=== PATIENT | male | born 1950 | race Caucasian/White ===

== ENCOUNTER 2018-06-08 15:52 | Emergency (ER) | payer OTHER ==
[~2018-06-08] VITALS: Ht 175.3 cm; Wt 77.1 kg
[2018-06-08 16:24] LABS: ABSOLUTE BASOPHIL COUNT 0 /CUMM (0.0-0.2); ABSOLUTE EOSINOPHIL COUNT 0.1 /CUMM (0.0-0.7); ABSOLUTE GRANULOCYTE CT 4.4 /CUMM (1.4-6.5); ABSOLUTE LYMPH COUNT 1.9 /CUMM (1.2-3.4); BASOPHIL % 0.4 % (0.0-2.0); EOSINOPHIL % 1.5 % (0-5); GRANULOCYTE % 59.8 % (42.2-75.2); HEMATOCRIT 43.9 % (42-52); MEAN CORPUSCULAR HGB CONC 33.6 G/DL (33.0-37.0); MEAN CORPUSCULAR VOLUME 89.2 FL (80.0-94.0); MEAN PLATELET VOLUME 7.4 FL (7.4-10.4); PLATELET COUNT 251 /CUMM (130-400); RBC DISTRIBUTION WIDTH 14.4 % (11.5-14.5); RED BLOOD CELL CT 4.92 /CUMM (4.70-6.10); WHITE BLOOD CELL COUNT 7.4 /CUMM (4.8-10.8)
--- NOTE | 2018-06-08 17:05 | ED GI/GU/ABDOMINAL COMPLAINT ---
History of Present Illness General Chief Complaint: Abdominal Pain/Flank Pain Stated Complaint: PER R SIDED ABD PAIN AND "ALOT OF BURPING" Source: patient, family Exam Limitations: no limitations Vital Signs & Intake/Output Vital Signs & Intake/Output Vital Signs Date Time Temp Pulse Resp B/P B/P Pulse O2 O2 Flow FiO2 Mean Ox Delivery Rate 06/08 1948 98.0 76 16 144/88 97 Room Air ED Intake and Output 06/09 0000 06/08 1200 Intake Total 0 Output Total 0 Balance 0 Intake, Oral 0 Output, Urine 0 Patient 170 lb Weight Weight Reported by Patient Measurement Method Allergies Coded Allergies: No Known Allergies (06/08/18) Reconcile Medications Amlodipine Besylate (Unknown Strength) TABLET (Unknown Dose) PO DAILY BP ( Reported) Esomeprazole Magnesium (Nexium) 20 MG CAPSULE.DR 1 CAP PO DAILY GI (Reported) Hydrocodone/Acetaminophen ([place] 5-325 Tablet) 5 MG-325 MG TABLET 1-2 TAB PO Q4-6 PRN PRN pain Metoprolol Succinate (Unknown Strength) TAB (Unknown Dose) PO DAILY HEART/BP (Reported) Ondansetron (Zofran Odt) 4 MG TAB.RAPDIS 1 TAB SL TID PRN nausea Tamsulosin HCl (Flomax) 0.4 MG CAP.ER.24H 1 CAP PO DAILY kideny stones Triage Note: 68 Y/O MALE C/O SUDDEN ONSET RUQ/RLQ PAIN, APPROX 1 HOUR AGO WHILE AT HOME. PT REPORTS NAUSEA. STATES PAIN IS NONRADIATING AND "SHARP". DENIES URINARY SYMPTOMS. HX APPENDECTOMY. PT APPEARS UNCOMFORTABLE. IV EST. TAKEN TO [facility] FOR EVAL Triage Nurses Notes Reviewed? yes Onset: Abrupt Duration: day(s): (1), constant, continues in ED, getting worse Timing: single episode today Quality/Severity: sharpness, severe Severity Numbers: 9 Location: right flank, right lower quadrant, right upper quadrant Radiation: back Activities at Onset: none Prior Abdominal Problems: none Past Sexual History: Unobtainable at this time HPI: 68 year old male with hx of htn presents for eval of sudden onset ruq rlq and rt flank pain. pt was at rest when symptoms started he's never had this before. Describes the pain as sharp radiating from the right back to the right lower quadrant and right flank and groin. No urinary symptoms hematuria testicular pain fever chest pain or shortness of breath. He reports associated nausea and vomiting. No difficulty urinating no abdominal surgeries. (Marialuisa Brown) Past History Travel History Traveled to [place] past 21 day No Medical History Any Pertinent Medical History? 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 No (Marialuisa Brown) Review of Systems Review of Systems Constitutional: Reports: no symptoms. EENTM: Reports: no symptoms. Respiratory: Reports: no symptoms. Cardiovascular: Reports: no symptoms. GI: Reports: see HPI, abdominal pain, nausea, vomiting. Genitourinary: Reports: no symptoms. Musculoskeletal: Reports: see HPI, back pain. Skin: Reports: no symptoms. Neurological/Psychological: Reports: no symptoms. Hematologic/Endocrine: Reports: no symptoms. Immunologic/Allergic: Reports: no symptoms. All Other Systems: Reviewed and Negative (Marialuisa Brown) Physical Exam Physical Exam General Appearance: well developed/nourished, alert, awake, moderate distress Head: atraumatic, normal appearance Eyes: Bilateral: normal appearance, EOMI. Ears, Nose, Throat, Mouth: hearing grossly normal, moist mucous membrane Neck: normal inspection, supple, full range of motion Respiratory: normal breath sounds, chest non-tender, no respiratory distress, lungs clear Cardiovascular: regular rate/rhythm, normal peripheral pulses Peripheral Pulses: 2+ radial (R), 2+ radial (L) Gastrointestinal: normal bowel sounds, soft, no organomegaly, tenderness (rt flank, rlq) Back: normal inspection, normal range of motion, right-sided lumbar paraspinal tenderness to palpation no CVA tenderness no midline tenderness Extremities: normal range of motion Neurologic/Psych: no motor/sensory deficits, awake, alert, oriented x 3, normal gait, normal mood/affect Skin: intact, normal color, warm/dry Core Measures ACS in differential dx? No Sepsis Present: No Sepsis Focused Exam Completed? No (Marialuisa Brown) Progress Differential Diagnosis: biliary colic, bowel obstruction, colon cancer, cholecystitis, diverticulitis, pancreatitis, prostatitis, testicular torsion, ureterolithiasis, urinary retention, urethritis, UTI/pyelo Plan of Care: Laboratory Tests 06/08/18 191: Lactic Acid 1.0 06/08/181899: Urinalysis LIGHT H, Urine Color YEL, Urine Clarity CLEAR, Urine pH 7.0, Ur Specific [place] 1.010, Urine Protein NEG, Urine Ketones TRACE H, Urine Nitrite NEG, Urine Bilirubin NEG, Urine Urobilinogen 0.2, Ur Leukocyte Esterase NEG, Ur Microscopic SEDIMENT EXAMINED, Urine RBC 10-15 H, Urine WBC RARE, Ur Epithelial Cells RARE, Urine Crystals 1+ CA OX H, Urine Mucus FEW, Urine Hemoglobin MOD H , Urine Glucose NEG Patient is here with sudden onset of right lower back flank and right lower quadrant pain. Associated with nausea and vomiting. No hematuria. Vital signs are stable. Labs EKG CT scan ordered patient medicated with fluids Zofran and Toradol. Blood work is not showing any significant findings other than a mildly elevated lactic acid. Additional fluids ordered IV Tylenol ordered for additional pain control. CT scan reveals a distal 3 mm kidney stone that's nearly entered the bladder. Additionally there is a suspicious left renal mass that according the radiologist is likely to be a malignancy. Patient is feeling much better he's able tolerate fluids. Reviewed results with patient. Patient will be treated for his kidney stone pain with [place] Flomax Zofran and ibuprofen. Discussed with patient about left-sided renal mass and the importance of close follow-up with urology. Patient was referred to Dr. Arnett advised to call tomorrow. Discussed return precautions case discussed with Dr. marinelli he agrees. Diagnostic Imaging: Viewed by Me: CT Scan. Discussed w/RAD: CT Scan. Radiology Impression: PATIENT: MARIALUISA ORTIZ PRESENT AGE : 68 PATIENT ACCOUNT NO: [id number] : 51 LOCATION: [facility] ORDERING PHYSICIAN: Marialuisa CHESTER SERVICE DATE: 06/08/18 EXAM TYPE: CAT - CT ABD & PELVIS W IV CONTRAST EXAMINATION: CT ABDOMEN AND PELVIS WITH CONTRAST CLINICAL INFORMATION: Right lower quadrant pain. Nausea/vomiting. COMPARISON: None TECHNIQUE: Multidetector volumetric imaging was performed of the abdomen and pelvis following IV administration of 95 mL of Omnipaque 300 intravenous contrast. Sagittal and coronal reformatted images were obtained on the technologist's workstation. DLP: 308 mGy-cm FINDINGS: LUNG BASES: Minimal dependent atelectasis. LIVER, GALLBLADDER, AND BILIARY TREE: The liver is normal in size, shape, and attenuation. A 6 mm and 4 mm hypoattenuating foci in segments 6 and 5, respectively, are too small to characterize. No suspicious lesions are identified. No biliary ductal dilatation is present. The gallbladder is unremarkable with no evidence of radiopaque gallstones, gallbladder wall thickening, or obvious pericholecystic inflammatory changes. PANCREAS: Unremarkable. SPLEEN: Unremarkable. ADRENAL GLANDS: Unremarkable. KIDNEYS AND URETERS: There is an enhancing 2.8 x 2.7 x 3.2 cm exophytic mass at the posterior margin of the interpolar region of the left kidney. No additional renal lesions are identified. Renal veins are patent. There is mild right perinephric stranding with mild right hydroureteronephrosis. A punctate 2 mm calculus is present within the upper pole of the right kidney. No additional renal calculi. BLADDER: A 3 mm calculus is present in the right posterolateral aspect of the bladder, likely either recently passed or at the internal orifice of the right ureter. Bladder is otherwise normal. GASTROINTESTINAL TRACT: Stomach, small bowel, and colon are normal in caliber. No bowel wall thickening or surrounding inflammatory changes. Appendix is not seen, though no acute inflammatory changes of appendicitis are identified in the right lower quadrant. There are a few colonic diverticula. No evidence of acute diverticulitis. No intraperitoneal free fluid or free air. ABDOMINAL WALL: No significant hernia is appreciated. LYMPH NODES: Normal. VASCULAR: Minimal calcific atherosclerosis in the abdominal aorta. No aneurysmal dilatation. PELVIC VISCERA: Dystrophic central calcifications are present in the prostate gland. Prostate gland is normal in size. OSSEOUS STRUCTURES: Mild multilevel degenerative disc disease. Facet arthropathy is present in the lower lumbar spine as well. No fracture or malalignment. Minimal osteoarthritis in the hips. 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 IMPRESSION: 1. Mild right hydroureteronephrosis and right perinephric stranding is likely produced by a 3 mm calculus at the posterolateral margin of the bladder. This calculus is either within the internal orifice of the right ureter or recently passed into the bladder. 2. A 3.2 cm exophytic enhancing mass at the left kidney, most compatible with neoplasm. Renal cell carcinoma is most likely, though oncocytoma is also possible. Urologic consultation is advised. 3. No evidence of appendicitis. 4. Multiple colonic diverticula without evidence of acute diverticulitis. This critical result was discussed by telephone with Marialuisa Miguel PA-C at 6:18 PM on 06/08/2018 . DICTATED BY: Jd Guaman MD DATE/TIME DICTATED:06/08/181803 AUGER SUPERVISOR:GILBERT DATE/TIME TRANSCRIBED:06/08/181803 CONFIDENTIAL, DO NOT COPY WITHOUT APPROPRIATE AUTHORIZATION. <Electronically signed in Other Vendor System> SIGNED BY: Jd Guaman MD 06/08/181827 Initial ED EKG: normal sinus rhythm, RBBB, nonspecific ST T wave chg (Marialuisa Brown) Departure Departure Disposition: HOME OR SELF CARE Condition: Stable Clinical Impression Primary Impression: Kidney stone Secondary Impressions: Renal mass Referrals: Melquiades SHI,Jose Alberto Juarez MD,Iain Barba (PCP/Family) Additional Instructions: Rest and drink plenty of fluids. Flomax as directed. Zofran for nausea. Tylenol for pain and [place] for severe pain only. You need to call Dr. Arnett tomorrow for further evaluation of her kidney stone and renal mass. Monitor symptoms if you have worsening pain and fever unable tolerate fluids unable to urinate or any other concerns return immediately. Departure Forms: Customer Survey General Discharge Information Prescriptions: Current Visit Scripts Tamsulosin HCl (Flomax) 1 CAP PO DAILY #15 CAP Ondansetron (Zofran Odt) 1 TAB SL TID PRN nausea #15 TAB Hydrocodone/Acetaminophen ([place] 5-325 Tablet) 1-2 TAB PO Q4-6 PRN PRN pain #10 TAB (Marialuisa Brown) PA/RITUAL CIRCUMCISER Co-Sign Statement Statement: ED Attending supervision documentation- x I saw and evaluated the patient. I have also reviewed all the pertinent lab results and diagnostic results. I agree with the findings and the plan of care as documented in the PA's/RITUAL CIRCUMCISER's documentation. [] I have reviewed the ED Record and agree with the PA's/RITUAL CIRCUMCISER's documentation. [] Additions or exceptions (if any) to the PAs/RITUAL CIRCUMCISER's note and plan are summarized below: [] (Darlene SHI,Sherwin)
[2018-06-08] MEDS ORDERED: METOPROLOL SUCC25 M1 PO (17:58)
[2018-06-08] MEDS ORDERED: NEXIUM20 M1 PO (17:58)
[2018-06-08] MEDS ORDERED: AMLODIPINE BES2.5 M1 PO (17:58)
--- NOTE | 2018-06-08 18:28 | CT SCAN REPORT ---
EXAMINATION: CT ABDOMEN AND PELVIS WITH CONTRAST CLINICAL INFORMATION: Right lower quadrant pain. Nausea/vomiting. COMPARISON: None TECHNIQUE: Multidetector volumetric imaging was performed of the abdomen and pelvis following IV administration of 95 mL of Omnipaque 300 intravenous contrast. Sagittal and coronal reformatted images were obtained on the technologist's workstation. DLP: 308 mGy-cm FINDINGS: LUNG BASES: Minimal dependent atelectasis. LIVER, GALLBLADDER, AND BILIARY TREE: The liver is normal in size, shape, and attenuation. A 6 mm and 4 mm hypoattenuating foci in segments 6 and 5, respectively, are too small to characterize. No suspicious lesions are identified. No biliary ductal dilatation is present. The gallbladder is unremarkable with no evidence of radiopaque gallstones, gallbladder wall thickening, or obvious pericholecystic inflammatory changes. PANCREAS: Unremarkable. SPLEEN: Unremarkable. ADRENAL GLANDS: Unremarkable. KIDNEYS AND URETERS: There is an enhancing 2.8 x 2.7 x 3.2 cm exophytic mass at the posterior margin of the interpolar region of the left kidney. No additional renal lesions are identified. Renal veins are patent. There is mild right perinephric stranding with mild right hydroureteronephrosis. A punctate 2 mm calculus is present within the upper pole of the right kidney. No additional renal calculi. BLADDER: A 3 mm calculus is present in the right posterolateral aspect of the bladder, likely either recently passed or at the internal orifice of the right ureter. Bladder is otherwise normal. GASTROINTESTINAL TRACT: Stomach, small bowel, and colon are normal in caliber. No bowel wall thickening or surrounding inflammatory changes. Appendix is not seen, though no acute inflammatory changes of appendicitis are identified in the right lower quadrant. There are a few colonic diverticula. No evidence of acute diverticulitis. No intraperitoneal free fluid or free air. ABDOMINAL WALL: No significant hernia is appreciated. LYMPH NODES: Normal. VASCULAR: Minimal calcific atherosclerosis in the abdominal aorta. No aneurysmal dilatation. PELVIC VISCERA: Dystrophic central calcifications are present in the prostate gland. Prostate gland is normal in size. OSSEOUS STRUCTURES: Mild multilevel degenerative disc disease. Facet arthropathy is present in the lower lumbar spine as well. No fracture or malalignment. Minimal osteoarthritis in the hips. 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 IMPRESSION: 1. Mild right hydroureteronephrosis and right perinephric stranding is likely produced by a 3 mm calculus at the posterolateral margin of the bladder. This calculus is either within the internal orifice of the right ureter or recently passed into the bladder. 2. A 3.2 cm exophytic enhancing mass at the left kidney, most compatible with neoplasm. Renal cell carcinoma is most likely, though oncocytoma is also possible. Urologic consultation is advised. 3. No evidence of appendicitis. 4. Multiple colonic diverticula without evidence of acute diverticulitis. This critical result was discussed by telephone with Jose Miguel PA-C at 6:18 PM on 06/08/2018 .
[2018-06-08] MEDS ORDERED: NORCO 5-325 TA1 EACH PO (19:43)
[2018-06-08] MEDS ORDERED: FLOMAX0.4 M1 PO (19:43)
[2018-06-08] MEDS ORDERED: ZOFRAN ODT4 M1 SL (19:43)
[2018-06-08 19:48] VITALS: BP 144/88
== END 2018-06-08 19:57 ==
LOC: ERH 15:52
PROVIDERS: Physician Assistant Medical
DX: N20.0 Calculus of kidney (principal); N28.89 Other specified disorders of kidney and ureter
CPT/HCPCS: 74177; 81001; 93005; 93010; 96374; 96375; J0131; J1885; J2405

== ENCOUNTER 2018-07-01 01:49 | Inpatient (IN) | payer OTHER ==
[~2018-07-01] VITALS: Ht 175.3 cm; Wt 78.0 kg
[~2018-07-01 01:49] MED LIST: AMLODIPINE BES2.5 M1 PO; FLOMAX0.4 M1 PO; METOPROLOL SUCC25 M1 PO; NEXIUM20 M1 PO; NORCO 5-325 TA1 EACH PO; ZOFRAN ODT4 M1 SL
--- NOTE | 2018-07-01 13:43 | Operative Report ---
Operative/Inv Procedure Report Surgery Date: 07/01/18 Name of Procedure: left radical: laproscopic hand assist nephrectomy: cystoscopy with left stent insertion. Pre-Operative Diagnosis: left renal mass Post-Operative Diagnosis: same Estimated Blood Loss: 50ml to 100ml Surgeon/Manager Commercial Sales: Jose Alberto Arnett MD Anesthesia: general endotracheal tube Drains: 16 fr chacon Specimens: left kidney with ureter: urine culture Microbiology: ucx sent Complications: none Operative Indication: large left renal mass abutting renal pelvis Operative/Procedure Note Note: Pre-operative review of procedure with risks and benefits discussed with pt and his at length. Both reviewed CT findings with me to visualize mass/ surrounding abdominal anatomy. All questions answered for pt. and pre-op. The patient was taken to the operating room and placed on the OR table in supine position. Timeout was performed, with the patient awake, to confirm correct patient identity, laterality, procedure, anesthesia, and other pertinent intraoperative information. After adequate anesthesia and antibiotics, the patient was then placed lithotomy stirrups draped and prepped in usual surgical fashion. :Local block per anesthesia was performed. Afterward, I was able to use a 22French cystoscope sheath with 30 angle lens, which was inserted under direct visualization into the urethra. Upon entering the bladder, the bladder was noted to be free of tumor free, free of stone. Both ureteral orifices were in their orthotopic position with clear reflux bilaterally. The left ureteral orifice was intubated with a 6 Macedonian open-ended catheter, which was advanced to the left renal pelvis without difficulty. This ureteral stent is utilized intraoperatively to easily identify, and confirm the left ureter (The stent is subsequently removed by the circulating nurse, under the drapes, once the ureter is identified and ready for transection). The open ended stent was then attached to a ureter drainage bag. The bladder was left full, and the cystoscope was removed leaving this stent in place. An 18 Macedonian Chacon catheter was inserted without difficulty draining clear fluid. 10 mL of sterile water was placed into the balloon. At this point the patient was then placed in a modified right side down, left side up (15 degree angle) position, with slight lisa-knife, and kidney rest elevated at proper flank position. The patient's bony prominences were well- padded with eggcrate foam and pillows. The patient was secured to OR the table with 3 inch silk tape, and strap. A 7 cm vivek-umbilical, and inferior midline incision was made using a 10 blade knife. This incision was then further open through the adipose tissue, to the rectus fascia using Bovie cautery. With the midline of the fascia clearly visualized, a 15 blade knife was then used to incise the fascia, at the linia alba, and the rectus muscle at the midline. The peritoneum was identified and incised using Metzenbaum scissor. The fascial incision was extended along the entire length of the skin incision. Intestine was noted to be intact without injury at this point. The gel-port was then inserted into the abdomen appropriatly without tethering. Using a blunt trocar through the GelPort, insufflation was then performed with a maximum pressure of 12 mmHg. The laparoscope was then inserted through the port, and exploratory laparoscopy was then performed revealing the findings as above. A 12 mm port was then inserted in the lower mid-clavicular region by using a 15 blade knife to make an incision, and the verese-dilating port was inserted under direct visualization- with the laparoscope in the GelPort site for direct vision. A second 12 mm port was then inserted in the left mid axilary abdominal site, using the same direct-vision/versese self-dilating technique. My double gloved left hand was then placed through the GelPort, the laparoscope was placed in the lower mid axilary port, and the Harmonic scalpel was placed in the left mid-clavicular port. The small intestines were mobilized medially in order to expose the ledt side white line of Toldt. Using Harmonic scalpel, the white line of Toldt was incised from the left lower quadrant all the way to the left splenic flexure, thus releasing the large bowel on the left side. The bowel was then gently mobilized medially, in order to expose the Gerona's fascia. Blunt and sharp dissection using the Harmonic scalpel was performed in order to release the lateral fascial attachments of the left kidney. Blunt and sharp dissection, with harmonic, was then performed superiorly in order to release the kidney superiorly including the Gerona's fascia. The adrenal gland, and the splenic vessels were visualized and uninjured. The left kidney being mobilized, the lower pole renal mass was easily identified, and it felt hard. Anterior dissection; using blunt, and endoshear dissection, was performed in order to gently expose the left renal arter (solitary), and solitary left renal vein. With the kidney mobilized superiorly, laterally, and posteriorly, the inferior portion was blunt and sharply dissected. The left ureter was clearly identified with the stent in place. The circulating nurse was then able to remove the stent under the drapes. The ureter was then clipped using multiple clips inferiorly and and superiorly with a space of 2 cm and between the clips. Harmonic scalpel was then used to transect the right ureter between the clips. Blunt and sharp dissection was then performed superior to the ureter following the ureter in order to reach the duodenum. Further skeletonizatio/ddissection of the renal pedicle was performed in order to clear the left renal artery, and left renal vein of excessive of excess areoral/adipose tissue. Despite multiple attempts, I was not able to adequately isolate the left renal artery from the left renal vein. I therefore decided to transect the vascular pedicle all together. Using the vascular maria antonia, with a laproscopic Endo JUNAA, the stapling device was placed over the entire vascular pedicle, and clamped securely. The stapling devise was fired, and the artery and vein were transsected and adequately stapled at the same time. Good hemostasis was noted, and the kidney softened. With the kidney well mobilized superiorly, medially, inferiorly, laterally, posteriorly, the left kidney was then easily extracted through the Gel-port site, and sent to pathology. The abdomen was thoroughly irrigated with sterile water, and the fluid was then aspirated. Noted to be free of hemorrhage, and the left renal pedicle was the re-evaluated, noted to be intact without any bleeding. Surgi-riya, and coagulating powder, was placed over the surgical field as well as over the renal pedicle stump. The intestines, spleen, liver, were once again investigated and noted to be intact. The intestines were then allowed to fall back into their anatomic positions. Both of the trocar PORTS WERE THEN REMOVED ;WITH THE FASCIA OF BOTH PORTS closed WITH 0-VICRYL [id number]-NEROX STITCH. THE port-site SKIN WAS CLOSED USING skin maria antonia. THE GEL-PORT INCISION WAS THEN CLOSED BY RE-APPROXIMATING THE FASCIA WITH A LOOPED 0 -PROLENE SUTURE, MAKING CERTAIN THAT NO INTESTINES WERE injured or CAUGHT IN- BETWEEN THE STITCHES. THE DONYA'S FASCIA WAS THEN RE-APPROXIMATED USING INTERRUPTED 2-0 chromic sutures in order to collapse the -space. The wound was once again copiously irrigated with sterile water, and dried noting good hemostasis. The skin was then closed using skin-maria antonia and island dressing. All sponge, needle, and instrument count was correct at the end of the case. The patient tolerated procedures well, was then extubated, and taken to the recovery room in satisfactory condition. Findings: rock hard left lp renal mass: gerota's fashia intact and pliable. vasular pedicle without palpable mass/clot/plaque. no desmoplastic changes. Discharge Disposition: PACU Additional Comments: pt to ICU for close observation: ICU notified pre-op. CC: Jose Alberto Arnett MD
[2018-07-01 14:39] LABS: ABSOLUTE BASOPHIL COUNT 0 /CUMM (0.0-0.2); ABSOLUTE EOSINOPHIL COUNT 0 /CUMM (0.0-0.7); ABSOLUTE GRANULOCYTE CT 15.3 /CUMM (1.4-6.5); ABSOLUTE LYMPH COUNT 0.5 /CUMM (1.2-3.4); ABSOLUTE MONOCYTE COUNT 0.3 /CUMM (0.10-0.60); BASOPHIL % 0 % (0.0-2.0); EOSINOPHIL % 0 % (0-5); HEMATOCRIT 40.3 % (42-52); MEAN CORPUSCULAR HGB 30.2 PG (27.0-31.0); MEAN CORPUSCULAR HGB CONC 33.6 G/DL (33.0-37.0); MEAN CORPUSCULAR VOLUME 89.9 FL (80.0-94.0); MEAN PLATELET VOLUME 7.5 FL (7.4-10.4); PLATELET COUNT 184 /CUMM (130-400); RED BLOOD CELL CT 4.48 /CUMM (4.70-6.10)
--- NOTE | 2018-07-01 14:50 | RADIOLOGY REPORT ---
EXAMINATION: CHEST 1 VIEW CLINICAL INFORMATION: Status post nephrectomy. In PACU. Follow-up. COMPARISON: 08/10/2013. TECHNIQUE: An AP view of the chest is provided. FINDINGS: The cardiac silhouette is not enlarged. The mediastinal and hilar contours are unremarkable. There are neither pleural effusions nor pneumothoraces. There are no consolidations. The osseous structures are stable. IMPRESSION: No evidence for acute disease.
[2018-07-01 14:54] LABS: GRANULOCYTE % 95.1 % (42.2-75.2)
--- NOTE | 2018-07-01 16:35 | PN- Urology ---
See Addendum Subjective Subjective: POST-OP NOTE Sleeping in PACU. 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 Awaiting transfer to ICU. No dizziness. No shortness of breath. No chest pains. Labs and xray stable. Objective Vital Signs and I&Os Intake & Output 07/01 1600 07/01 0800 07/01 0000 06/30 1600 06/30 0800 06/30 0000 Intake Total Output Total Balance Patient 170 lb Weight pacu flowsheet reviewed, vss Physical Exam: General - sleepy. comfortable. no acute distress. Lungs - clear bilaterally. no w/r/r. Cardiac - s1s2. reg. Abdomen - midline dressing stained, but intact. no drains. - chacon draining clear, yellow urine. Extremities - warm bilaterally. no c/c/e. calves soft and nontender b/l. athrombics active b/l. Current Medications: Current Medications Sig/Lizeth Start time Last Medication Dose Route Stop Time Status Admin Ciprofloxacin 500 MG ONCE 07/01 0000 NR PO 07/01 2359 Hydromorphone HCl 50 MG Q24H PRN 07/01 1415 AC Sodium Chloride 45 ML IV Results Last 48 Hours of Labs: Laboratory Tests 07/01 1425 Chemistry Sodium (137 - 145 mmol/L) 140 Potassium (3.5 - 5.1 mmol/L) 3.7 Chloride (98 - 107 mmol/L) 106 Carbon Dioxide (22 - 30 mmol/L) 23 Anion Gap (5 - 16) 11 BUN (9 - 20 mg/dL) 16 Creatinine (0.7 - 1.2 mg/dL) 0.9 Estimated GFR (>60 ml/min) > 60 BUN/Creatinine Ratio (7 - 25 %) 17.8 Hematology CBC w Diff NO MAN DIFF REQ WBC (4.8 - 10.8 /CUMM) 16.0 H RBC (4.70 - 6.10 /CUMM) 4.48 L Hgb (14.0 - 18.0 G/DL) 13.5 L Hct (42 - 52 %) 40.3 L MCV (80.0 - 94.0 FL) 89.9 MCH (27.0 - 31.0 PG) 30.2 MCHC (33.0 - 37.0 G/DL) 33.6 RDW (11.5 - 14.5 %) 14.0 Plt Count (130 - 400 /CUMM) 184 MPV (7.4 - 10.4 FL) 7.5 Gran % (42.2 - 75.2 %) 95.1 H Lymphocytes % (20.5 - 51.1 %) 3.0 L Monocytes % (1.7 - 9.3 %) 1.9 Eosinophils % (0 - 5 %) 0 Basophils % (0.0 - 2.0 %) 0 Absolute Granulocytes (1.4 - 6.5 /CUMM) 15.3 H Absolute Lymphocytes (1.2 - 3.4 /CUMM) 0.5 L Absolute Monocytes (0.10 - 0.60 /CUMM) 0.3 Absolute Eosinophils (0.0 - 0.7 /CUMM) 0 Absolute Basophils (0.0 - 0.2 /CUMM) 0 Assessment/Plan Assessment/Plan This 68 year old male is POD#0 s/p left radical laparoscopic hand-assist nephrectomy, and cystoscopy with left stent insertion for left renal mass currently npo / 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
[2018-07-01 18:30] VITALS: BP 190/100
--- NOTE | 2018-07-01 19:53 | Admission Core Measures ---
Acute Coronary Syndrome (CM) ACS Core Measures Acute Coronary Syndrome Diagnosis No Congestive Heart Failure (NEW) CHF Core Measures Congestive Heart Failure Diagnosis No Cerebrovascular Accident CVA Core Measures CVA/TIA Diagnosis No Venous Thromboembolism VTE Core Fredo (View Protocol) VTE Risk Factors Surgery No Mechanical VTE Prophylaxis d/t N/A MechProphylax Ordered No VTE Pharm Prophylaxis d/t NA PharmProphylax ordered Problem List As ranked by this Provider includes Assessment & Plan 1. Renal mass HOME MEDS Home Med List Amlodipine Besylate (Unknown Strength) TABLET (Unknown Dose) PO DAILY BP ( Reported) Esomeprazole Magnesium (Nexium) 20 MG CAPSULE.DR 1 CAP PO DAILY GI (Reported) Metoprolol Succinate 25 MG TAB 1 TAB PO DAILY HTN (Reported)
[2018-07-01 20:00] VITALS: BP 164/88
[2018-07-01 21:00] VITALS: BP 162/84
[2018-07-02 05:58] LABS: ABSOLUTE BASOPHIL COUNT 0 /CUMM (0.0-0.2); ABSOLUTE EOSINOPHIL COUNT 0 /CUMM (0.0-0.7); ABSOLUTE GRANULOCYTE CT 18.2 /CUMM (1.4-6.5); ABSOLUTE LYMPH COUNT 0.7 /CUMM (1.2-3.4); ABSOLUTE MONOCYTE COUNT 1.9 /CUMM (0.10-0.60); BASOPHIL % 0 % (0.0-2.0); EOSINOPHIL % 0 % (0-5); GRANULOCYTE % 87.8 % (42.2-75.2); HEMATOCRIT 41.1 % (42-52); MEAN CORPUSCULAR HGB 30.1 PG (27.0-31.0); MEAN CORPUSCULAR HGB CONC 33.3 G/DL (33.0-37.0); MEAN CORPUSCULAR VOLUME 90.4 FL (80.0-94.0); PLATELET COUNT 239 /CUMM (130-400); RBC DISTRIBUTION WIDTH 14.2 % (11.5-14.5); RED BLOOD CELL CT 4.55 /CUMM (4.70-6.10); WHITE BLOOD CELL COUNT 20.7 /CUMM (4.8-10.8)
--- NOTE | 2018-07-02 07:38 | PN- Urology ---
Subjective Subjective: Patient evaluated in the ICU. No acute events overnight. Remains mildly hypertensive. Chacon in place. No aphasia, no difficulty swallowing. No significant increase in left arm function. Still complains of moderate to severe abdominal left flank pain. No nausea. Morphine is helping. No bowel movements, no flatus Objective Vital Signs and I&Os Vital Signs Date Time Temp Pulse Resp B/P B/P Pulse O2 O2 Flow FiO2 Mean Ox Delivery Rate 07/02 99 Nasal 2.0L Cannula 07/01 2100 82 14 162/84 07/01 2000 97.0 80 14 164/88 07/01 2000 99 Nasal 2.0L Cannula 07/01 1830 97.7 83 18 190/100 07/010 83 190/100 07/01 1830 97.7 83 20 190100 100 Nasal 2.0L Cannula 07/01 1830 100 Nasal 2.0L Cannula Intake & Output 07/02 0807/02 0000 07/01 1600 07/01 0800 07/01 0000 06/30 1600 Intake Total 1106 711 Output Total 500 350 Balance 606 361 Intake, IV 1056 711 Intake, Oral 50 0 Number 0 0 Bowel Movements Output, Urine 500 350 Patient 173 lb 170 lb Weight Weight Reported by Patient Measurement Method Physical Exam: Well-developed well-nourished no apparent distress. Mildly drowsy but arousable. HEENT: Atraumatic, extraocular motion intact, no significant asymmetry Neck: Supple, no lymphadenopathy Respiratory: No respiratory distress Abdomen: Lower midline incision with trace amount of serosanguineous drainage, dry. Appropriate abdominal tenderness. Extremities: No edema, no calf pain Neuro: Alert and oriented x3, speech clear, smile with mild asymmetry although likely baseline, no significant facial droop Left upper extremity, no motor function of the trapezius deltoid biceps or triceps, patient is able to grasp, 2 out of 5 strength, no wrist drop. No significant change from previous exam last evening. Psych: Mood affect normal, normal memory normal judgment. Skin: Warm and dry, no rash on exposed skin Results Last 48 Hours of Labs: Laboratory Tests 07/02 07/01 0440 1425 Chemistry Sodium (137 - 145 mmol/L) 137 140 Potassium (3.5 - 5.1 mmol/L) 3.9 3.7 Chloride (98 - 107 mmol/L) 101 106 Carbon Dioxide (22 - 30 mmol/L) 22 23 Anion Gap (5 - 16) 14 11 BUN (9 - 20 mg/dL) 18 16 Creatinine (0.7 - 1.2 mg/dL) 1.3 H 0.9 Estimated GFR (>60 ml/min) 55 L > 60 BUN/Creatinine Ratio (7 - 25 %) 13.8 17.8 Hematology CBC w Diff MAN DIFF ORDERED NO MAN DIFF REQ WBC (4.8 - 10.8 /CUMM) 20.7 H 16.0 H RBC (4.70 - 6.10 /CUMM) 4.55 L 4.48 L Hgb (14.0 - 18.0 G/DL) 13.7 L 13.5 L Hct (42 - 52 %) 41.1 L 40.3 L MCV (80.0 - 94.0 FL) 90.4 89.9 MCH (27.0 - 31.0 PG) 30.1 30.2 MCHC (33.0 - 37.0 G/DL) 33.3 33.6 RDW (11.5 - 14.5 %) 14.2 14.0 Plt Count (130 - 400 /CUMM) 239 184 MPV (7.4 - 10.4 FL) 8.0 7.5 Gran % (42.2 - 75.2 %) 87.8 H 95.1 H Lymphocytes % (20.5 - 51.1 %) 3.2 L 3.0 L Monocytes % (1.7 - 9.3 %) 9.0 1.9 Eosinophils % (0 - 5 %) 0 0 Basophils % (0.0 - 2.0 %) 0 0 Absolute Granulocytes (1.4 - 6.5 /CUMM) 18.2 H 15.3 H Segmented Neutrophils (42.2 - 75.2 %) 88 H Absolute Lymphocytes (1.2 - 3.4 /CUMM) 0.7 L 0.5 L Lymphocytes (20.5 - 51.1 %) 4 L Monocytes (1.7 - 9.3 %) 8 Absolute Monocytes (0.10 - 0.60 /CUMM) 1.9 H 0.3 Absolute Eosinophils (0.0 - 0.7 /CUMM) 0 0 Absolute Basophils (0.0 - 0.2 /CUMM) 0 0 Platelet Estimate (ADEQUATE) ADEQUATE Polychromasia 1+ Ovalocytes FEW Other Body Source Fld Total RBCs Counted (%) 100 Urine output: 500 cc last 8 hours Assessment/Plan Assessment/Plan This 68 year old male is POD#1 s/p left radical laparoscopic hand-assist nephrectomy, and cystoscopy with left stent insertion for left renal mass Continue clears Mild acute kidney injury, continue IV fluids, recheck creatinine tomorrow H&H stable Percocet and morphine for pain as needed iv tylenol q6 atc vivek-operative ancef x 2 doses completed hep sc - dvt ppx, Alps for DVT prophylaxis chacon for strict i/o's Moderate hypertension, discussed with nursing, to give morning meds early and continue to monitor, may need increase in oral antihypertensives avoid NSAIDS Left upper extremity neuropraxia, likely from anesthesia block versus OR positioning, doubt CVA, continue to monitor will d/w Core Measures Venous Thromboembolism VTE Risk Factors Surgery No Mechanical VTE Prophylaxis d/t N/A MechProphylax Ordered No VTE Pharm Prophylaxis d/t NA PharmProphylax ordered
[2018-07-02 08:00] VITALS: BP 172/90
--- NOTE | 2018-07-02 08:52 | CT SCAN REPORT ---
EXAMINATION: CT HEAD WITHOUT CONTRAST CLINICAL INFORMATION: Left upper extremity weakness and left-sided facial droop. COMPARISON: None TECHNIQUE: Contiguous axial imaging was performed from the skull base to vertex without intravenous administration of contrast. DLP: 620 mGy-cm FINDINGS: Brain parenchyma: There is an area of decreased attenuation involving the superior aspect of the right caudate head and right lentiform nucleus; this could represent an acute infarction in the lenticulostriate artery territory. Old lacunar infarct and/or prominent perivascular space of the right basal ganglia. There appears to be an old, small lacunar infarct within the right centrum semiovale. Also, within the right superior frontal gyrus, there is a small area of decreased attenuation with loss of james-white differentiation, likely an old infarction; no associated mass effect. Otherwise, the james-white matter differentiation is well preserved. No evidence of intracranial hemorrhage, mass or midline shift. Cerebrospinal fluid spaces: Normal. No hydrocephalus or extra-axial fluid collections. Cerebellum and brainstem: Unremarkable. The 4th ventricle is midline in position. The cerebellopontine angles are normal. Calvarium and temporomandibular joints: Calvarium is intact. Mastoid air cells and middle ear cavities are well aerated. The TMJs are normal. Paranasal sinuses and orbits: The visualized paranasal sinuses are well aerated. The visualized orbits and globes are unremarkable. Other: No acute findings in the visualized extracranial soft tissues. IMPRESSION: 1. No intracranial hemorrhage. 2. Findings consistent with acute infarction involving the right lenticulostriate artery territory. The critical test result was discussed with NEMO Duenas, at 8:48 am on 07/02/2018 and it was ascertained that the content and the importance of the findings was understood at the time of the direct communication.
--- NOTE | 2018-07-02 09:16 | Cons- CRCU ---
General Information and HPI Consulting Request Date of Consult: 07/02/18 Requested By: urology team Reason for Consult: Ischemic stroke Source of Information: patient, family Exam Limitations: no limitations History of Present Illness: 68 YO M with PMH of hypertension, remote history of cardiac contusion due to trauma, prior laryngeal cancer, and a renal cell carcinoma status post nephrectomy yesterday. After surgery he was in his usual state of health when he noticed having facial droop and left-sided weakness. Patient had surgery yesterday and they after the surgery so TPA was contraindicated. Patient denied chest pain, palpitation, nausea, vomiting, chills, fever, abdominal pain dysuria. Patient has left-sided droop and left hemiparesis with power 23/5 Allergies/Medications Allergies: Coded Allergies: No Known Allergies (06/30/18) Home Med List: Amlodipine Besylate (Unknown Strength) TABLET (Unknown Dose) PO DAILY BP ( Reported) Esomeprazole Magnesium (Nexium) 20 MG CAPSULE.DR 1 CAP PO DAILY GI (Reported) Metoprolol Succinate 25 MG TAB 1 TAB PO DAILY HTN (Reported) Review of Systems Review of Systems Constitutional: Denies: chills, fever. EENTM: Reports: no symptoms. Cardiovascular: Denies: chest pain, palpitations, syncope. Respiratory: Denies: cough, short of breath, sputum production, wheezing. GI: Denies: abdominal pain, diarrhea, melena, nausea, vomiting. Genitourinary: Reports: no symptoms. Musculoskeletal: Reports: see HPI. Neurological/Psychological: Reports: see HPI. 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 Home Services at Home: None Smoking Status: Former Smoker Exam & Diagnostic Data Last 24 Hrs of Vital Signs/I&O Vital Signs Date Time Temp Pulse Resp B/P B/P Pulse O2 O2 Flow FiO2 Mean Ox Delivery Rate 07/02 1422 98.2 07/02 1200 94 Room Air Room Air 07/02 0812 83 170/90 07/02 0812 83 170/90 07/02 0800 97.8 90 20 172/90 99 Nasal 2.0L Cannula 07/02 0800 100 Nasal 2.0L Cannula 07/02 0400 99 Nasal 2.0L Cannula 07/02 0000 99 Nasal 2.0L Cannula 07/01 2100 82 14 162/84 07/01 2000 97.0 80 14 164/88 07/01 2000 99 Nasal 2.0L Cannula 07/01 1830 97.7 83 18 190/100 07/01 1830 83 190/100 07/01 1830 97.7 83 20 190/100 100 Nasal 2.0L Cannula 07/01 1830 100 Nasal 2.0L Cannula Intake & Output 07/02 1600 07/02 0800 08 0000 Intake Total 725 1106 711 Output Total 625 500 350 Balance 100 606 361 Intake, IV 725 1056 711 Intake, Oral 0 50 0 Number 0 0 Bowel Movements Output, Urine 625 500 350 Patient 173 lb Weight Weight Reported by Patient Measurement Method Physical Exam General Appearance: well developed/nourished, no apparent distress, alert, awake Head: atraumatic, normal appearance Eyes: Bilateral: normal appearance, PERRL, EOMI. Ears, Nose, Throat: normal pharynx Neck: normal inspection, supple Respiratory: normal breath sounds, chest non-tender Cardiovascular: regular rate/rhythm Gastrointestinal: normal bowel sounds, soft Extremities: normal inspection, LEFT UE POWER 2-3/5, LEFT LE POWER 2-3/5 Neurologic/Psych: awake, alert, oriented x 3, motor weakness, LEFT FACIAL DROOP. Last 48 Hrs of Labs/Avinash: Laboratory Tests 07/03/18 0505: Sodium Pending, Potassium Pending, Chloride Pending, Carbon Dioxide Pending, Anion Gap Pending, BUN Pending, Creatinine Pending, BUN/Creatinine Ratio Pending , Magnesium Pending, Triglycerides Pending, Cholesterol Pending, LDL Cholesterol , Calc Pending, HDL Cholesterol Pending, Cholesterol/HDL Ratio Pending, CBC w Diff Pending, WBC Pending, RBC Pending, Hgb Pending, Hct Pending, MCV Pending, MCH Pending, MCHC Pending, RDW Pending, Plt Count Pending, MPV Pending 07/02/18 0440: Anion Gap 14, Estimated GFR 55 L, BUN/Creatinine Ratio 13.8, CBC w Diff MAN DIFF ORDERED, RBC 4.55 L, MCV 90.4, MCH 30.1, MCHC 33.3, RDW 14.2, MPV 8.0, Gran % 87.8 H, Lymphocytes % 3.2 L, Monocytes % 9.0, Eosinophils % 0, Basophils % 0, Absolute Granulocytes 18.2 H, Segmented Neutrophils 88 H, Absolute Lymphocytes 0.7 L, Lymphocytes 4 L, Monocytes 8, Absolute Monocytes 1.9 H, Absolute Eosinophils 0, Absolute Basophils 0, Platelet Estimate ADEQUATE , Polychromasia 1+, Ovalocytes FEW, Fld Total RBCs Counted 100 07/01/18 1425: Anion Gap 11, Estimated GFR > 60, BUN/Creatinine Ratio 17.8, CBC w Diff NO MAN DIFF REQ, RBC 4.48 L, MCV 89.9, MCH 30.2, MCHC 33.6, RDW 14.0, MPV 7.5, Gran % 95.1 H, Lymphocytes % 3.0 L, Monocytes % 1.9, Eosinophils % 0, Basophils % 0, Absolute Granulocytes 15.3 H, Absolute Lymphocytes 0.5 L, Absolute Monocytes 0.3, Absolute Eosinophils 0, Absolute Basophils 0 Assessment/Plan CRCU Impression/Plan: Acute left hemiplegia Renal cell CA s/p nephrectomy H/O of hypertension H/O GERD and remote laryngeal CA cured Acute ischemic stroke: -Considering recent nephrectomy tPA was contraindicated, so will treat the patient in ICU conservatively. -Head end elevation -Allow permissive hypertension, consider antihypertensive if his BP >220 systolic or 120 diastolic. -Carotid doppler to rule out carotid atherosclerosis -Cardiac echo with bubble study to see if patent fossa ovale that can cause cryptogenic infarct. And look for thrombus in atria. -Continue tele monitoring to see proxysma Af.b that could cause embolism and infact. -Continue aspirin -Continue high dose lipitor. -Continue D5 normal saline. -Patient failed bed side swallow eval test. We will do formal swallow evaluation. -Keep NPO to prevent aspiration, only can take meds. -Neuro consult for further recommendations H/O GERD: -Continue iv protonix H/O HTN: -Holding antihypertensives for permissive hypertension. DVT prophylaxis: Mechanical and s/c heparin Code status: Full code. Problem List: 1. Ischemic stroke Consult Acknowledgment - Thank you for your consult request.
--- NOTE | 2018-07-02 09:16 | Event Note ---
Event Note Event Note: Patient re-evaluated this morning. Noted to have persistent left sided facial droop and weakness to left upper extremity, bicep/tricep region. Also noted to have persistent fatigue. Patient is oriented but sleeping on and off through exam, minimal answers and minimal participation. Dr. Arnett at bedside. Stat CT of head and neck ordered. Results discussed with radiology, reading as follows: PATIENT: MARIALUISA ORTIZ PRESENT AGE: 68 PATIENT ACCOUNT NO: [id number] : 51 LOCATION: [facility] ORDERING PHYSICIAN: Mohini Cabrera [facility] DATE: 07/02/18 EXAM TYPE: CAT - CT HEAD WO IV CONTRAST EXAMINATION: CT HEAD WITHOUT CONTRAST CLINICAL INFORMATION: Left upper extremity weakness and left-sided facial droop. COMPARISON: None TECHNIQUE: Contiguous axial imaging was performed from the skull base to vertex without intravenous administration of contrast. DLP: 620 mGy-cm FINDINGS: Brain parenchyma: There is an area of decreased attenuation involving the superior aspect of the right caudate head and right lentiform nucleus; this could represent an acute infarction in the lenticulostriate artery territory. Old lacunar infarct and/or prominent perivascular space of the right basal ganglia. There appears to be an old, small lacunar infarct within the right centrum semiovale. Also, within the right superior frontal gyrus, there is a small area of decreased attenuation with loss of james-white differentiation, likely an old infarction; no associated mass effect. Otherwise, the james-white matter differentiation is well preserved. No evidence of intracranial hemorrhage, mass or midline shift. Cerebrospinal fluid spaces: Normal. No hydrocephalus or extra-axial fluid collections. Cerebellum and brainstem: Unremarkable. The 4th ventricle is midline in position. The cerebellopontine angles are normal. Calvarium and temporomandibular joints: Calvarium is intact. Mastoid air cells and middle ear cavities are well aerated. The TMJs are normal. Paranasal sinuses and orbits: The visualized paranasal sinuses are well aerated. The visualized orbits and globes are unremarkable. Other: No acute findings in the visualized extracranial soft tissues. IMPRESSION: 1. No intracranial hemorrhage. 2. Findings consistent with acute infarction involving the right lenticulostriate artery territory. The critical test result was discussed with NEMO Duenas, at 8:48 am on 07/02/2018 and it was ascertained that the content and the importance of the findings was understood at the time of the direct communication. DICTATED BY: Jefferson Tubbs MD DATE/TIME DICTATED:07/02/18834 ASSOCIATE SOFTWARE APPLICATION ENGINEER:GILBERT DATE/TIME TRANSCRIBED:07/02/18834 CONFIDENTIAL, DO NOT COPY WITHOUT APPROPRIATE AUTHORIZATION. <Electronically signed in Other Vendor System> SIGNED BY: Jefferson Tubbs MD 07/02/18 0852 ICU team aware of current situation and will be comanaging. Neurology consulted , will await further recommendations. Patient is currently less than 24 hours post op, anticoagulation is a surgical contraindication at the present time. Patient also noted to have left upper extremity swelling, doppler ultrasound ordered to r/o dvt, to be done at bedside.
--- NOTE | 2018-07-02 09:37 | CT SCAN REPORT ---
EXAMINATION: CT CERVICAL SPINE WITHOUT CONTRAST CLINICAL INFORMATION: Left upper extremity weakness and left-sided facial droop. COMPARISON: None TECHNIQUE: Noncontrast multidetector CT imaging examination of the cervical spine was obtained. Axial images are presented at 0.625 mm and 2.5 mm slice thickness. DLP: 373 mGy-cm FINDINGS: No acute findings within the cervical spine. There is lack of lordotic curvature of the degenerated cervical spine. The subtle condyles, craniocervical junction and atlantodental articulation are intact. There is mild degenerative subarticular sclerosis and osseous spurring at the atlantodental articulation. No acute fractures within anterior or posterior elements. No prevertebral soft tissue swelling. At C3-C4, there is mild disc space narrowing, osteophytosis and uncovertebral joint hypertrophy resulting in [id number] bilateral neural foraminal stenosis. At C5-C6, there is moderate loss of disc space, endplate irregularity, traction osteophyte formation and uncovertebral joint hypertrophy resulting in [id number] right and moderate left neural foraminal stenosis. Small posterior disc osteophyte complex is present at C5-C6. No significant narrowing of the central spinal canal. At C6-C7, there is mild degenerative disc space narrowing and mild uncovertebral joint hypertrophy. Paraspinal soft tissues are unremarkable. Thyroid gland is normal. The visualized lung apices are normal. IMPRESSION: 1. No acute fracture or traumatic subluxation of the cervical spine. The cervical vertebra have well preserved height and alignment. 2. Multilevel discovertebral degenerative changes of the cervical spine. The disc degeneration is worst at C5-C6, and there is a small posterior disc osteophyte compresses at this level. However, no significant narrowing of the central spinal canal. 3. The uncovertebral joint hypertrophy at C3-C4 and C5-C6 causes bilateral neural foraminal stenosis at these levels.
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
--- NOTE | 2018-07-02 11:19 | Cons- Cardiology ---
General Information and HPI Consulting Request Date of Consult: 07/02/18 Requested By: Dr. Dunn Reason for Consult: CVA Source of Information: patient, family History of Present Illness: This is a pleasant 68-year-old male with a past medical history of hypertension, remote history of cardiac contusion due to trauma, prior laryngeal cancer, and a renal cell carcinoma status post nephrectomy yesterday; following surgery yesterday the patient apparently left-sided hemiparesis with facial droop and CT scan showed evidence of acute CVA; given his post surgical status TPA was contraindicated; the patient denies any associated chest pain, dyspnea, or palpitations. He denies any prior history of no neurologic events. Denies any cough or subjective fever. Denies any history of recurrent syncope. Allergies/Medications Allergies: Coded Allergies: No Known Allergies (06/30/18) Home Med List: Amlodipine Besylate (Unknown Strength) TABLET (Unknown Dose) PO DAILY BP ( Reported) Esomeprazole Magnesium (Nexium) 20 MG CAPSULE.DR 1 CAP PO DAILY GI (Reported) Metoprolol Succinate 25 MG TAB 1 TAB PO DAILY HTN (Reported) Current Medications: Current Medications Sig/Lizeth Start time Last Medication Dose Route Stop Time Status Admin Acetaminophen 1,000 MG Q6 07/01 1800 AC 07/02 IV 07/03 0000 0658 Amlodipine Besylate 2.5 MG DAILY 07/02 0900 DC 07/02 PO 0812 Aspirin 325 MG DAILY 07/02 1059 AC PO Atorvastatin Calcium 80 MG 1700 07/02 1700 AC PO Cefazolin Sodium 2 GM IQ8 07/01 1600 DC 07/02 N/A 1 UNIT IV 07/02 0029 0224 Ciprofloxacin 500 MG ONCE 07/01 0000 DC PO 07/01 2359 Dextrose/Sodium 1,000 ML Q10H 07/02 1100 AC Chloride IV Dextrose/Sodium 1,000 ML Q8H 07/01 1745 DC 07/02 Chloride IV 0222 Heparin Sodium 5,000 UNIT Q8 07/02 0600 AC 07/02 (Porcine) SC 0658 Hydromorphone HCl 50 MG Q24H PRN 07/01 1745 CAN Sodium Chloride 45 ML IV Hydromorphone HCl 50 MG Q24H PRN 07/01 1415 DC Sodium Chloride 45 ML IV Labetalol HCl 10 MG ONCE ONE 07/01 1930 DC 07/01 IV 07/01 1931 1830 Metoprolol Succinate 25 MG DAILY 07/02 09 DC 07/02 PO 0812 Morphine Sulfate 4 MG Q2 HRS NEEDED PRN 07/01 2115 AC 07/02 IV 0428 Omeprazole 40 MG DAILY AC 07/02 700 DC 07/02 PO 0657 Ondansetron HCl 4 MG Q6P PRN 07/01 1745 AC 07/02 IV 0812 Oxycodone HCl 5 MG Q4 HRS NEEDED PRN 07/01 211 AC PO Oxycodone HCl 10 MG Q4 HRS NEEDED PRN 07/01 211 AC PO Pantoprazole Sodium 40 MG DAILY 07/03 900 AC IV Promethazine HCl 12.5 MG Q6P PRN 07/01 174 AC 07/02 IV 07/08 1359 0431 Review of Systems Review of Systems: Review of systems as per HPI. The remainder of a 10 point review of systems was reviewed and was otherwise negative. 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 Home Services at Home: None Smoking Status: Former Smoker Exam & Diagnostic Data Vital Signs and I&O Vital Signs Date Time Temp Pulse Resp B/P B/P Pulse O2 O2 Flow FiO2 Mean Ox Delivery Rate 07/02 812 83 170/90 07/02 08 83 170/90 07/02 800 97.8 90 20 172/90 99 Nasal 2.0L Cannula 07/02 800 100 Nasal 2.0L Cannula 07/02 0400 99 Nasal 2.0L Cannula 07/02 0000 99 Nasal 2.0L Cannula 07/01 2100 82 14 162/84 07/01 2000 97.0 80 14 164/88 07/01 2000 99 Nasal 2.0L Cannula 07/01 183 97.7 83 18 190/100 07/01 1830 83 190/100 07/01 1830 97.7 83 20 190/100 100 Nasal 2.0L Cannula 07/01 183 100 Nasal 2.0L Cannula Intake & Output 07/02 1600 07/02 0807/02 0000 07/01 1600 07/01 800 07/01 0000 Intake Total 1106 711 Output Total 500 350 Balance 606 361 Intake, IV 1056 711 Intake, Oral 50 0 Number 0 0 Bowel Movements Output, Urine 500 350 Patient 173 lb Weight Weight Reported by Patient Measurement Method Physical Exam: General: no apparent distress. Alert. Eyes: No obvious scleral icterus. HEENT: No jugular venous distention or abnormal jugular venous pulsations. Cardiovascular: Normal intensity S1/S2. Regular Respiratory: Lungs clear to auscultation bilaterally. Abdomen: Soft, nontender with no guarding or rebound tenderness. Musculoskeletal: No clubbing or cyanosis noted Skin: warm Neurologic: Left-sided deficit noted Labs/Avinash Results: Laboratory Tests 07/02 07/01 0440 1425 Chemistry Sodium (137 - 145 mmol/L) 137 140 Potassium (3.5 - 5.1 mmol/L) 3.9 3.7 Chloride (98 - 107 mmol/L) 101 106 Carbon Dioxide (22 - 30 mmol/L) 22 23 Anion Gap (5 - 16) 14 11 BUN (9 - 20 mg/dL) 18 16 Creatinine (0.7 - 1.2 mg/dL) 1.3 H 0.9 Estimated GFR (>60 ml/min) 55 L > 60 BUN/Creatinine Ratio (7 - 25 %) 13.8 17.8 Hematology CBC w Diff MAN DIFF ORDERED NO MAN DIFF REQ WBC (4.8 - 10.8 /CUMM) 20.7 H 16.0 H RBC (4.70 - 6.10 /CUMM) 4.55 L 4.48 L Hgb (14.0 - 18.0 G/DL) 13.7 L 13.5 L Hct (42 - 52 %) 41.1 L 40.3 L MCV (80.0 - 94.0 FL) 90.4 89.9 MCH (27.0 - 31.0 PG) 30.1 30.2 MCHC (33.0 - 37.0 G/DL) 33.3 33.6 RDW (11.5 - 14.5 %) 14.2 14.0 Plt Count (130 - 400 /CUMM) 239 184 MPV (7.4 - 10.4 FL) 8.0 7.5 Gran % (42.2 - 75.2 %) 87.8 H 95.1 H Lymphocytes % (20.5 - 51.1 %) 3.2 L 3.0 L Monocytes % (1.7 - 9.3 %) 9.0 1.9 Eosinophils % (0 - 5 %) 0 0 Basophils % (0.0 - 2.0 %) 0 0 Absolute Granulocytes (1.4 - 6.5 /CUMM) 18.2 H 15.3 H Segmented Neutrophils (42.2 - 75.2 %) 88 H Absolute Lymphocytes (1.2 - 3.4 /CUMM) 0.7 L 0.5 L Lymphocytes (20.5 - 51.1 %) 4 L Monocytes (1.7 - 9.3 %) 8 Absolute Monocytes (0.10 - 0.60 /CUMM) 1.9 H 0.3 Absolute Eosinophils (0.0 - 0.7 /CUMM) 0 0 Absolute Basophils (0.0 - 0.2 /CUMM) 0 0 Platelet Estimate (ADEQUATE) ADEQUATE Polychromasia 1+ Ovalocytes FEW Other Body Source Fld Total RBCs Counted (%) 100 Diagnostic Data CXR Results No evidence for acute disease. Other Results 1. No intracranial hemorrhage. 2. Findings consistent with acute infarction involving the right lenticulostriate artery territory. Telemetry tracings are personally reviewed and shows sinus rhythm Assessment/Plan Assessment/Plan 1. Renal cell cancer status post nephrectomy 07/01/18 now with acute CVA 2. History of hypertension 3. History of remote laryngeal cancer 4. Remote history of prior cardiac contusion/cardiac arrest due to trauma CT scan showed evidence of acute CVA. Follow-up neurology recommendations; likely requires permissive hypertension in the immediate poststroke period. Obtain echocardiogram with bubble study. Obtain a 12-lead EKG. Obtain a carotid ultrasound. Initiate aspirin and statin therapy. Monitor for any evidence of atrial fibrillation on telemetry. Rico Heatno MD [facility] Consult Acknowledgment - Thank you for your consult request.
--- NOTE | 2018-07-02 12:18 | ULTRASOUND REPORT ---
EXAMINATION: LEFT UPPER EXTREMITY VENOUS ULTRASOUND CLINICAL INFORMATION: Left arm pain and swelling COMPARISON: None. TECHNIQUE: Doppler spectral analysis and color flow Doppler imaging was performed of the left upper extremity. Compression and augmentation maneuvers were performed. FINDINGS: The left internal jugular vein, subclavian vein, axillary vein, duplicated brachial veins, basilic vein, cephalic vein, and visualized forearm veins were well-identified and normal. They demonstrate normal compressibility and color fill-in. IMPRESSION: No evidence for left upper extremity deep vein thrombosis.
--- NOTE | 2018-07-02 15:52 | ULTRASOUND REPORT ---
EXAMINATION: US DUPLEX BILATERAL CAROTID CLINICAL INFORMATION: Left facial droop and left hemiparesis. COMPARISON: Carotid ultrasound 11/18/2013 TECHNIQUE: Real-time ultrasound and Doppler techniques (integrating B-mode 2D vascular images, Doppler spectral analysis and color flow Doppler imaging) were utilized to interrogate the extracranial carotid and vertebral arteries bilaterally. The degree of stenosis determined by criteria similar to NASCET. FINDINGS: Right side: 1. Mild to moderate amount of heterogeneous plaque is seen in the ECA/ICA region. 2. The common carotid artery velocity is 80 cm/s. 3. The internal carotid artery velocities are 228 cm/s systolic and 97 cm/s diastolic. 4. The external carotid artery velocity is 249 cm/s. Left side: 1. Mild amount of heterogeneous plaque is seen in the ECA/ICA region. 2. The common carotid artery velocity is 86 cm/s. 3. The internal carotid artery velocities are 70 cm/s systolic and 20 cm/s diastolic. 4. The external carotid artery velocity is 114 cm/s. ADDITIONAL FINDINGS: The vertebral arteries show antegrade flow. IMPRESSION: 1. RIGHT: Hemodynamically significant stenosis of the proximal right internal carotid artery corresponding to a 50-79% stenosis by velocity criteria. Velocity is significantly increased from November 2013 where it measured 81 cm/s within the proximal right internal carotid artery. 2. LEFT: Minimal, nonhemodynamically significant stenosis of the proximal left internal carotid artery corresponding to a 0-49% stenosis by velocity criteria. 3. Elevated velocity of 249 cm/s within the right external carotid artery consistent with stenosis.
[2018-07-02 16:00] VITALS: BP 158/70
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
[2018-07-03] VITALS: BP 146/80
[2018-07-03 05:33] LABS: ABSOLUTE EOSINOPHIL COUNT 0 /CUMM (0.0-0.7); ABSOLUTE LYMPH COUNT 0.9 /CUMM (1.2-3.4); GRANULOCYTE % 80.1 % (42.2-75.2); MEAN PLATELET VOLUME 8.1 FL (7.4-10.4); PLATELET COUNT 200 /CUMM (130-400)
[2018-07-03 05:42] LABS: ABSOLUTE BASOPHIL COUNT 0.1 /CUMM (0.0-0.2); ABSOLUTE GRANULOCYTE CT 10.3 /CUMM (1.4-6.5); ABSOLUTE MONOCYTE COUNT 1.6 /CUMM (0.10-0.60); BASOPHIL % 0.4 % (0.0-2.0); EOSINOPHIL % 0.2 % (0-5); MEAN CORPUSCULAR HGB 30.6 PG (27.0-31.0); MEAN CORPUSCULAR HGB CONC 33.8 G/DL (33.0-37.0); MEAN CORPUSCULAR VOLUME 90.3 FL (80.0-94.0); RBC DISTRIBUTION WIDTH 14.5 % (11.5-14.5); RED BLOOD CELL CT 3.56 /CUMM (4.70-6.10); WHITE BLOOD CELL COUNT 12.9 /CUMM (4.8-10.8)
[2018-07-03 05:47] LABS: HEMATOCRIT 32.2 % (42-52)
--- NOTE | 2018-07-03 05:51 | PN- Urology ---
See Addendum Subjective Subjective: feeling ok, no flatus, no bm, no n/v, bloated abd, no improvement in left extremity motor Objective Vital Signs and I&Os Vital Signs Date Time Temp Pulse Resp B/P B/P Pulse O2 O2 Flow FiO2 Mean Ox Delivery Rate 07/03 98.2 89 13 146/80 95 Room Air 07/03 0000 95 Room Air 07/02 2000 95 Room Air 07/02 1850 95 Room Air Room Air 07/02 1821 100.0 07/02 1600 96 Room Air Room Air 07/02 1600 100.4 88 16 158/70 96 Room Air Room Air 07/02 1556 Room Air Room Air 07/02 1422 98.2 07/02 1200 94 Room Air Room Air 07/02 0812 83 170/90 07/02 0812 83 170/90 07/02 0800 97.8 90 20 172/90 99 Nasal 2.0L Cannula 07/02 08 100 Nasal 2.0L Cannula Intake & Output 07/03 0000 07/02 1600 07/02 0800 07/02 0000 07/01 1600 Intake Total 1559 357 6578 711 Output Total 650 625 500 350 Balance 373 100 606 361 Intake, IV 414 894 8571 711 Intake, Oral 120 0 50 0 Number 0 0 0 Bowel Movements Output, Urine 650 625 500 350 Patient 173 lb Weight Weight Reported by Patient Measurement Method Physical Exam: gen- nad card-s1s2 pulm- ctab abd- distended, tympanic, ttp, incisions cdi w steris, quiet bs neuro- limiited motor left arm &leg, +facial droop left. no garbled speech ext- calves soft nt Results Last 48 Hours of Labs: Laboratory Tests 07/03 07/02 0505 0440 Chemistry Sodium (137 - 145 mmol/L) 136 L 137 Potassium (3.5 - 5.1 mmol/L) 4.1 3.9 Chloride (98 - 107 mmol/L) 105 101 Carbon Dioxide (22 - 30 mmol/L) 26 22 Anion Gap (5 - 16) 4 L 14 BUN (9 - 20 mg/dL) 19 18 Creatinine (0.7 - 1.2 mg/dL) 1.3 H 1.3 H Estimated GFR (>60 ml/min) 55 L 55 L BUN/Creatinine Ratio (7 - 25 %) 14.6 13.8 Magnesium (1.6 - 2.3 mg/dL) 2.2 Triglycerides (<150 mg/dL) 136 Cholesterol (< 200 MG/DL) 118 LDL Cholesterol, Calc (65 - 129 mg/dL) 52 L HDL Cholesterol (40 - 60 mg/dL) 39 L Cholesterol/HDL Ratio (0.00 - 4.88 %) 3 Hematology CBC w Diff NO MAN DIFF REQ MAN DIFF ORDERED WBC (4.8 - 10.8 /CUMM) 12.9 H 20.7 H RBC (4.70 - 6.10 /CUMM) 3.56 L 4.55 L Hgb (14.0 - 18.0 G/DL) 10.9 L 13.7 L Hct (42 - 52 %) 32.2 L 41.1 L MCV (80.0 - 94.0 FL) 90.3 90.4 MCH (27.0 - 31.0 PG) 30.6 30.1 MCHC (33.0 - 37.0 G/DL) 33.8 33.3 RDW (11.5 - 14.5 %) 14.5 14.2 Plt Count (130 - 400 /CUMM) 200 239 MPV (7.4 - 10.4 FL) 8.1 8.0 Gran % (42.2 - 75.2 %) 80.1 H 87.8 H Lymphocytes % (20.5 - 51.1 %) 6.6 L 3.2 L Monocytes % (1.7 - 9.3 %) 12.7 H 9.0 Eosinophils % (0 - 5 %) 0.2 0 Basophils % (0.0 - 2.0 %) 0.4 0 Absolute Granulocytes (1.4 - 6.5 /CUMM) 10.3 H 18.2 H Segmented Neutrophils (42.2 - 75.2 %) 88 H Absolute Lymphocytes (1.2 - 3.4 /CUMM) 0.9 L 0.7 L Lymphocytes (20.5 - 51.1 %) 4 L Monocytes (1.7 - 9.3 %) 8 Absolute Monocytes (0.10 - 0.60 /CUMM) 1.6 H 1.9 H Absolute Eosinophils (0.0 - 0.7 /CUMM) 0 0 Absolute Basophils (0.0 - 0.2 /CUMM) 0.1 0 Platelet Estimate (ADEQUATE) ADEQUATE Polychromasia 1+ Ovalocytes FEW Other Body Source Fld Total RBCs Counted (%) 100 07/31 1425 Chemistry Sodium (137 - 145 mmol/L) 140 Potassium (3.5 - 5.1 mmol/L) 3.7 Chloride (98 - 107 mmol/L) 106 Carbon Dioxide (22 - 30 mmol/L) 23 Anion Gap (5 - 16) 11 BUN (9 - 20 mg/dL) 16 Creatinine (0.7 - 1.2 mg/dL) 0.9 Estimated GFR (>60 ml/min) > 60 BUN/Creatinine Ratio (7 - 25 %) 17.8 Hematology CBC w Diff NO MAN DIFF REQ WBC (4.8 - 10.8 /CUMM) 16.0 H RBC (4.70 - 6.10 /CUMM) 4.48 L Hgb (14.0 - 18.0 G/DL) 13.5 L Hct (42 - 52 %) 40.3 L MCV (80.0 - 94.0 FL) 89.9 MCH (27.0 - 31.0 PG) 30.2 MCHC (33.0 - 37.0 G/DL) 33.6 RDW (11.5 - 14.5 %) 14.0 Plt Count (130 - 400 /CUMM) 184 MPV (7.4 - 10.4 FL) 7.5 Gran % (42.2 - 75.2 %) 95.1 H Lymphocytes % (20.5 - 51.1 %) 3.0 L Monocytes % (1.7 - 9.3 %) 1.9 Eosinophils % (0 - 5 %) 0 Basophils % (0.0 - 2.0 %) 0 Absolute Granulocytes (1.4 - 6.5 /CUMM) 15.3 H Absolute Lymphocytes (1.2 - 3.4 /CUMM) 0.5 L Absolute Monocytes (0.10 - 0.60 /CUMM) 0.3 Absolute Eosinophils (0.0 - 0.7 /CUMM) 0 Absolute Basophils (0.0 - 0.2 /CUMM) 0 Assessment/Plan Assessment/Plan A- 68M POD2 sp R lap nephrectomy, with left hemiparesis due to r CVA, now on asa and statin. P- await bowel fxn fu imaging studies swallow study, though pt should remain npo due to lack of postop bowel fxn appreciate neuro, icu input will dw dr. dye Core Measures Venous Thromboembolism VTE Risk Factors Surgery No Mechanical VTE Prophylaxis d/t N/A MechProphylax Ordered No VTE Pharm Prophylaxis d/t NA PharmProphylax ordered
--- NOTE | 2018-07-03 07:13 | PN- Resident CRCU ---
JoaoBalderas 07/03/18 0713: Subjective HPI/CRCU Issues: Acute right lenticulostriate CVA Renal cell carcinoma status post left nephrectomy on 07/01/18 History of hypertension History of remote laryngeal cancer Remote history of prior cardiac contusion/cardiac arrest due to trauma 24 Hour Events: There is no overnight event. Patient remained hemodynamically stable. He remained afebrile. There is no evidence of A. fib in satellite project site monitor. Patient is seen and examined this morning. He denied any chest pain, palpitation, nausea, vomiting, chills, fever, abdominal pain and dysuria. Patient has left upper and lower extremity weakness. He also has left upper and lower extremity rigidity but there is no sensory deficit. Patient has left mild facial droop. Objective Vital Signs & I&O Last 8 Hrs of Vitals and I&O: temp 99.1, pulse 98, r/r 14, bp 156/97, o2 sat 95 Exam General Appearance: well developed/nourished, no apparent distress, alert Head: atraumatic, normal appearance Neck: normal inspection, supple Respiratory: normal breath sounds, chest non-tender Cardiovascular: regular rate/rhythm Gastrointestinal: soft Extremities: normal inspection, normal capillary refill Cranial Nerves: normal hearing, PERRL Skin: intact Skin Temp/Moisture Exam: Warm/Dry Sepsis Skin Exam (color): Normal for Ethnicity Current Medications: Current Medications Sig/Lizeth Start time Last Medication Dose Route Stop Time Status Admin Acetaminophen 1,000 MG Q6 07/03 1200 AC 07/03 IV 07/04 1801 0646 Acetaminophen 1,000 MG Q6 07/01 1800 DC 07/02 IV 07/03 0000 2322 Aspirin 325 MG DAILY 07/02 1059 AC 07/03 PO 0944 Atorvastatin Calcium 80 MG 1700 07/02 1700 AC 07/02 PO 1821 Dextrose/Sodium 1,000 ML Q10H 07/02 1100 AC 07/03 Chloride IV 0806 Heparin Sodium 5,000 UNIT Q8 07/02 0600 AC 07/03 (Porcine) SC 0642 Morphine Sulfate 4 MG Q2 HRS NEEDED PRN 07/01 2115 AC 07/03 IV 0944 Ondansetron HCl 4 MG .STK-MED ONE 07/02 1822 DC IM 07/02 1823 Ondansetron HCl 4 MG Q6P PRN 07/01 1745 AC 07/02 IV 1832 Oxycodone HCl 5 MG Q4 HRS NEEDED PRN 07/01 2115 AC 07/02 PO 2117 Oxycodone HCl 10 MG Q4 HRS NEEDED PRN 07/01 211 PO Pantoprazole Sodium 40 MG DAILY 07/03 0900 AC 07/03 IV 0944 Promethazine HCl 12.5 MG Q6P PRN 07/01 1745 AC 07/02 IV 07/08 1359 0431 Impression/Plan Impression/Problem List Impression: Acute ischemic stroke: -Considering recent nephrectomy tPA was contraindicated, so will treat the patient in ICU conservatively. -Head end elevation -Allow permissive hypertension, consider antihypertensive if his BP >220 systolic or 120 diastolic. -Carotid doppler showed 50-79% stenosis. Neurology recommended MRA but considering patient's one kidney and having acute kidney injury, we defer it. -Cardiac echo with bubble study to see if patent fossa ovale that can cause paradoxical embolism. And look for thrombus in atria. -Continue tele monitoring to see proxysma Af.b that could cause embolism and infact. -Continue aspirin -Continue high dose lipitor. -Continue D5 normal saline. -Patient failed bed side swallow eval test. We will do formal swallow evaluation. -Keep NPO to prevent aspiration, only can take meds. -Patient failed bedside swallow eval. We will do modified barium swallow test and the patient starts having bowel movements. -Neuro consult for further recommendations History of left renal cell carcinoma status post nephrectomy: -We will follow urology recommendations. -Patient didn't have bowel movement and he didn't passed gas yet. -We will keep holding oral feeding until he started passing gas and bowel movements are present. Acute kidney injury: -Patient's CT scan abdomen and pelvis is showing right mild hydroureteronephrosis and right perinephric stranding likely to produce [address] scan on June 08. We will talk to urology if they want another imaging study to see if that calculus has been passed or its size has been increased. That is causing obstruction and creatinine level is increased. -We will monitor input and output -Avoid nephrotoxic medications -Follow-up with urology recommendations. H/O GERD: -Continue iv protonix H/O HTN: -Holding antihypertensives for permissive hypertension. DVT prophylaxis: Mechanical and s/c heparin Code status: Full code. Problem List: 1. Ischemic stroke Pain Ratin Tomorrow's Labs & Rationales: cbc/icu bundle Plan Respiratory: Respiratory dumont patient is stable, no need for supplemental oxygen Infectious Diseases: Patient is afebrile no source of infection. Cardiovascular: Patient is cardiovascularly stable but we will keep monitoring him for paroxysmal A. fib. Hematology: Patient's H&H is stable. There is drop in hemoglobin from 13.7-10.9 possibly due to dilution but we will keep following it. Metabolic: We will follow the creatinine level. We will rule out any post renal obstructive uropathy. We will follow urology recommendations. Alimentary: We will keep patient nothing by mouth for now as he doesn't have any bowel movement yet. We will defer the modified barium Swallow test until his bowel movements are back. Neurological: Patient has 1/5 left upper and lower extremity power although he is able to squeeze my fingers with his left hand and able planter flexion with left foot. There is no sensory deficit. Patient has mild left facial droop without any sensory deficit on the face. DVT/Prophylaxis: mechanical, pharmacological Code Status: Full Code [facility] 07/03/18 1314: Attending MD Review Statement Attending Sign Off Attending Cosign Statement: I have: examined this patient, reviewed [employer] [employer] EMR data, personally reviewd images, discussd w/resident/PA/FLAME ANNEALING MACHINE OPERATOR, discussed mgmt plan w/glenn, discussed mgmt plan w/CM, discussed mgmt plan w/pt, agreed w/resident/PA/FLAME ANNEALING MACHINE OPERATOR, amended to note. Other Findings: Seen and examined IMPRESSION: 1. RIGHT: Hemodynamically significant stenosis of the proximal right internal carotid artery corresponding to a 50-79% stenosis by velocity criteria. Velocity is significantly increased from November 2013 where it measured 81 cm/s within the proximal right internal carotid artery. 2. LEFT: Minimal, nonhemodynamically significant stenosis of the proximal left internal carotid artery corresponding to a 0-49% stenosis by velocity criteria. 3. Elevated velocity of 249 cm/s within the right external carotid artery consistent with stenosis. DICTATED BY: Jose Hyman MD DATE/TIME DICTATED:07/02/18 / 1536 Blood pressure has been running high at 170/90 oxygen saturation Pupils react extraocular movements intact Neck supple no JVD, no bruit normal chest decreased breath sounds otherwise unremarkable Heart S1-S2 is heard Abdominal exam tender, immediate postop No cyanosis clubbing or edema Neurological exam showed left-sided facial droop, left-sided upper extremity weakness strength 3/5 on the upper extremity, lower extremity 34/5. Plantars were upgoing in the left side. Sensory intact. Gait could not be assessed. trace edema lower ext Patient had a CT scan of the C-spine this morning showed degenerative disc disease, mild stenosis. CT of the head without contrast reviewed showed acute infarct in the right lenticulostriate artery. IMPRESSION This is a gentleman with history of hypertension, remote larngeal ca with prior surg and xrt to the larynx, remote history of trauma to the chest wall with cardiac arrest from cardiac contusion with prior fractured ribs, recent renal cell carcinoma, left nephrectomy done yesterday, no seem to have a postoperative acute right lenticulostriate artery stroke with left hemiparesis and facial droop. At this time is clinically stable. Issues include * Acute right lenticulostriate ischemic stroke in a patient with renal cell carcinoma, hypertension. He is immediate postop hence TPA was contraindicated and he will be managed medically, Pt now has worsening carotid stenosis on the right side and needs eval by vascular soon post discharge * Status post surgery for left-sided renal cell carcinoma * Hypertension * History of GERD/remote cured laryngeal ca, remote cardiac contusion history * So far in sinus rhythm RECOMMENDATION * Keep the head of bed elevated * Blood pressure should be treated for hypertension unless systolic is more than 220 or diastolic is more than 120. DC all his antihypertensives for now and we will slowly reinstitute antihypertensives in the next few days * Start proton pump inhibitor * Swallow study, PT/ OT eval and pt can eat if he passes swallow eval, then dc ivf * Continue heparin sub cut * Aspirin 325 mg daily * Lipitor 80 mg daily * Carotid ultrasound did show stenosis and call Dr Emerson for eval as pt may need CEA in the future * Further imaging of the brain including cerebral angiogram / mri should be done only if it is absolutely necessary and as he is currently not a candidate for thrombectomy etc will hold off * Cont post op mgt per surg * Please order a echocardiogram with a shunt study/ keep on tele and needs follow up eval to rule out pafib Pt is critically ill tts 37 [address] with sig inpatient pt prob
[2018-07-03 08:00] VITALS: BP 156/72
--- NOTE | 2018-07-03 08:42 | PN- Urology ---
Surgical Brief Attending Note Brief Attending Note: Pt alert and oriented x3. still weak with liimited mobility on left side. Pain well controlled. vss afebrile. pt up in chair with assist. u/o and renal function adequate-voiding trial today. Will request Dr. Dunn take pt onto med. service for expected prolonged medical needs for this hospital stay due to stroke.
--- NOTE | 2018-07-03 09:36 | PN- Cardiology ---
Subjective Subjective: Patient remains in sinus rhythm. Out of bed in a chair in a recliner. According to nursing staff no cardiac issues overnight. Objective Vital Signs and I&Os Vital Signs Date Time Temp Pulse Resp B/P B/P Pulse O2 O2 Flow FiO2 Mean Ox Delivery Rate 07/03 0400 95 Room Air 08/ 0000 98.2 89 13 146/80 95 Room Air 07/03 0000 95 Room Air 07/02 2000 95 Room Air 07/02 1850 95 Room Air Room Air 07/02 1821 100.0 07/02 1600 96 Room Air Room Air 07/02 1600 100.4 88 16 158/70 96 Room Air Room Air 07/02 1556 Room Air Room Air 07/02 1422 98.2 07/02 1200 94 Room Air Room Air Intake & Output 07/03 1600 07/03 0800 07/03 0000 07/02 1600 07/02 0800 07/02 0000 Intake Total 938 3274 928 3871 711 Output Total 350 650 625 500 350 Balance 588 373 100 606 361 Intake, IV 938 086 128 7400 711 Intake, Oral 0 120 0 50 0 Number 0 0 0 0 Bowel Movements Output, Urine 350 650 625 500 350 Patient 173 lb Weight Weight Reported by Patient Measurement Method Physical Exam: Exam patient appeared comfortable. Head normocephalic atraumatic Eyes sclera anicteric conjunctiva showed no pallor extraocular muscles were normal Neck no jugular venous distention no thyroid masses no palpable nodes Chest lungs are clear bilaterally Heart regular rhythm with a 1/6 systolic murmur Abdomen postop surgery Extremities no clubbing cyanosis or edema Neurological slight weakness in the left arm and leg. Current Medications: Current Medications Sig/Lizeth Start time Last Medication Dose Route Stop Time Status Admin Acetaminophen 1,000 MG Q6 07/03 1200 AC 08 IV 07/04 1801 0646 Acetaminophen 1,000 MG Q6 07/01 1800 DC 07/02 IV 07/03 0000 2322 Amlodipine Besylate 2.5 MG DAILY 07/02 0900 DC 07/02 PO 0812 Aspirin 325 MG DAILY 07/02 1059 AC 07/02 PO 1137 Atorvastatin Calcium 80 MG 1700 / 1700 AC 07/02 PO 1821 Dextrose/Sodium 1,000 ML Q10H 07/02 1100 AC 07/03 Chloride IV 0806 Dextrose/Sodium 1,000 ML Q8H 07/01 1745 DC 07/02 Chloride IV 0222 Heparin Sodium 5,000 UNIT Q8 07/02 0600 AC 07/03 (Porcine) SC 0642 Metoprolol Succinate 25 MG DAILY 07/02 900 DC 07/02 PO 0812 Morphine Sulfate 4 MG Q2 HRS NEEDED PRN 07/01 211 AC 07/02 IV 2317 Omeprazole 40 MG DAILY AC 07/02 07 DC 07/02 PO 0657 Ondansetron HCl 4 MG .STK-MED ONE 07/02 182 DC IM 07/02 182 Ondansetron HCl 4 MG Q6P PRN 07/01 174 AC 07/02 IV 183 Oxycodone HCl 5 MG Q4 HRS NEEDED PRN 07/01 2115 AC 07/02 PO 211 Oxycodone HCl 10 MG Q4 HRS NEEDED PRN 07/01 2115 PO Pantoprazole Sodium 40 MG DAILY 07/03 900 AC IV Promethazine HCl 12.5 MG Q6P PRN 07/01 174 AC 07/02 IV 07/08 1359 0431 Results Last 48 Hrs of Labs/Mics: Laboratory Tests 07/03/18 0505: Anion Gap 4 L, Estimated GFR 55 L, BUN/Creatinine Ratio 14.6, Magnesium 2.2, Triglycerides 136, Cholesterol 118, LDL Cholesterol, Calc 52 L, HDL Cholesterol 39 L, Cholesterol/HDL Ratio 3, CBC w Diff NO MAN DIFF REQ, RBC 3.56 L, MCV 90.3, MCH 30.6, MCHC 33.8, RDW 14.5, MPV 8.1, Gran % 80.1 H, Lymphocytes % 6.6 L, Monocytes % 12.7 H, Eosinophils % 0.2, Basophils % 0.4, Absolute Granulocytes 10.3 H, Absolute Lymphocytes 0.9 L, Absolute Monocytes 1.6 H, Absolute Eosinophils 0, Absolute Basophils 0.1 07/02/18 0440: Anion Gap 14, Estimated GFR 55 L, BUN/Creatinine Ratio 13.8, CBC w Diff MAN DIFF ORDERED, RBC 4.55 L, MCV 90.4, MCH 30.1, MCHC 33.3, RDW 14.2, MPV 8.0, Gran % 87.8 H, Lymphocytes % 3.2 L, Monocytes % 9.0, Eosinophils % 0, Basophils % 0, Absolute Granulocytes 18.2 H, Segmented Neutrophils 88 H, Absolute Lymphocytes 0.7 L, Lymphocytes 4 L, Monocytes 8, Absolute Monocytes 1.9 H, Absolute Eosinophils 0, Absolute Basophils 0, Platelet Estimate ADEQUATE , Polychromasia 1+, Ovalocytes FEW, Fld Total RBCs Counted 100 07/01/18 1425: Anion Gap 11, Estimated GFR > 60, BUN/Creatinine Ratio 17.8, CBC w Diff NO MAN DIFF REQ, RBC 4.48 L, MCV 89.9, MCH 30.2, MCHC 33.6, RDW 14.0, MPV 7.5, Gran % 95.1 H, Lymphocytes % 3.0 L, Monocytes % 1.9, Eosinophils % 0, Basophils % 0, Absolute Granulocytes 15.3 H, Absolute Lymphocytes 0.5 L, Absolute Monocytes 0.3, Absolute Eosinophils 0, Absolute Basophils 0 Microbiology 07/01 1830 UPPER RESP: Surveillance Culture - COMP 07/01 1830 GI: Surveillance Culture - COMP Assessment/Plan Assessment/Plan In summary this 68-year-old gentleman has a following problems 1. Renal cell cancer status post nephrectomy 07/01/18 now with acute CVA 2. History of hypertension 3. History of remote laryngeal cancer 4. Remote history of prior cardiac contusion/cardiac arrest due to trauma CT scan showed evidence of acute CVA. Follow-up neurology recommendations; likely requires permissive hypertension and postop.. Carotid ultrasound revealed 50-79% right internal carotid stenosis increasing from prior study. Echo study pending. EKG sinus rhythm with incomplete right bundle branch block and nonspecific T changes. Continue telemetry? Yes
--- NOTE | 2018-07-03 15:57 | PN- Neurology ---
Subjective Subjective: left sided weakness Review of Systems: no diplopia Objective Vital Signs and I&Os Vital Signs Date Time Temp Pulse Resp B/P B/P Pulse O2 O2 Flow FiO2 Mean Ox Delivery Rate 07/03 08 94 Room Air 07/03 0800 98.9 99 17 156/72 95 Room Air 07/03 0400 95 Room Air 07/03 0000 98.2 89 13 146/80 95 Room Air 07/03 0000 95 Room Air 07/02 2000 95 Room Air 07/02 1850 95 Room Air Room Air 07/02 1821 100.0 07/02 1600 96 Room Air Room Air 07/02 1600 100.4 88 16 158/70 96 Room Air Room Air 07/02 1556 Room Air Room Air Intake & Output 07/03 1600 07/03 0807/03 0000 07/02 1600 07/02 0800 07/02 0000 Intake Total 815 957 6398 725 1106 711 Output Total 500 350 650 625 500 350 Balance 400 588 373 100 606 361 Intake, IV 900 938 717 503 2883 711 Intake, Oral 0 120 0 50 0 Number 0 0 0 0 0 Bowel Movements Output, Urine 500 350 650 625 500 350 Patient 173 lb Weight Weight Reported by Patient Measurement Method alert no dysarthria EOM full mild left facial weakness weakness left upper/lower extremities, proximal>distal no sensory loss Current Medications: Current Medications Sig/Lizeth Start time Last Medication Dose Route Stop Time Status Admin Acetaminophen 1,000 MG Q6 07/03 1200 AC 07/03 IV 07/04 1801 1135 Acetaminophen 1,000 MG Q6 07/01 1800 DC 07/02 IV 07/03 0000 2322 Aspirin 325 MG DAILY 07/02 1059 AC 07/03 PO 0944 Atorvastatin Calcium 80 MG 1700 07/02 1700 AC 07/02 PO 1821 Dextrose/Sodium 1,000 ML Q10H 07/02 1100 AC 07/03 Chloride IV 0806 Heparin Sodium 5,000 UNIT Q8 07/02 0600 AC 07/03 (Porcine) SC 1334 Morphine Sulfate 4 MG Q2 HRS NEEDED PRN 07/01 2115 AC 07/03 IV 0944 Ondansetron HCl 4 MG .STK-MED ONE 07/02 182 DC IM 07/02 182 Ondansetron HCl 4 MG Q6P PRN 07/01 1745 AC 07/02 IV 1832 Oxycodone HCl 5 MG Q4 HRS NEEDED PRN 07/01 2115 AC 07/02 PO 2117 Oxycodone HCl 10 MG Q4 HRS NEEDED PRN 07/01 2115 AC PO Pantoprazole Sodium 40 MG DAILY 07/03 0900 AC 07/03 IV 0944 Promethazine HCl 12.5 MG Q6P PRN 07/01 1745 AC 07/02 IV 07/08 1359 0431 Results Last 24 Hours of Lab Results: Laboratory Tests 07/03 07/03 UNK 0505 Chemistry Sodium (137 - 145 mmol/L) Cancelled 136 L Potassium (3.5 - 5.1 mmol/L) Cancelled 4.1 Chloride (98 - 107 mmol/L) Cancelled 105 Carbon Dioxide (22 - 30 mmol/L) Cancelled 26 Anion Gap (5 - 16) Cancelled 4 L BUN (9 - 20 mg/dL) Cancelled 19 Creatinine (0.7 - 1.2 mg/dL) Cancelled 1.3 H Estimated GFR (>60 ml/min) 55 L BUN/Creatinine Ratio (7 - 25 %) 14.6 Glucose Cancelled Calcium Cancelled Phosphorus Cancelled Magnesium (1.6 - 2.3 mg/dL) Cancelled 2.2 Total Bilirubin Cancelled AST Cancelled ALT Cancelled Albumin Cancelled Triglycerides (<150 mg/dL) 136 Cholesterol (< 200 MG/DL) 118 LDL Cholesterol, Calc (65 - 129 mg/dL) 52 L HDL Cholesterol (40 - 60 mg/dL) 39 L Cholesterol/HDL Ratio (0.00 - 4.88 %) 3 Hematology CBC w Diff NO MAN DIFF REQ WBC (4.8 - 10.8 /CUMM) 12.9 H RBC (4.70 - 6.10 /CUMM) 3.56 L Hgb (14.0 - 18.0 G/DL) 10.9 L Hct (42 - 52 %) 32.2 L MCV (80.0 - 94.0 FL) 90.3 MCH (27.0 - 31.0 PG) 30.6 MCHC (33.0 - 37.0 G/DL) 33.8 RDW (11.5 - 14.5 %) 14.5 Plt Count (130 - 400 /CUMM) 200 MPV (7.4 - 10.4 FL) 8.1 Gran % (42.2 - 75.2 %) 80.1 H Lymphocytes % (20.5 - 51.1 %) 6.6 L Monocytes % (1.7 - 9.3 %) 12.7 H Eosinophils % (0 - 5 %) 0.2 Basophils % (0.0 - 2.0 %) 0.4 Absolute Granulocytes (1.4 - 6.5 /CUMM) 10.3 H Absolute Lymphocytes (1.2 - 3.4 /CUMM) 0.9 L Absolute Monocytes (0.10 - 0.60 /CUMM) 1.6 H Absolute Eosinophils (0.0 - 0.7 /CUMM) 0 Absolute Basophils (0.0 - 0.2 /CUMM) 0.1 Recent Imaging Studies: u/s carotid: RIGHT: Hemodynamically significant stenosis of the proximal right internal carotid artery corresponding to a 50-79% stenosis by velocity criteria. Velocity is significantly increased from November 2013 where it measured 81 cm/s within the proximal right internal carotid artery. Assessment/Plan Assessment: CVA, left hemiplegia carotid stenosis rt carotid, but unclear if significant no cardiac source found Plan: ASA/statin in future, dependent on level of recovery, CTA or MRA of rt carotid vessel Intensive rehab program
[2018-07-03 16:00] VITALS: BP 160/90
--- NOTE | 2018-07-03 18:00 | ECHOCARDIOGRAM REPORT ---
MARIALUISA ORTIZ Age: 68 : 1950 Gender: M Exam Date: 07/03/2018 11:42 Exam Location: [facility] Ht (in): 69 Wt (lb): 172 BSA: 1.96 BP: 154 / 83 Ordering Physician: Suki Matias MD Referring Physician: Suki Matias MD Technologist: Benjamin Cedeno [facility] Room Number: [id number] Indications: Source of embolus Rhythm: Sinus Technical Quality: Fair FINDINGS Left Ventricle Normal global left ventricular size, wall thickness, systolic function with no obvious regional wall motion abnormalities. Left ventricular ejection fraction is estimated at >65%. Abnormal relaxation filling pattern of the left ventricle for age (stage 1 diastolic dysfunction). Right Ventricle The right ventricle is normal in size and function. Right Atrium The right atrium is normal in size. Left Atrium The left atrium is normal in size. The interatrial septum is intact. There is no evidence of interatrial shunting by agitated saline contrast injection. Mitral Valve The mitral valve is normal in structure and function. There is no mitral regurgitation. Aortic Valve Diffuse thickening (sclerosis) of the aortic valve cusps without reduced excursion. No aortic stenosis. No aortic regurgitation. Tricuspid Valve The tricuspid valve is normal in structure and function. There is trace tricuspid regurgitation. Pulmonary artery systolic pressure is normal. Pulmonic Valve Structurally normal pulmonic valve. There is no pulmonic regurgitation. Pericardium Normal pericardium without effusion. No pleural effusion. Great Vessels Normal aortic root dimension. The aortic arch and great vessels are well seen and are normal. CONCLUSIONS Normal global left ventricular size, wall thickness, systolic function with no obvious regional wall motion abnormalities. Abnormal relaxation filling pattern of the left ventricle for age (stage 1 diastolic dysfunction). The left atrium is normal in size. The interatrial septum is intact. There is no evidence of interatrial shunting by agitated saline contrast injection. The mitral valve is normal in structure and function. Diffuse thickening (sclerosis) of the aortic valve cusps without reduced excursion. No aortic stenosis. Pulmonary artery systolic pressure is normal. Iain Morgan M.D. (Electronically Signed) Final Date: 03 July 2018 17:55 MEASUREMENTS (Male / Female) Normal Values 2D ECHO LV Diastolic Diameter PLAX 4.9 cm 4.2 - 5.9 / 3.9 - 5.3 cm LV Systolic Diameter PLAX 3.6 cm 2.1 - 4.0 cm LV Fractional Shortening PLAX 26.5 % 25 - 46 % LV Ejection Fraction 2D Teich 51.8 % IVS Diastolic Thickness 0.9 cm LVPW Diastolic Thickness 1.0 cm LV Relative Wall Thickness 0.4 LVOT Diameter 1.8 cm Aortic Root Diameter 2.9 cm LA Systolic Diameter LX 2.4 cm 3.0 - 4.0 / 2.7 - 3.8 cm Ascending Aorta Diameter 2.7 cm DOPPLER AV Peak Velocity 167.0 cm/s AV Peak Gradient 11.2 mmHg AV Mean Velocity 109.0 cm/s AV Mean Gradient 6.0 mmHg AV Velocity Time Integral 32.0 cm LVOT Peak Velocity 106.0 cm/s LVOT Peak Gradient 4.5 mmHg LVOT Mean Velocity 58.1 cm/s LVOT Mean Gradient 2.0 mmHg LVOT Velocity Time Integral 18.7 cm LVOT Stroke Volume 47.6 cm AV Area Cont Eq vti 1.5 cm AV Area Cont Eq pk 1.6 cm MV Peak Velocity 89.6 cm/s MV Peak Gradient 3.2 mmHg MV Mean Velocity 58.1 cm/s MV Mean Gradient 2.0 mmHg Mitral E Point Velocity 48.9 cm/s Mitral A Point Velocity 71.6 cm/s Mitral E to A Ratio 0.7 MV PHT Velocity 69.2 cm/s MV Deceleration Beckham 217.0 cm/s MV Pressure Half Time 95.7 ms MV Area PHT 2.3 cm MV Deceleration Time 408.0 ms TR Peak Velocity 227.0 cm/s TR Peak Gradient 20.6 mmHg Right Atrial Pressure 5.0 mmHg Pulmonary Artery Systolic Pressure 25.6 mmHg Right Ventricular Systolic Pressure 25.6 mmHg PV Peak Velocity 123.0 cm/s PV Peak Gradient 6.1 mmHg PV Mean Velocity 68.8 cm/s PV Mean Gradient 2.0 mmHg PV Velocity Time Integral 20.3 cm LV E' Lateral Velocity 6.0 cm/s Mitral E to LV E' Lateral Ratio 8.1 LV E' Septal Velocity 5.9 cm/s Mitral E to LV E' Septal Ratio 8.2
[2018-07-04] VITALS: BP 156/97
[2018-07-04 05:12] LABS: ABSOLUTE BASOPHIL COUNT 0 /CUMM (0.0-0.2); ABSOLUTE EOSINOPHIL COUNT 0.1 /CUMM (0.0-0.7); ABSOLUTE GRANULOCYTE CT 7.6 /CUMM (1.4-6.5); ABSOLUTE LYMPH COUNT 0.8 /CUMM (1.2-3.4); ABSOLUTE MONOCYTE COUNT 1.1 /CUMM (0.10-0.60); BASOPHIL % 0 % (0.0-2.0); EOSINOPHIL % 0.5 % (0-5); GRANULOCYTE % 79.7 % (42.2-75.2); HEMATOCRIT 27.5 % (42-52); MEAN CORPUSCULAR HGB 30.3 PG (27.0-31.0); MEAN CORPUSCULAR HGB CONC 33.5 G/DL (33.0-37.0); MEAN CORPUSCULAR VOLUME 90.6 FL (80.0-94.0); MEAN PLATELET VOLUME 7.9 FL (7.4-10.4); PLATELET COUNT 184 /CUMM (130-400); RBC DISTRIBUTION WIDTH 13.9 % (11.5-14.5); RED BLOOD CELL CT 3.03 /CUMM (4.70-6.10); WHITE BLOOD CELL COUNT 9.5 /CUMM (4.8-10.8)
--- NOTE | 2018-07-04 07:15 | PN- Resident CRCU ---
[facility] 0715: Subjective HPI/CRCU Issues: Acute right lenticulostriate CVA Renal cell carcinoma status post left nephrectomy on 07/01/18 S/p surg now with post op hematoma Dr Arnett aware and will follow History of hypertension History of remote laryngeal cancer Remote history of prior cardiac contusion/cardiac arrest due to trauma 24 Hour Events: No overnight events. Patient remained hemodynamically stable. He remained afebrile. No evidence of A. fib on residential monitor. Patient seen and examined this morning. He is out of bed in chair and getting physiotherapy. Patient denied chest pain, palpitation, vomiting, chills, fever, abdominal pain dysuria. Patient reported having nausea after getting his physiotherapy. Objective Vital Signs & I&O Last 8 Hrs of Vitals and I&O: Intake & Output 07/04 1600 Intake Total 822 Output Total 550 Balance 272 Intake, IV 822 Intake, Oral 0 Output, Stool 0 Output, Urine 550 Temperature 99.1, pulse 98, respiratory rate 14, blood pressure 156/97, oxygen saturation 95% Exam General Appearance: well developed/nourished, no apparent distress, alert, awake Head: atraumatic, normal appearance Neck: normal inspection, supple Respiratory: normal breath sounds, chest non-tender, no respiratory distress Cardiovascular: regular rate/rhythm Gastrointestinal: normal bowel sounds, soft, non-tender Extremities: normal inspection, left upper extrimity not able to move but able to squeez the finger a little bit. , left lower extrimty able to drag leg side to side a little bit. able to planter flex. Cranial Nerves: normal hearing, PERRL, facial asymmetry Skin: intact, normal color, warm/dry Skin Temp/Moisture Exam: Warm/Dry Sepsis Skin Exam (color): Normal for Ethnicity Current Medications: Current Medications Sig/Lizeth Start time Last Medication Dose Route Stop Time Status Admin Acetaminophen 1,000 MG Q6 07/03 1200 AC 07/04 IV 07/04 1801 1200 Amlodipine Besylate 2.5 MG DAILY 07/04 1149 AC PO Amlodipine Besylate 2.5 MG ONCE ONE 07/03 2245 DC 07/03 PO 07/03 2246 2317 Aspirin 325 MG DAILY 07/02 1059 AC 07/04 PO 0821 Atorvastatin Calcium 80 MG 1700 07/02 1700 AC 08/02 PO 1712 Dextrose/Sodium 1,000 ML Q13H 07/04 1215 AC Chloride IV Dextrose/Sodium 1,000 ML Q10H 07/02 1100 DC 07/04 Chloride IV 0333 Heparin Sodium 5,000 UNIT Q8 07/02 0600 AC 07/04 (Porcine) SC 0552 Methylnaltrexone 12 MG Q48 07/06 09 AC [place] SC Morphine Sulfate 4 MG Q2 HRS NEEDED PRN 07/01 2115 DC 07/03 IV 205 Ondansetron HCl 4 MG .STK-MED ONE 07/04 0339 DC IM 07/04 0340 Ondansetron HCl 4 MG Q6P PRN 07/01 1745 AC 07/04 IV 0823 Oxycodone HCl 5 MG Q4 HRS NEEDED PRN 07/01 2115 AC 07/02 PO 211 Oxycodone HCl 10 MG Q4 HRS NEEDED PRN 07/01 211 DC PO Pantoprazole Sodium 40 MG DAILY 07/03 900 AC 07/04 IV 0821 Potassium Chloride 20 MEQ ONCE ONE 07/04 0730 CAN PO 07/04 0731 Potassium Chloride 40 MEQ ONCE ONE 07/04 0730 DC 07/04 PO 07/04 0731 0821 Promethazine HCl 12.5 MG Q6P PRN 07/01 1745 AC 07/02 IV 07/08 1359 0431 Impression/Plan Impression/Problem List Impression: Acute ischemic stroke: -Considering recent nephrectomy tPA was contraindicated, so will treat the patient in ICU conservatively. -Head end elevation -Allow permissive hypertension, consider antihypertensive if his BP >220 systolic or 120 diastolic. -Carotid doppler showed 50-79% stenosis. Neurology recommended MRA but considering patient's one kidney and having acute kidney injury, we defer it. -Echocardiogram was done that showed no evidence of interatrial shunting with bubble study or thrombus. -Continue tele monitoring to see proxysma A.fib that could cause embolism and infact. -Continue aspirin -Continue high dose lipitor. -Continue D5 normal saline. -Patient will go for modified barium swallow test today. -We will follow plain CT scan abdomen/pelvis to rule out retroperitoneal hematoma or fecal impaction. -Neuro consult for further recommendations History of left renal cell carcinoma status post nephrectomy: -We will follow urology recommendations. -Patient didn't have bowel movement and he didn't passed gas yet. -We will keep holding oral feeding until he started passing gas and bowel movements are present. Acute kidney injury: -Patient had cystoscopy and right ureteric stent placement recently. Possibly his elevated creatinine level is due to low clearance considering his left nephrectomy. -We will monitor input and output -Avoid nephrotoxic medications Retroperitoneal hematoma s/p surgery and post surgery ilius: -We will keep monitoring him for bleeding (hemodynamically instability, drop in H&H). -If there is any sign of bleeding do imaging for her to pericardial bleed or expanding hematoma and stop his s/c heparin. -Patient's ilius his postsurgical and contributed by opioid use for pain. We will give him a trial of methylnaltrexone if it's opiate induced. We will reassess the patient tomorrow. Left shoulder pain: -Patient is complaining of left shoulder pain on movement as he reported that he hurt himself while lifting weight 1 day before coming for surgery. -Possibly muscle strain or ligament sprain or rotator cuff tear. -Managed conservatively at this point with pain medication. H/O GERD: -Continue iv protonix H/O HTN: -Cardiology recommended that we can resume his outpatient amlodipine. DVT prophylaxis: Mechanical and s/c heparin Code status: Full code. Problem List: 1. Ischemic stroke 2. Acute kidney injury Pain Ratin Pain Location: abdomen at surgery site Tomorrow's Labs & Rationales: cbc/icu bundle Plan Respiratory: Respiratory dumont patient is stable, no need for supplemental oxygen Infectious Diseases: Patient is afebrile no source of infection. Cardiovascular: Patient is cardiovascularly stable but we will keep monitoring him for paroxysmal A. fib. Hematology: Patient's H&H is stable. There is drop in hemoglobin from 13.7-10.9 possibly due to dilution but we will keep following it. Metabolic: We will follow the creatinine level. His creatinine level is 1.3 possibly due to low clearance as he had left nephrectomy. Alimentary: Patient will get modified barium swallow test today and we will follow the recommendation of speech therapist. Patient having ilius possibly postsurgical and opiate induced. Neurological: Left upper extremity patient has mild ability to squeeze the finger. He has more proximal weakness compared to distal. Left lower extremity patient has abated to drag his leg [id number] and he is able to plantarflex left foot. There is no sensory deficit. Patient has left mild facial droop. Dysphagia due to stroke, patient needs nectar thick diet. DVT/Prophylaxis: mechanical, pharmacological Code Status: Full Code Mona SHI,Jalen 07/04/18 1322: Attending MD Review Statement Attending Sign Off Attending Cosign Statement: I have: examined this patient, reviewed avalbl EMR data, personally reviewd images, discussd w/resident/PA/FORMULATOR COMPOUNDER, discussed mgmt plan w/glenn, discussed mgmt plan w/CM, discussed mgmt plan w/pt, agreed w/resident/PA/FORMULATOR COMPOUNDER, amended to note. Other Findings: Events and data reviewed Pt did drop his crit and ct abd reviewed with urology -hematoma due to post op issues needs close follow up Still weak Fatigued Still has ileus IMPRESSION: 1. RIGHT: Hemodynamically significant stenosis of the proximal right internal carotid artery corresponding to a 50-79% stenosis by velocity criteria. Velocity is significantly increased from November 2013 where it measured 81 cm/s within the proximal right internal carotid artery. 2. LEFT: Minimal, nonhemodynamically significant stenosis of the proximal left internal carotid artery corresponding to a 0-49% stenosis by velocity criteria. 3. Elevated velocity of 249 cm/s within the right external carotid artery consistent with stenosis. DICTATED BY: Jose Hyman MD DATE/TIME DICTATED:07/02/18 / 1536 Blood pressure has been running high Pupils react extraocular movements intact Neck supple no JVD, no bruit normal chest decreased breath sounds otherwise unremarkable Heart S1-S2 is heard Abdominal exam tender, immediate postop No cyanosis clubbing or edema Neurological exam showed left-sided facial droop, left-sided upper extremity weakness strength 3/5 on the upper extremity, lower extremity 34/5. Plantars were upgoing in the left side. Sensory intact. Gait could not be assessed. trace edema lower ext Patient had a CT scan of the C-spine this morning showed degenerative disc disease, mild stenosis. CT of the head without contrast reviewed showed acute infarct in the right lenticulostriate artery. CT abd IMPRESSION: 1. [id number] soft tissue hematoma is identified within the left renal bed, extending superiorly to the subdiaphragmatic space and inferiorly to the ipsilateral paraspinal region with minimal extension into the ipsilateral hemipelvis, and groin. The maximum dimension of the presumed soft tissue hematoma component measures 10.4 x 7.7 x 5.0 cm. Note is also made of a separate left periadrenal presumed hematoma measuring 3.6 x 2.5 cm. 2. Wnubqwib-hm-kdofa fluid/fluid level is identified with hyperdense material posteriorly within the deep part of the pelvis, measures 7.6 x 5.2 x 3.5 cm, consistent with gbqdnzjx-ae-orevg pelvic hematoma. 3. Abnormal nonspecific thickening and pericolonic stranding involving the splenic flexure and the proximal two-third of the descending colon, may represent reactive changes versus nonspecific colitis, ischemia or a combination thereof. 4. Bilateral small pleural effusions, and nonspecific bibasilar airspace disease (left greater than right), likely represent postoperative changes. 5. Moderate amount of free intraperitoneal air. IMPRESSION This is a gentleman with history of hypertension, remote larngeal ca with prior surg and xrt to the larynx, remote history of trauma to the chest wall with cardiac arrest from cardiac contusion with prior fractured ribs, recent renal cell carcinoma, left nephrectomy done yesterday, no seem to have a postoperative acute right lenticulostriate artery stroke with left hemiparesis and facial droop. At this time is clinically stable. Issues include * Acute right lenticulostriate ischemic stroke in a patient with renal cell carcinoma, hypertension. He is immediate postop hence TPA was contraindicated and he will be managed medically, Pt now has worsening carotid stenosis on the right side and needs eval by vascular soon post discharge discussed with vascular and they will follow * Status post surgery for left-sided renal cell carcinoma, now with hematoma needs follow up * Post op ileus and narcotics playing a role * Small loop of colitis in ct will follow, AG is ok and pt stable * Dysphagia due to stroke needs necter thick diet * Hypertension * History of GERD/remote cured laryngeal ca, remote cardiac contusion history * So far in sinus rhythm, echo ok, no shunt * S/p surg now with post op hematoma Dr Arnett aware and will follow RECOMMENDATION * Keep the head of bed elevated * BP stable cont all meds * Start proton pump inhibitor * Cont heparin sub cut and if bleeding is worse can dc * Aspirin ask neuro if the dose can be reduced * Lipitor 80 mg daily * Vascular surg aware and will follow * Further imaging of the brain including cerebral angiogram / mri should be done only if it is absolutely necessary and as he is currently not a candidate for thrombectomy etc will hold off * Cont post op mgt per surg Pt is critically ill tts [address] with sig inpatient pt prob Discussed with family today
--- NOTE | 2018-07-04 07:49 | PN- Urology ---
Subjective Subjective: Patient alert and oriented this morning, answers questions neuro status and exam unchanged no flatus but pos BS this morning abd distented but pain controlled Objective Vital Signs and I&Os Vital Signs Date Time Temp Pulse Resp B/P B/P Pulse O2 O2 Flow FiO2 Mean Ox Delivery Rate 07/04 0400 94 Room Air 07/04 0000 99.1 98 14 156/97 95 Room Air 07/04 0000 95 Room Air 07/03 2317 102 164/76 07/03 2000 96 Room Air 07/03 1600 98.8 89 16 160/90 95 Room Air 07/03 1600 95 Room Air 07/03 1200 95 Room Air 07/03 0800 94 Room Air 07/03 0800 98.9 99 17 156/72 95 Room Air Intake & Output 07/04 0807/04 0000 07/03 1600 07/03 0807/03 0000 07/02 1600 Intake Total 694 808 714 862 3873 725 Output Total 700 1050 500 350 650 625 Balance -6 -242 400 588 373 100 Intake, IV 694 783 900 938 903 725 Intake, Oral 0 25 0 120 0 Number 0 0 0 0 0 Bowel Movements Output, Urine 700 1050 500 350 650 625 Physical Exam: alert and oriented VSS, afebrile chest - CTA symmetric Heart- RRR without MRG Abd - rounded with ditention +BS, no flatus, generalized soreness bilateral lower extremities, no edema, calves soft neuro exam unchanged Current Medications: Current Medications Sig/Lizeth Start time Last Medication Dose Route Stop Time Status Admin Acetaminophen 1,000 MG Q6 07/03 1200 AC 07/04 IV 07/04 1801 0552 Amlodipine Besylate 2.5 MG ONCE ONE 07/03 2245 DC 07/03 PO 07/03 2246 2317 Aspirin 325 MG DAILY 07/02 1059 AC 07/03 PO 0944 Atorvastatin Calcium 80 MG 1700 07/02 1700 AC 07/03 PO 1712 Dextrose/Sodium 1,000 ML Q10H 07/02 1100 AC 07/04 Chloride IV 0333 Heparin Sodium 5,000 UNIT Q8 07/02 0600 AC 07/04 (Porcine) SC 0552 Morphine Sulfate 4 MG Q2 HRS NEEDED PRN 07/01 2115 AC 07/03 IV 205 Ondansetron HCl 4 MG Q6P PRN 07/01 1745 AC 07/04 IV 0340 Oxycodone HCl 5 MG Q4 HRS NEEDED PRN 07/01 2115 AC 07/02 PO 2117 Oxycodone HCl 10 MG Q4 HRS NEEDED PRN 07/01 2115 AC PO Pantoprazole Sodium 40 MG DAILY 07/03 0900 AC 07/03 IV 0944 Potassium Chloride 20 MEQ ONCE ONE 07/04 730 CAN PO 07/04 731 Potassium Chloride 40 MEQ ONCE ONE 07/04 730 DC PO 07/04 731 Promethazine HCl 12.5 MG Q6P PRN 07/01 1745 AC 07/02 IV 07/08 1359 0431 Results Last 48 Hours of Labs: Laboratory Tests 07/04 07/03 0410 UNK Chemistry Sodium (137 - 145 mmol/L) 137 Cancelled Potassium (3.5 - 5.1 mmol/L) 3.6 Cancelled Chloride (98 - 107 mmol/L) 108 H Cancelled Carbon Dioxide (22 - 30 mmol/L) 26 Cancelled Anion Gap (5 - 16) 3 L Cancelled BUN (9 - 20 mg/dL) 18 Cancelled Creatinine (0.7 - 1.2 mg/dL) 1.3 H Cancelled Estimated GFR (>60 ml/min) 55 L Glucose (65 - 99 mg/dL) 106 H Cancelled Calcium (8.4 - 10.2 mg/dL) 8.4 Cancelled Phosphorus (2.5 - 4.5 mg/dL) 2.0 L Cancelled Magnesium (1.6 - 2.3 mg/dL) 2.2 Cancelled Total Bilirubin (0.2 - 1.3 mg/dL) 1.2 Cancelled AST (17 - 59 U/L) 21 Cancelled ALT (21 - 72 U/L) 22 Cancelled Albumin (3.5 - 5.0 g/dL) 2.6 L Cancelled Hematology CBC w Diff NO MAN DIFF REQ WBC (4.8 - 10.8 /CUMM) 9.5 RBC (4.70 - 6.10 /CUMM) 3.03 L Hgb (14.0 - 18.0 G/DL) 9.2 L Hct (42 - 52 %) 27.5 L MCV (80.0 - 94.0 FL) 90.6 MCH (27.0 - 31.0 PG) 30.3 MCHC (33.0 - 37.0 G/DL) 33.5 RDW (11.5 - 14.5 %) 13.9 Plt Count (130 - 400 /CUMM) 184 MPV (7.4 - 10.4 FL) 7.9 Gran % (42.2 - 75.2 %) 79.7 H Lymphocytes % (20.5 - 51.1 %) 8.2 L Monocytes % (1.7 - 9.3 %) 11.6 H Eosinophils % (0 - 5 %) 0.5 Basophils % (0.0 - 2.0 %) 0 Absolute Granulocytes (1.4 - 6.5 /CUMM) 7.6 H Absolute Lymphocytes (1.2 - 3.4 /CUMM) 0.8 L Absolute Monocytes (0.10 - 0.60 /CUMM) 1.1 H Absolute Eosinophils (0.0 - 0.7 /CUMM) 0.1 Absolute Basophils (0.0 - 0.2 /CUMM) 0 08/02 0505 Chemistry Sodium (137 - 145 mmol/L) 136 L Potassium (3.5 - 5.1 mmol/L) 4.1 Chloride (98 - 107 mmol/L) 105 Carbon Dioxide (22 - 30 mmol/L) 26 Anion Gap (5 - 16) 4 L BUN (9 - 20 mg/dL) 19 Creatinine (0.7 - 1.2 mg/dL) 1.3 H Estimated GFR (>60 ml/min) 55 L BUN/Creatinine Ratio (7 - 25 %) 14.6 Magnesium (1.6 - 2.3 mg/dL) 2.2 Triglycerides (<150 mg/dL) 136 Cholesterol (< 200 MG/DL) 118 LDL Cholesterol, Calc (65 - 129 mg/dL) 52 L HDL Cholesterol (40 - 60 mg/dL) 39 L Cholesterol/HDL Ratio (0.00 - 4.88 %) 3 Hematology CBC w Diff NO MAN DIFF REQ WBC (4.8 - 10.8 /CUMM) 12.9 H RBC (4.70 - 6.10 /CUMM) 3.56 L Hgb (14.0 - 18.0 G/DL) 10.9 L Hct (42 - 52 %) 32.2 L MCV (80.0 - 94.0 FL) 90.3 MCH (27.0 - 31.0 PG) 30.6 MCHC (33.0 - 37.0 G/DL) 33.8 RDW (11.5 - 14.5 %) 14.5 Plt Count (130 - 400 /CUMM) 200 MPV (7.4 - 10.4 FL) 8.1 Gran % (42.2 - 75.2 %) 80.1 H Lymphocytes % (20.5 - 51.1 %) 6.6 L Monocytes % (1.7 - 9.3 %) 12.7 H Eosinophils % (0 - 5 %) 0.2 Basophils % (0.0 - 2.0 %) 0.4 Absolute Granulocytes (1.4 - 6.5 /CUMM) 10.3 H Absolute Lymphocytes (1.2 - 3.4 /CUMM) 0.9 L Absolute Monocytes (0.10 - 0.60 /CUMM) 1.6 H Absolute Eosinophils (0.0 - 0.7 /CUMM) 0 Absolute Basophils (0.0 - 0.2 /CUMM) 0.1 Assessment/Plan Assessment/Plan 68 y/o M POD3 sp R lap nephrectomy, with left hemiparesis due to r CVA, now on asa and statin. Plan await bowel function return - has BS no flatus, needs repeat swallow study then consider advance to [facility] CVA with left hemiplegia - appreciate neuro, icu input will dw dr. dye Core Measures Venous Thromboembolism VTE Risk Factors Surgery No Mechanical VTE Prophylaxis d/t N/A MechProphylax Ordered No VTE Pharm Prophylaxis d/t NA PharmProphylax ordered Plan: ASA/statin in future, dependent on level of recovery, CTA or MRA of rt carotid vessel Intensive rehab program NOTE ENTERED BY: Mckinley SHI,Jefferson Myers DATE/TIME ENTERED:07/03/18 / 7 Core Measures Venous Thromboembolism VTE Risk Factors Surgery No Mechanical VTE Prophylaxis d/t N/A MechProphylax Ordered No VTE Pharm Prophylaxis d/t NA PharmProphylax ordered
[2018-07-04 08:00] VITALS: BP 160/82
--- NOTE | 2018-07-04 11:34 | PN- Cardiology ---
Subjective Subjective: Resting comfortably. No new complaints today. Objective Vital Signs and I&Os Vital Signs Date Time Temp Pulse Resp B/P B/P Pulse O2 O2 Flow FiO2 Mean Ox Delivery Rate 07/04 0400 94 Room Air 07/04 0000 99.1 98 14 156/97 95 Room Air 07/04 0000 95 Room Air 07/03 2317 102 164/76 07/03 2000 96 Room Air 07/03 1600 98.8 89 16 160/90 95 Room Air 07/03 1600 95 Room Air 07/03 1200 95 Room Air Intake & Output 07/04 1600 07/04 0807/04 0000 07/03 1600 07/03 0807/03 0000 Intake Total 694 808 743 618 1680 Output Total 700 1050 500 350 650 Balance -6 -242 400 588 373 Intake, IV 694 783 900 938 903 Intake, Oral 0 25 0 120 Number 0 0 0 0 0 Bowel Movements Output, Urine 700 1050 500 350 650 Patient 172 lb Weight Physical Exam: General: no apparent distress. Alert. Eyes: No obvious scleral icterus. HEENT: No jugular venous distention or abnormal jugular venous pulsations. Cardiovascular: Normal intensity S1/S2. Regular Respiratory: Lungs clear to auscultation bilaterally. Abdomen: Soft, nontender with no guarding or rebound tenderness. Musculoskeletal: No clubbing or cyanosis noted Skin: warm Neurologic: Left-sided deficit noted Current Medications: Current Medications Sig/Lizeth Start time Last Medication Dose Route Stop Time Status Admin Acetaminophen 1,000 MG Q6 07/03 1200 AC 07/04 IV 07/04 1801 0552 Amlodipine Besylate 2.5 MG ONCE ONE 07/03 2245 DC 07/03 PO 07/03 2246 2317 Aspirin 325 MG DAILY 07/02 1059 AC 07/04 PO 0821 Atorvastatin Calcium 80 MG 1700 07/02 1700 AC 07/03 PO 1712 Dextrose/Sodium 1,000 ML Q10H 07/02 1100 AC 07/04 Chloride IV 0333 Heparin Sodium 5,000 UNIT Q8 07/02 0600 AC 07/04 (Porcine) SC 0552 Morphine Sulfate 4 MG Q2 HRS NEEDED PRN 07/01 2115 AC 07/03 IV 205 Ondansetron HCl 4 MG Q6P PRN 07/01 1745 AC 07/04 IV 0823 Oxycodone HCl 5 MG Q4 HRS NEEDED PRN 07/01 2115 AC 07/02 PO 2116 Oxycodone HCl 10 MG Q4 HRS NEEDED PRN 07/01 2115 AC PO Pantoprazole Sodium 40 MG DAILY 07/03 900 AC 07/04 IV 820 Potassium Chloride 20 MEQ ONCE ONE 07/04 730 CAN PO 07/04 731 Potassium Chloride 40 MEQ ONCE ONE 07/04 730 DC 07/04 PO 07/04 731 0821 Promethazine HCl 12.5 MG Q6P PRN 07/01 1745 AC 07/02 IV 07/08 1359 0431 Results Last 48 Hrs of Labs/Mics: Laboratory Tests 07/04/18 0410: Anion Gap 3 L, Estimated GFR 55 L, Glucose 106 H, Calcium 8.4, Phosphorus 2.0 L, Magnesium 2.2, Total Bilirubin 1.2, AST 21, ALT 22, Albumin 2.6 L, CBC w Diff NO MAN DIFF REQ, RBC 3.03 L, MCV 90.6, MCH 30.3, MCHC 33.5, RDW 13.9, MPV 7.9, Gran % 79.7 H, Lymphocytes % 8.2 L, Monocytes % 11.6 H, Eosinophils % 0.5, Basophils % 0, Absolute Granulocytes 7.6 H, Absolute Lymphocytes 0.8 L, Absolute Monocytes 1.1 H, Absolute Eosinophils 0.1, Absolute Basophils 0 07/03/18 1000: Sodium Cancelled, Potassium Cancelled, Chloride Cancelled, Carbon Dioxide Cancelled, Anion Gap Cancelled, BUN Cancelled, Creatinine Cancelled, Glucose Cancelled, Calcium Cancelled, Phosphorus Cancelled, Magnesium Cancelled, Total Bilirubin Cancelled, AST Cancelled, ALT Cancelled, Albumin Cancelled 07/03/18 0505: Anion Gap 4 L, Estimated GFR 55 L, BUN/Creatinine Ratio 14.6, Magnesium 2.2, Triglycerides 136, Cholesterol 118, LDL Cholesterol, Calc 52 L, HDL Cholesterol 39 L, Cholesterol/HDL Ratio 3, CBC w Diff NO MAN DIFF REQ, RBC 3.56 L, MCV 90.3, MCH 30.6, MCHC 33.8, RDW 14.5, MPV 8.1, Gran % 80.1 H, Lymphocytes % 6.6 L, Monocytes % 12.7 H, Eosinophils % 0.2, Basophils % 0.4, Absolute Granulocytes 10.3 H, Absolute Lymphocytes 0.9 L, Absolute Monocytes 1.6 H, Absolute Eosinophils 0, Absolute Basophils 0.1 Recent Imaging Studies: Telemetry tracings were personally reviewed and shows sinus rhythm Echocardiogram Normal global left ventricular size, wall thickness, systolic function with no obvious regional wall motion abnormalities. Abnormal relaxation filling pattern of the left ventricle for age (stage 1 diastolic dysfunction). The left atrium is normal in size. The interatrial septum is intact. There is no evidence of interatrial shunting by agitated saline contrast injection. The mitral valve is normal in structure and function. Diffuse thickening (sclerosis) of the aortic valve cusps without reduced excursion. No aortic stenosis. Pulmonary artery systolic pressure is normal. Assessment/Plan Assessment/Plan 1. Renal cell cancer status post nephrectomy 07/01/18 now with acute CVA 2. History of hypertension 3. History of remote laryngeal cancer 4. Remote history of prior cardiac contusion/cardiac arrest due to trauma 5. Carotid artery disease Patient remains hemodynamically stable. Echocardiogram with no evidence of thrombus or shunt. No evidence of atrial fibrillation on telemetry thus far. Additional imaging of carotid vessels per neurology. Can likely resume outpatient amlodipine. Would keep on telemetry for the duration of his hospitalization to monitor for silent atrial for ablation. Rico Heaton MD [facility] Continue telemetry? Yes
--- NOTE | 2018-07-04 12:26 | RADIOLOGY REPORT ---
EXAMINATION: XR MODIFIED BARIUM SWALLOW CLINICAL INFORMATION: 68-year-old male with history of recent stroke, and difficulty swallowing. COMPARISON: CT of the head done on 07/02/2018. TECHNIQUE: Modified barium swallow study was performed with speech therapist. FINDINGS: Mild residual is noted within the vallecula with all food consistencies. Delayed swallowing with spillage into the vallecula is noted. Penetration without sensation to the vocal folds is also noted. Swallowing improved with chin tuck maneuver. No evidence of any aspiration. FLUOROSCOPY TIME: 2 minutes and 9 seconds. NUMBER OF IMAGES: 16 images IMPRESSION: Abnormal modified barium swallow study. Full procedural details and findings will be dictated by the speech therapist.
--- NOTE | 2018-07-04 12:28 | Event Note ---
Event Note Event Note: S: Patient's CT scan abdomen/pelvis showed surgical site hematoma that extending from surgical site to paracolic gutter and pelvis but there is no evidence of fresh bleeding. Patient also having intraperitoneal air and thickened large bowel close to the surgical site. B: Patient has recent left nephrectomy due to left renal cell carcinoma. He is in ICU due to left hemiplegia and facial droop after the surgery. A/P: Results were discussed with Dr. Dunn and Dr. Arnett. Dr. Arnett told me that these results are expected after the surgery as he approached the left kidney for nephrectomy interperitoneal too. He is not expecting any bowel injury. He said that bowel thickening is due to gut manipulation during surgery. As patient is not passing gas yet and his bowel movements are sluggish, he wants to keep the patient nothing by mouth for 1 more day. We will reassess the patient tomorrow if he start passing gas and having clear bowel movements then we will give him sips of nectar thick liquid.
--- NOTE | 2018-07-04 12:58 | CT SCAN REPORT ---
EXAMINATION: CT ABDOMEN AND PELVIS WITHOUT CONTRAST CLINICAL INFORMATION: 68-year-old male, status post recent left-sided nephrectomy 3 days ago. Presented with constipation, sluggish bowel moment. COMPARISON: CT of the abdomen and pelvis done on 06/08/2018. TECHNIQUE: Multidetector volumetric imaging was performed from the superior aspect of the liver through the pubic symphysis. Sagittal and coronal reformatted images were obtained on the technologist's workstation. DLP: 330.87 mGy-cm. FINDINGS: Evaluation of the solid viscera is technically limited due to lack of intravenous contrast. LUNG BASES: Bibasilar airspace disease is present (left greater than right) with bilateral small pleural effusions (left greater than right), consistent with expected postoperative changes. LIVER, GALLBLADDER, AND BILIARY TREE: The liver is normal in size, shape, and attenuation. No focal hepatic lesion or biliary ductal dilatation is present. The gallbladder is unremarkable with no evidence of radiopaque gallstones, gallbladder wall thickening, or obvious pericholecystic inflammatory changes. PANCREAS: Unremarkable. SPLEEN: Unremarkable. ADRENAL GLANDS: The right adrenal gland is unremarkable. Adjacent to the left adrenal gland as in inseparable from the gland, there is a high density well-circumscribed mass identified, new since 06/08/2018, measures 3.6 x 2.5 cm with Hounsfield value of 58, most consistent with periadrenal hematoma. KIDNEYS AND URETERS: There is a punctate 1 to 2 mm nonobstructing calculus identified within the superior calyx of the right kidney. Previously identified obstructing calculus seen within the right ureterovesicular junction and associated right-sided hydroureteronephrosis show interval resolution. The left kidney is surgically absent. There is a zaszibck-pj-kkxnj soft tissue hematoma identified seen extending from the subdiaphragmatic space along the left renal, perirenal space, left paraspinal region to the level of the left hemipelvis, left groin. The maximum dimension of the presumed soft tissue hematoma measures 10.4 x 7.7 x 5.0 cm, mostly centered over the left perirenal space along the surgical bed. There is no evidence of any active hemorrhage present. There is no air-fluid level present. BLADDER: There is a Arteaga's catheter present. Large amount of air noted within the urinary bladder, likely related to the Arteaga's catheter. Previously documented right ureterovesicular junction calculus is no longer present. GASTROINTESTINAL TRACT: There is marked nonspecific thickening of the splenic flexure and the proximal two-third of the descending colon noted with significant pericolonic stranding, adjacent to the hematoma within the surgical bed. Possible differential diagnostic consideration would include reactive changes from the adjacent surgical bed versus superimposed nonspecific colitis, ischemia or a combination thereof. Clinically, lab correlation as well as follow-up imaging as appropriate is recommended for further clarification. ABDOMINAL WALL: Small amount of subcutaneous air is noted within the left lower anterior abdominal, pelvic wall. LYMPH NODES: Normal. VASCULAR: Mild atherosclerotic disease is noted within the aorta and its branches. PELVIC VISCERA: Aptxufcg-ri-fyuun fluid/fluid level is noted with hyperdense material seen posteriorly, measuring Hounsfield value of 59 within the deep part of the pelvis, measures approximately 7.6 x 5.2 x 3.5 cm at its maximum anteroposterior by transverse by craniocaudal dimension (see the morse images), consistent with zyzpboxd-se-vjlbn pelvic hematoma. The prostate is mildly enlarged, shows parenchymal calcifications. OTHER FINDINGS: Moderate amount of free intraperitoneal air is also noted. OSSEOUS STRUCTURES: No suspicious lytic or sclerotic abnormalities. IMPRESSION: 1. Vlsmbdqb-ca-adhsg soft tissue hematoma is identified within the left renal bed, extending superiorly to the subdiaphragmatic space and inferiorly to the ipsilateral paraspinal region with minimal extension into the ipsilateral hemipelvis, and groin. The maximum dimension of the presumed soft tissue hematoma component measures 10.4 x 7.7 x 5.0 cm. Note is also made of a separate left periadrenal presumed hematoma measuring 3.6 x 2.5 cm. 2. Bxglvpoj-wz-izjwi fluid/fluid level is identified with hyperdense material posteriorly within the deep part of the pelvis, measures 7.6 x 5.2 x 3.5 cm, consistent with ixuvraqm-nv-syfzb pelvic hematoma. 3. Abnormal nonspecific thickening and pericolonic stranding involving the splenic flexure and the proximal two-third of the descending colon, may represent reactive changes versus nonspecific colitis, ischemia or a combination thereof. 4. Bilateral small pleural effusions, and nonspecific bibasilar airspace disease (left greater than right), likely represent postoperative changes. 5. Moderate amount of free intraperitoneal air. This critical result was discussed with Dr. Balderas Joao at 11:57 a.m. on 07/04/2018 and it was ascertained that the content and urgency of the report was understood at the time of direct communication.
--- NOTE | 2018-07-04 14:49 | PN- Urology ---
Surgical Brief Attending Note Brief Attending Note: Pt remains in ICU hemodynamically stable: pain well controlled. No SOB/CP. Incisional pain managemable. No signficant improvement in neuro status with left side weakness-appreciated Neurology note-agree that pt will need rehab. VSS afebrile HEENT: slight droop left side perists Lungs: slight decrease in right post-likely atelectasis CV: RRR Abd: distended post-op and bowel sounds audible: no flatu/no BM/no nausea- vomitting: swallow study appreciated Ext: left side weak including left lower extremety SKin: healing well-overall intact Pathology: pending H/H drop likely due primarily to fluid shift post-op, less likely hemorrhage: CT scan seen and report appreciated=all expected post-nephrectomy findings. Overall slowly improving: will advance diet soon. Appreciate Dr. Dunn taking on pt to his service I am away this weekend-Dr. Quevedo covering me. Dont hesitate to have my service call me if you have pressing concerns.
[2018-07-04 16:00] VITALS: BP 156/94
[2018-07-05] VITALS: BP 210/90
[2018-07-05 05:18] LABS: ABSOLUTE BASOPHIL COUNT 0 /CUMM (0.0-0.2); ABSOLUTE EOSINOPHIL COUNT 0.3 /CUMM (0.0-0.7); ABSOLUTE GRANULOCYTE CT 5.4 /CUMM (1.4-6.5); ABSOLUTE LYMPH COUNT 0.9 /CUMM (1.2-3.4); ABSOLUTE MONOCYTE COUNT 0.6 /CUMM (0.10-0.60); BASOPHIL % 0.4 % (0.0-2.0); EOSINOPHIL % 3.6 % (0-5); GRANULOCYTE % 74.9 % (42.2-75.2); HEMATOCRIT 25.3 % (42-52); MEAN CORPUSCULAR HGB 30.3 PG (27.0-31.0); MEAN CORPUSCULAR HGB CONC 33.6 G/DL (33.0-37.0); MEAN CORPUSCULAR VOLUME 90.1 FL (80.0-94.0); MEAN PLATELET VOLUME 8.1 FL (7.4-10.4); PLATELET COUNT 186 /CUMM (130-400); RBC DISTRIBUTION WIDTH 14.1 % (11.5-14.5); RED BLOOD CELL CT 2.81 /CUMM (4.70-6.10); WHITE BLOOD CELL COUNT 7.2 /CUMM (4.8-10.8)
--- NOTE | 2018-07-05 05:42 | PN- Urology ---
Subjective Subjective: Patient seen and evaluated. No events overnight. He remains alert and oriented this morning. Neuro status unchanged. Having flatus this morning. [place] soft, nt, wound healing well. Objective Vital Signs and I&Os Vital Signs Date Time Temp Pulse Resp B/P B/P Pulse O2 O2 Flow FiO2 Mean Ox Delivery Rate 07/05 0400 94 Room Air 07/05 0218 82 16 200/100 08/ 0040 91 16 210/90 08/ 0000 94 Room Air / 0000 98.1 91 16 210/90 94 Room Air 07/04 1600 97.7 73 14 156/94 97 Room Air 07/04 1600 97 Room Air 07/04 1453 83 140/74 08 1200 96 Room Air 07/04 0800 97.9 92 18 160/82 95 Room Air 07/04 0800 99 Room Air Intake & Output 07/05 0800 08/04 0000 /03 1600 / 0800 / 0000 07/03 1600 Intake Total 700 822 694 808 900 Output Total 790 386 629 7936 500 Balance -90 272 -6 -242 400 Intake, IV 700 822 694 783 900 Intake, Oral 0 0 25 Number 0 0 0 0 Bowel Movements Output, Stool 0 Output, Urine 790 118 439 4709 500 Patient 172 lb Weight Physical Exam: General: 68 yo male, laying in bed comfortably, answering questions, NAD Pulm: CTA Abdomen: wounds healing well and are C/D/I, soft, NT/ND, bs+ Neuro: patient is AAOx3, normal palate elivation, tounge is midline with normal protrusion, left facial doop/asymmetry, pupils equal and reactive, normal hearing, normal eye closure, left heel seat flap stapler 3/5 strength, left biceps/triceps/ deltoids 0/5 strength, right strength fully intact, sensation intact throughout, left lower 3-4/5 strength in ileopsoas, hamstrings, quads, anterior tib, and ehs , rigth lower stregth intact Current Medications: Current Medications Sig/Lizeth Start time Last Medication Dose Route Stop Time Status Admin Acetaminophen 1,000 MG Q6 07/03 1200 DC 07/04 IV 07/04 1801 1753 Amlodipine Besylate 2.5 MG DAILY 07/04 1149 AC 07/04 PO 1453 Aspirin 81 MG DAILY 07/05 0900 AC PO Aspirin 325 MG DAILY 07/02 1059 DC 07/04 PO 0821 Atorvastatin Calcium 80 MG 1700 07/02 1700 AC 07/04 PO 1754 Dextrose/Sodium 1,000 ML Q13H 07/04 1215 AC 07/05 Chloride IV 0337 Dextrose/Sodium 1,000 ML Q10H 07/02 1100 DC 07/04 Chloride IV 0333 Heparin Sodium 5,000 UNIT Q8 07/02 0600 AC 07/04 (Porcine) SC 2201 Hydralazine HCl 10 MG ONCE ONE 07/05 0215 DC 07/05 IV 07/05 0216 0218 Hydralazine HCl 10 MG ONCE ONE 07/05 0015 DC 07/05 PO 07/05 0016 0040 Meclizine HCl 25 MG ONCE ONE 07/05 0445 CAN PO 07/05 044 Methylnaltrexone 12 MG Q48 07/06 09 AC [place] SC Morphine Sulfate 4 MG Q2 HRS NEEDED PRN 07/01 211 DC 07/03 IV 205 Ondansetron HCl 4 MG .STK-MED ONE 07/04 08 DC IM 07/04 0823 Ondansetron HCl 4 MG Q6P PRN 07/01 1745 AC 07/05 IV 0336 Oxycodone HCl 5 MG Q4 HRS NEEDED PRN 07/01 211 AC 07/04 PO 220 Oxycodone HCl 10 MG Q4 HRS NEEDED PRN 07/01 211 DC PO Pantoprazole Sodium 40 MG DAILY 07/03 09 AC 07/04 IV 0821 Potassium Chloride 20 MEQ ONCE ONE 07/04 0730 CAN PO 07/04 0731 Potassium Chloride 40 MEQ ONCE ONE 07/04 0730 DC 07/04 PO 07/04 0731 0821 Promethazine HCl 12.5 MG Q6P PRN 07/01 1745 AC 07/02 IV 07/08 1359 0431 Trimethobenzamide HCl 200 MG ONCE ONE 07/05 0500 DC 07/05 IM 07/05 0501 0457 Results Last 48 Hours of Labs: Laboratory Tests 07/05 07/04 0400 0410 Chemistry Sodium (137 - 145 mmol/L) 139 137 Potassium (3.5 - 5.1 mmol/L) 3.6 3.6 Chloride (98 - 107 mmol/L) 108 H 108 H Carbon Dioxide (22 - 30 mmol/L) 24 26 Anion Gap (5 - 16) 7 3 L BUN (9 - 20 mg/dL) 19 18 Creatinine (0.7 - 1.2 mg/dL) 1.2 1.3 H Estimated GFR (>60 ml/min) > 60 55 L Glucose (65 - 99 mg/dL) 103 H 106 H Calcium (8.4 - 10.2 mg/dL) 8.5 8.4 Phosphorus (2.5 - 4.5 mg/dL) 2.3 L 2.0 L Magnesium (1.6 - 2.3 mg/dL) 2.2 2.2 Total Bilirubin (0.2 - 1.3 mg/dL) 1.0 1.2 AST (17 - 59 U/L) 23 21 ALT (21 - 72 U/L) 27 22 Albumin (3.5 - 5.0 g/dL) 2.6 L 2.6 L Hematology CBC w Diff NO MAN DIFF REQ NO MAN DIFF REQ WBC (4.8 - 10.8 /CUMM) 7.2 9.5 RBC (4.70 - 6.10 /CUMM) 2.81 L 3.03 L Hgb (14.0 - 18.0 G/DL) 8.5 L 9.2 L Hct (42 - 52 %) 25.3 L 27.5 L MCV (80.0 - 94.0 FL) 90.1 90.6 MCH (27.0 - 31.0 PG) 30.3 30.3 MCHC (33.0 - 37.0 G/DL) 33.6 33.5 RDW (11.5 - 14.5 %) 14.1 13.9 Plt Count (130 - 400 /CUMM) 186 184 MPV (7.4 - 10.4 FL) 8.1 7.9 Gran % (42.2 - 75.2 %) 74.9 79.7 H Lymphocytes % (20.5 - 51.1 %) 12.3 L 8.2 L Monocytes % (1.7 - 9.3 %) 8.8 11.6 H Eosinophils % (0 - 5 %) 3.6 0.5 Basophils % (0.0 - 2.0 %) 0.4 0 Absolute Granulocytes (1.4 - 6.5 /CUMM) 5.4 7.6 H Absolute Lymphocytes (1.2 - 3.4 /CUMM) 0.9 L 0.8 L Absolute Monocytes (0.10 - 0.60 /CUMM) 0.6 1.1 H Absolute Eosinophils (0.0 - 0.7 /CUMM) 0.3 0.1 Absolute Basophils (0.0 - 0.2 /CUMM) 0 0 08/02 UNK Chemistry Sodium Cancelled Potassium Cancelled Chloride Cancelled Carbon Dioxide Cancelled Anion Gap Cancelled BUN Cancelled Creatinine Cancelled Glucose Cancelled Calcium Cancelled Phosphorus Cancelled Magnesium Cancelled Total Bilirubin Cancelled AST Cancelled ALT Cancelled Albumin Cancelled Assessment/Plan Assessment/Plan 68 y/o M POD 4 sp R lap nephrectomy, with left hemiparesis due to r CVA, now on asa and statin. Plan await bowel function return and passing swollow evaluation - advance to clears once he passess swollow evaluation appreciate neuro, icu input CT finding from yesterday are expected. H&H down, continue to trend will jacek dye Core Measures Venous Thromboembolism VTE Risk Factors Surgery No Mechanical VTE Prophylaxis d/t N/A MechProphylax Ordered No VTE Pharm Prophylaxis d/t NA PharmProphylax ordered
[2018-07-05 08:00] VITALS: BP 176/90
--- NOTE | 2018-07-05 08:02 | PN- CRCU ---
Subjective HPI/Critical Care Issues: The patient is awake and alert. Over the past 24 hours, the patient's blood pressure has been noted to be elevated. He was given hydralazine last evening for control. He complains of intermittent heartburn and nausea. He is complaining of pain at the site of his IV noting he is receiving potassium. He has ongoing left-sided weakness. Objective Current Medications: Current Medications Sig/Lizeth Start time Last Medication Dose Route Stop Time Status Admin Acetaminophen 1,000 MG Q6 07/03 1200 DC 07/04 IV 07/04 1801 1753 Amlodipine Besylate 2.5 MG DAILY 07/04 1149 AC 07/04 PO 1453 Aspirin 81 MG DAILY 07/05 0900 AC PO Aspirin 325 MG DAILY 07/02 1059 DC 07/04 PO 0821 Atorvastatin Calcium 80 MG 1700 07/02 1700 AC 07/04 PO 1754 Dextrose/Sodium 1,000 ML Q13H 07/04 1215 AC 07/05 Chloride IV 0337 Dextrose/Sodium 1,000 ML Q10H 07/02 1100 DC 07/04 Chloride IV 0333 Heparin Sodium 5,000 UNIT Q8 07/02 0600 AC 07/05 (Porcine) SC 0610 Hydralazine HCl 10 MG ONCE ONE 07/05 0215 DC 07/05 IV 07/05 0216 0218 Hydralazine HCl 10 MG ONCE ONE 07/05 0015 DC 07/05 PO 07/05 0016 0040 Meclizine HCl 25 MG ONCE ONE 07/05 0445 CAN PO 07/05 0446 Methylnaltrexone 12 MG Q48 07/06 09 AC [place] SC Morphine Sulfate 4 MG Q2 HRS NEEDED PRN 07/01 2115 DC 07/03 IV 205 Ondansetron HCl 4 MG .STK-MED ONE 07/04 08 DC IM 07/04 0823 Ondansetron HCl 4 MG Q6P PRN 07/01 1745 AC 07/05 IV 0336 Oxycodone HCl 5 MG Q4 HRS NEEDED PRN 07/01 2115 AC 07/04 PO 2201 Oxycodone HCl 10 MG Q4 HRS NEEDED PRN 07/01 211 DC PO Pantoprazole Sodium 40 MG DAILY 07/03 0900 AC 07/04 IV 0821 Potassium Chloride 10 MEQ Q1H 07/05 07 AC 07/05 IV 07/05 0801 0709 Promethazine HCl 12.5 MG Q6P PRN 07/01 1745 AC 07/02 IV 07/08 1359 0431 Trimethobenzamide HCl 200 MG ONCE ONE 07/05 050 DC 07/05 IM 07/05 0501 0457 Vital Signs & I&O Last 24 Hrs of Vitals and I&O: Vital Signs Date Time Temp Pulse Resp B/P B/P Pulse O2 O2 Flow FiO2 Mean Ox Delivery Rate 07/05 0400 94 Room Air 07/05 0218 82 16 200/100 07/05 0040 91 16 210/90 08 0000 94 Room Air 07/05 0000 98.1 91 16 210/90 94 Room Air 07/04 1600 97.7 73 14 156/94 97 Room Air 07/04 1600 97 Room Air 07/04 1453 83 140/74 07/04 1200 96 Room Air 07/04 0800 97.9 92 18 160/82 95 Room Air 07/04 0800 99 Room Air Intake & Output 07/05 0800 07/05 0000 07/04 1600 Intake Total 600 700 822 Output Total 700 790 550 Balance -100 -90 272 Intake, IV 600 700 822 Intake, Oral 0 Number 0 Bowel Movements Output, Stool 0 Output, Urine 700 790 550 Exam General Appearance: well developed/nourished, no apparent distress, alert, awake Head: atraumatic, normal appearance Neck: normal inspection, supple Respiratory: normal breath sounds, chest non-tender, no respiratory distress Cardiovascular: regular rate/rhythm Gastrointestinal: normal bowel sounds, soft, non-tender Extremities: normal inspection, left upper extrimity not able to move but able to squeez the finger a little bit. , left lower extrimty able to drag leg side to side a little bit. able to planter flex. Cranial Nerves: normal hearing, PERRL, facial asymmetry Skin: intact, normal color, warm/dry Skin Temp/Moisture Exam: Warm/Dry Results Last 24 Hrs of Lab Results: Laboratory Tests 07/05/18 0400: Anion Gap 7, Estimated GFR > 60, Glucose 103 H, Calcium 8.5, Phosphorus 2.3 L, Magnesium 2.2, Total Bilirubin 1.0, AST 23, ALT 27, Albumin 2.6 L, CBC w Diff NO MAN DIFF REQ, RBC 2.81 L, MCV 90.1, MCH 30.3, MCHC 33.6, RDW 14.1, MPV 8.1, Gran % 74.9, Lymphocytes % 12.3 L, Monocytes % 8.8, Eosinophils % 3.6, Basophils % 0.4, Absolute Granulocytes 5.4, Absolute Lymphocytes 0.9 L, Absolute Monocytes 0.6, Absolute Eosinophils 0.3, Absolute Basophils 0 Impression/Plan Impression/Plan Impression/Plan: 1. Acute right lenticulostriate ischemic stroke, with left-sided hemiparesis. 2. Renal cell carcinoma status post resection. 3. Postop ileus. 4. Small loop of colitis on CT scan. 5. Dysphagia with aspiration risk. 6. History of GERD/remote laryngeal cancer 7. Postoperative hematoma following nephrectomy. Recommendations: * Continue to keep the head of the bed elevated. * Monitor blood pressure closely. * Restart home metoprolol dose. * Please administer as needed hydralazine for uncontrolled hypertension. * Continue proton pump inhibitor therapy. Zantac/Tums as needed for reflux symptoms. * Monitor CBC -repeat later today at 1 PM, continue heparin drip if no evidence of bleeding. * If the patient does have evidence of worsening anemia, obtain a noncontrast CT scan of the abdomen and pelvis to rule out worsening postoperative bleeding. * Continue Lipitor 80 mg daily. * DVT prophylaxis at all times. * Continue postop management per surgery. * Slowly advance diet as tolerated, patient now with flatus and positive bowel sounds. * Continue all supportive care. Code Status: Full Code
--- NOTE | 2018-07-05 08:17 | PN- Resident CRCU ---
Subjective HPI/CRCU Issues: Acute right lenticulostriate CVA Renal cell carcinoma status post left nephrectomy on 07/01/18 S/p surg now with post op hematoma Dr Arnett aware and will follow History of hypertension History of remote laryngeal cancer Remote history of prior cardiac contusion/cardiac arrest due to trauma Retroperitoneal hematoma s/p surgery and post surgery ilius. 24 Hour Events: Patient's blood pressure remained elevated overnight. His blood pressure was 200/100. Patient received one portion of 10 mg hydralazine and 1 by mouth 10 mg hydralazine. This morning his blood pressure was 176/96. Patient seen and examined this morning. Patient was complaining of heartburn and nausea. Patient reported that he is able to pass gas since last night. He denied any chest pain, palpitation, shortness of breath, vomiting, abdominal pain, diarrhea , constipation and dysuria. His left leg power is gradually improving. His input and output in 24 hours is 2121/0 Objective Vital Signs & I&O Last 8 Hrs of Vitals and I&O: Intake & Output 07/06 1600 Intake Total 1400 Output Total 400 Balance 1000 Intake, IV 600 Intake, Oral 800 Output, Urine 400 temp 98.1, BP 174/80, pulse 84, r/r 20 Exam General Appearance: well developed/nourished, no apparent distress, alert, awake Head: atraumatic, normal appearance Ears, Nose, Throat: normal pharynx Neck: normal inspection, supple Respiratory: normal breath sounds, chest non-tender Cardiovascular: regular rate/rhythm Gastrointestinal: soft, non-tender, Sluggish bowel movement Extremities: normal inspection, normal capillary refill, no edema, Normal power of right leg. Left leg power is improving. He is able to move his leg against gravity. 3/5, He is not able to move left upper extrimity but squeezing finger. Cranial Nerves: normal hearing, PERRL, facial asymmetry Skin Temp/Moisture Exam: Warm/Dry Sepsis Skin Exam (color): Normal for Ethnicity Current Medications: Current Medications Sig/Lizeth Start time Last Medication Dose Route Stop Time Status Admin Amlodipine Besylate 2.5 MG DAILY 07/04 1149 AC 08/ PO 1055 Aspirin 81 MG DAILY 07/05 0900 AC 08/ PO 1200 Atorvastatin Calcium 80 MG 1700 07/02 1700 AC 08/05 PO 1736 Dextrose/Sodium 1,000 ML Q20H 07/05 1945 AC 07/05 Chloride IV 2010 Heparin Sodium 5,000 UNIT Q8 07/02 06 AC 07/06 (Porcine) SC 213 Methylnaltrexone 12 MG Q48H 07/05 2000 AC 07/05 [place] SC 212 Metoprolol Tartrate 12.5 MG BID 07/05 09 AC 07/06 PO 213 Ondansetron HCl 4 MG Q6P PRN 07/01 1745 AC 07/05 IV 0336 Oxycodone HCl 5 MG Q4 HRS NEEDED PRN 07/01 2115 AC 07/04 PO 2201 Pantoprazole Sodium 40 MG DAILY 07/03 09 AC 07/06 IV 1055 Potassium Chloride 40 MEQ ONCE ONE 07/06 1315 DC 07/06 PO 07/06 1316 1500 Promethazine HCl 12.5 MG Q6P PRN 07/01 1745 AC 07/06 IV 07/08 1359 1735 Impression/Plan Impression/Problem List Impression: Acute ischemic stroke: -Considering recent nephrectomy tPA was contraindicated, so will treat the patient in ICU conservatively. -Head end elevation -Carotid doppler showed 50-79% stenosis. Neurology recommended MRA but considering patient's one kidney and having acute kidney injury, we defer it. -Echocardiogram was done that showed no evidence of interatrial shunting with bubble study or thrombus. -Continue tele monitoring to see angela Barbafib that could cause embolism and infact. -Continue aspirin, dose was decreased to 81mg/d as recommended by neurology. -Continue high dose lipitor. -Continue D5 normal saline @75ml/h. -Vascular surgery is aware of the patient and they recommended CTA prior to discharge and will follow him outpatient for endarterectomy in future. -Neuro consult for further recommendations History of left renal cell carcinoma status post nephrectomy: -We will follow urology recommendations. -His surgical wound is clean and healing. Acute kidney injury:(improving) -Patient had cystoscopy and right ureteric stent placement recently. Possibly his elevated creatinine level is due to low clearance considering his left nephrectomy. -We will monitor input and output -Avoid nephrotoxic medications -His creatinine is 1.2 today. Retroperitoneal hematoma s/p surgery and post surgery ilius: -We will keep monitoring him for bleeding (hemodynamically instability, drop in H&H). -If there is any sign of bleeding do imaging for her to pericardial bleed or expanding hematoma and stop his s/c heparin. -His H&H is 8.5/25.3, we will monitor cbc. -Patient's ilius his postsurgical and contributed by opioid use for pain. Continue methylnaltrexone. -He is able to pass gas. We will start sips of clear nacter thick liquid and reevaluate him. Left shoulder pain: -Patient is complaining of left shoulder pain on movement as he reported that he hurt himself while lifting weight 1 day before coming for surgery. -Possibly muscle strain or ligament sprain or rotator cuff tear. -Managed conservatively at this point with pain medication. H/O GERD: -Continue iv protonix H/O HTN: -Cardiology recommended that we can resume his outpatient amlodipine. -We will resume his metoprolol today considering his tachycardia and elevated BP. -Hydralazine IV push as needed for elevated blood pressure. DVT prophylaxis: Mechanical and s/c heparin Code status: Full code. Problem List: 1. Ischemic stroke 2. Acute kidney injury Pain Ratin Pain Location: none Tomorrow's Labs & Rationales: cbc/icu bundle Plan Respiratory: Respiratory dum[place] patient is stable, no need for supplemental oxygen Infectious Diseases: Patient is afebrile no source of infection. Cardiovascular: Patient is cardiovascularly stable but we will keep monitoring him for paroxysmal A. fib. Try to keep him off from QTC prolonging meds considering his QTC is 502. Hematology: Patient's H&H is stable. There is drop in hemoglobin from 13.7-10.9 possibly due to dilution but we will keep following it Metabolic: We will follow the creatinine level. His creatinine level is 1.2 possibly due to low clearance as he had left nephrectomy. Alimentary: Patient will get modified barium swallow test and they recommended PUREE AND NACTER THICK. Patient having ilius possibly postsurgical and opiate induced. Patient is passing gas now we will start him on nectar thick clear liquids and we will give him sips first and then reassess him again. Neurological: Left upper extremity patient has mild ability to squeeze the finger. He has more proximal weakness compared to distal. His left leg power is improving he is able to move his leg against gravity. There is no sensory deficit. Patient has left mild facial droop. Dysphagia due to stroke, patient needs nectar thick diet. DVT/Prophylaxis: mechanical, pharmacological Code Status: Full Code
--- NOTE | 2018-07-05 15:03 | Cons- Vascular Surgery ---
General Information and HPI Consulting Request Date of Consult: 07/05/18 Requested By: Mona SHI,Jalen Rivera Reason for Consult: Symptomatic R carotid stenosis Source of Information: patient, family, old records History of Present Illness: 68 yo M with h/o HTN and prior smoking presented for L radical nephrectomy for renal mass. Post-operatively he was found to have L sided facial droop and L arm weakness. Evaluation has shown CT (+) for R sided infarct, and carotid US with elevated velocities corresponding to 50-79% stenosis by velocity criteria. I am asked to evaluate this post-operative symptomatic carotid artery stenosis. Allergies/Medications Allergies: Coded Allergies: No Known Allergies (06/30/18) Home Med List: Amlodipine Besylate (Unknown Strength) TABLET (Unknown Dose) PO DAILY BP ( Reported) Esomeprazole Magnesium (Nexium) 20 MG CAPSULE.DR 1 CAP PO DAILY GI (Reported) Metoprolol Succinate 25 MG TAB 1 TAB PO DAILY HTN (Reported) Current Medications: Current Medications Sig/Lizeth Start time Last Medication Dose Route Stop Time Status Admin Acetaminophen 1,000 MG Q6 07/03 1200 DC 07/04 IV 07/04 1801 1753 Amlodipine Besylate 2.5 MG DAILY 07/04 1149 AC 07/05 PO 1017 Aspirin 81 MG DAILY 07/05 0900 AC 07/05 PO 1017 Aspirin 325 MG DAILY 07/02 1059 DC 07/04 PO 0821 Atorvastatin Calcium 80 MG 1700 / 1700 AC 07/04 PO 1754 Calcium Carbonate 500 MG ONCE ONE 07/05 0900 DC 07/05 PO 07/05 0901 1016 Dextrose/Sodium 1,000 ML Q13H 07/04 1215 AC 07/05 Chloride IV 0337 Heparin Sodium 5,000 UNIT Q8 07/02 0600 AC 07/05 (Porcine) SC 0610 Hydralazine HCl 10 MG ONCE ONE 07/05 0215 DC 07/05 IV 07/05 0216 0218 Hydralazine HCl 10 MG ONCE ONE 07/05 0015 DC 07/05 PO 07/05 0016 0040 Meclizine HCl 25 MG ONCE ONE 07/05 0445 CAN PO 07/05 0446 Methylnaltrexone 12 MG Q48 07/06 0900 AC [place] SC Metoprolol Tartrate 12.5 MG BID 07/05 0900 AC 07/05 PO 1016 Ondansetron HCl 4 MG .STK-MED ONE 07/05 0334 DC IM 07/05 0335 Ondansetron HCl 4 MG Q6P PRN 07/01 1745 AC 07/05 IV 0336 Oxycodone HCl 5 MG Q4 HRS NEEDED PRN 07/01 2115 AC 07/04 PO 2201 Pantoprazole Sodium 40 MG DAILY 07/03 09 AC 07/05 IV 1017 Potassium Chloride 10 MEQ Q1H 07/05 07 DC 07/05 IV 07/05 0801 1016 Promethazine HCl 12.5 MG ONCE ONE 07/05 09 DC 07/05 IV 07/05 0901 0902 Promethazine HCl 12.5 MG Q6P PRN 07/01 1745 AC 07/02 IV 07/08 1359 0431 Trimethobenzamide HCl 200 MG ONCE ONE 07/05 0500 DC 07/05 IM 07/05 0501 0457 Past History Medical History Blood Transfusion Hx: No Neurological: NONE EENT: NONE Cardiovascular: hypertension Respiratory: NONE Gastrointestinal: GERD Hepatic: NONE Renal: NONE Musculoskeletal: PAIN TO L SHOULDER Psychiatric: NONE Endocrine: NONE Blood Disorders: NONE Cancer(s): NONE [employer]/Reproductive: NONE Surgical History Pertinent Surgical History: appendectomy, HERNIA REPAIR Psychosocial History Where Do You Live? Home Services at Home: None Smoking Status: Former Smoker Review of Systems Review of Systems Neurological/Psychological: Reports: unable to move upper ext, weakness. All Other Systems: Reviewed and Negative Exam & Diagnostic Data Vital Signs and I&O Vital Signs Date Time Temp Pulse Resp B/P B/P Pulse O2 O2 Flow FiO2 Mean Ox Delivery Rate 07/05 1017 96 175/80 07/05 1016 98 174/80 07/05 0800 98.4 90 20 176/90 94 Room Air 07/05 0400 94 Room Air / 0218 82 16 200/100 08/ 0040 91 16 210/90 08/04 0000 94 Room Air 08/ 0000 98.1 91 16 210/90 94 Room Air 07/04 1600 97.7 73 14 156/94 97 Room Air 07/04 1600 97 Room Air Intake & Output 07/05 1600 / 0800 / 0000 / 1600 07/04 0800 / 0000 Intake Total 600 700 822 694 808 Output Total 700 790 364 915 9154 Balance -100 -90 272 -6 -242 Intake, IV 600 700 822 694 783 Intake, Oral 0 0 25 Number 0 0 0 Bowel Movements Output, Stool 0 Output, Urine 700 790 322 435 2722 Patient 78.018 kg Weight Physical Exam General Appearance: well developed/nourished, no apparent distress, alert, awake Head: L sided facial droop noted Eyes: Bilateral: normal appearance. Neck: normal inspection Respiratory: no respiratory distress, quiet respiration Cardiovascular: regular rate/rhythm Peripheral Pulses: 2+ tibialis posterior (R), 2+ tibialis posterior (L) Rectal: deferred Extremities: limited range of motion (left) Neurologic/Psych: facial droop, motor weakness Imaging Results: Carotid US: FINDINGS: Right side: 1. Mild to moderate amount of heterogeneous plaque is seen in the ECA/ICA region. 2. The common carotid artery velocity is 80 cm/s. 3. The internal carotid artery velocities are 228 cm/s systolic and 97 cm/s diastolic. 4. The external carotid artery velocity is 249 cm/s. Left side: 1. Mild amount of heterogeneous plaque is seen in the ECA/ICA region. 2. The common carotid artery velocity is 86 cm/s. 3. The internal carotid artery velocities are 70 cm/s systolic and 20 cm/s diastolic. 4. The external carotid artery velocity is 114 cm/s. ADDITIONAL FINDINGS: The vertebral arteries show antegrade flow. Assessment/Plan Assessment/Plan 68 yo M 4 days postop from L nephrectomy with post-operative stroke and hemodynamically significant R carotid stenosis. Plan: Agree with daily aspirin and high dose statin as per Neurology I would favor CTA of neck prior to discharge for planning Recommend cardiology evaluation for CAD in the setting of former smoker with symptomatic carotid disease Will likely benefit from right carotid endarterectomy once stabilized from acute stroke and after some recovery from nephrectomy. Likely in the next several weeks. Problem List: 1. Ischemic stroke Copies To: Larry SHI,Iain Barba Consult Acknowledgment - Thank you for your consult request. Attending MD Review Statement Attending Statement Attending Statement: examined this patient, discussed with family, reviewed images
[2018-07-05 16:00] VITALS: BP 164/82
[2018-07-05 19:32] LABS: ABSOLUTE BASOPHIL COUNT 0 /CUMM (0.0-0.2); ABSOLUTE EOSINOPHIL COUNT 0.3 /CUMM (0.0-0.7); ABSOLUTE GRANULOCYTE CT 4.8 /CUMM (1.4-6.5); ABSOLUTE LYMPH COUNT 0.9 /CUMM (1.2-3.4); ABSOLUTE MONOCYTE COUNT 0.7 /CUMM (0.10-0.60); BASOPHIL % 0.5 % (0.0-2.0); EOSINOPHIL % 4.2 % (0-5); GRANULOCYTE % 71.8 % (42.2-75.2); HEMATOCRIT 26.6 % (42-52); MEAN CORPUSCULAR HGB 30.2 PG (27.0-31.0); MEAN CORPUSCULAR VOLUME 88.8 FL (80.0-94.0); MEAN PLATELET VOLUME 7.1 FL (7.4-10.4); PLATELET COUNT 230 /CUMM (130-400); RED BLOOD CELL CT 2.99 /CUMM (4.70-6.10); WHITE BLOOD CELL COUNT 6.7 /CUMM (4.8-10.8)
[2018-07-06] VITALS: BP 140/73
[2018-07-06 04:32] LABS: ABSOLUTE BASOPHIL COUNT 0 /CUMM (0.0-0.2); ABSOLUTE EOSINOPHIL COUNT 0.4 /CUMM (0.0-0.7); ABSOLUTE GRANULOCYTE CT 4.2 /CUMM (1.4-6.5); ABSOLUTE MONOCYTE COUNT 0.8 /CUMM (0.10-0.60); BASOPHIL % 0.3 % (0.0-2.0); GRANULOCYTE % 66.2 % (42.2-75.2); MEAN CORPUSCULAR HGB 30.2 PG (27.0-31.0); MEAN CORPUSCULAR HGB CONC 33.5 G/DL (33.0-37.0); MEAN CORPUSCULAR VOLUME 90.2 FL (80.0-94.0); PLATELET COUNT 231 /CUMM (130-400); RBC DISTRIBUTION WIDTH 13.9 % (11.5-14.5); RED BLOOD CELL CT 2.78 /CUMM (4.70-6.10); WHITE BLOOD CELL COUNT 6.4 /CUMM (4.8-10.8)
[2018-07-06 08:00] VITALS: BP 162/84
--- NOTE | 2018-07-06 08:15 | PN- Resident CRCU ---
Subjective HPI/CRCU Issues: Acute right lenticulostriate CVA Renal cell carcinoma status post left nephrectomy on 07/01/18 S/p surg now with post op hematoma Dr Arnett aware and will follow History of hypertension History of remote laryngeal cancer Remote history of prior cardiac contusion/cardiac arrest due to trauma Retroperitoneal hematoma s/p surgery and post surgery ilius. 24 Hour Events: Novernight acute events reported. Remained afebrile overnight. Heart rate ranged in 90s-80s. Patient was in normal sinus rhythm. Blood pressure ranged in 160s-140s/90s-80s. Oxygen saturation 97% on room air. Last 24 hours i/o 2500/ 2000 Seen and examined. Resting comfortably. Did not offer any complaints. Reports passing gas however has not had a bowel movement yet. Continues to have left sided weakness however reports improvement. He is able to ambulate. However reports that he is not able to move his left arm. Reports mild abdominal pain no right upper quadrant tenderness. Denies chest pain shortness of breath palpitation or any urinary symptoms. h/h is relatively stable. Mild hyperbilirubinemia up to 1.4. Objective Vital Signs & I&O Last 8 Hrs of Vitals and I&O: Laboratory Tests 07/06 07/05 0410 1910 Chemistry Sodium (137 - 145 mmol/L) 140 Potassium (3.5 - 5.1 mmol/L) 3.6 Chloride (98 - 107 mmol/L) 108 H Carbon Dioxide (22 - 30 mmol/L) 25 Anion Gap (5 - 16) 7 BUN (9 - 20 mg/dL) 20 Creatinine (0.7 - 1.2 mg/dL) 1.2 Estimated GFR (>60 ml/min) > 60 Glucose (65 - 99 mg/dL) 104 H Calcium (8.4 - 10.2 mg/dL) 8.8 Phosphorus (2.5 - 4.5 mg/dL) 3.1 Magnesium (1.6 - 2.3 mg/dL) 2.5 H Total Bilirubin (0.2 - 1.3 mg/dL) 1.4 H AST (17 - 59 U/L) 48 ALT (21 - 72 U/L) 40 Albumin (3.5 - 5.0 g/dL) 2.7 L Hematology CBC w Diff NO MAN DIFF REQ NO MAN DIFF REQ WBC (4.8 - 10.8 /CUMM) 6.4 6.7 RBC (4.70 - 6.10 /CUMM) 2.78 L 2.99 L Hgb (14.0 - 18.0 G/DL) 8.4 L 9.0 L Hct (42 - 52 %) 25.0 L 26.6 L MCV (80.0 - 94.0 FL) 90.2 88.8 MCH (27.0 - 31.0 PG) 30.2 30.2 MCHC (33.0 - 37.0 G/DL) 33.5 34.0 RDW (11.5 - 14.5 %) 13.9 14.0 Plt Count (130 - 400 /CUMM) 231 230 MPV (7.4 - 10.4 FL) 7.0 L 7.1 L Gran % (42.2 - 75.2 %) 66.2 71.8 Lymphocytes % (20.5 - 51.1 %) 15.0 L 13.6 L Monocytes % (1.7 - 9.3 %) 12.5 H 9.9 H Eosinophils % (0 - 5 %) 6.0 H 4.2 Basophils % (0.0 - 2.0 %) 0.3 0.5 Absolute Granulocytes (1.4 - 6.5 /CUMM) 4.2 4.8 Absolute Lymphocytes (1.2 - 3.4 /CUMM) 1.0 L 0.9 L Absolute Monocytes (0.10 - 0.60 /CUMM) 0.8 H 0.7 H Absolute Eosinophils (0.0 - 0.7 /CUMM) 0.4 0.3 Absolute Basophils (0.0 - 0.2 /CUMM) 0 0 Vital Signs Date Time Temp Pulse Resp B/P B/P Pulse O2 O2 Flow FiO2 Mean Ox Delivery Rate 07/06 1055 80 176/90 08/ 1055 88 176/90 08/05 0800 98.0 82 20 162/84 94 Room Air 08/05 0000 98.6 84 18 140/73 94 Room Air 08/04 2123 92 161/85 08/04 1600 99.5 94 20 164/82 97 Room Air Intake & Output / 1600 08/05 0800 08/05 0000 Intake Total 600 900 Output Total 710 870 Balance -110 30 Intake, IV 600 600 Intake, Oral 300 Output, Urine 710 870 Exam General Appearance: alert, awake, comfortable, FACIAL ASYMMETRY Head: atraumatic Neck: normal inspection Respiratory: normal breath sounds, chest non-tender Cardiovascular: regular rate/rhythm Gastrointestinal: soft, MILD TENDERNESS, BOWEL SOUNDS PRESENT Other Physical Findings: Extremities: normal inspection, normal capillary refill, no edema, Normal power of right leg. Left leg power is improving. He is able to move his leg against gravity. 02/03, He is not able to move left upper extrimity but squeezing finger. Current Medications: Current Medications Sig/Lizeth Start time Last Medication Dose Route Stop Time Status Admin Acetaminophen 650 MG ONCE ONE 07/05 2015 DC 07/05 PO 07/05 Amlodipine Besylate 2.5 MG DAILY 07/04 1149 AC 07/06 PO 1055 Aspirin 81 MG DAILY 07/05 09 AC 07/05 PO 1017 Atorvastatin Calcium 80 MG 1700 07/02 1700 AC 07/05 PO 1807 Dextrose/Sodium 1,000 ML Q20H 07/05 1945 AC 07/05 Chloride IV 2011 Dextrose/Sodium 1,000 ML Q13H 07/04 1215 DC 07/05 Chlor[place] IV 1822 Heparin Sodium 5,000 UNIT Q8 07/02 0600 AC 07/06 (Porcine) SC 0533 Methylnaltrexone 12 MG Q48 07/06 09 DC [place] SC Methylnaltrexone 12 MG Q48H 07/05 2000 AC 07/05 [place] SC 2122 Metoprolol Tartrate 12.5 MG BID 07/05 0900 AC 07/06 PO 1055 Ondansetron HCl 4 MG Q6P PRN 07/01 1745 AC 07/05 IV 0336 Oxycodone HCl 5 MG Q4 HRS NEEDED PRN 07/01 2115 AC 07/04 PO 2201 Pantoprazole Sodium 40 MG DAILY 07/03 09 AC 07/06 IV 1055 Promethazine HCl 12.5 MG Q6P PRN 07/01 1745 AC 07/02 IV 07/08 1359 0431 Impression/Plan Impression/Problem List Impression: The patient is 68-year-old gentleman with past medical history of hypertension, laryngeal carcinoma status post chemotherapy and surgery, history of cardiac arrest from cardiac contusion with fractured ribs. He recently had surgery for renal cell carcinoma underwent left neck colectomy and was found to have a postoperative acute right lenticulostriate artery stroke with left hemiparesis and facial droop. He is currently being treated and evaluated for following conditions #Acute ischemic stroke: Postoperative acute right lenticulostriate stroke with left hemiparesis and facial droop. TPA contraindicated in setting of recent nephrectomy. We are pursuing medical management at this point. He is currently being monitored for paroxysmal atrial fibrillation as possible because of embolus. Echocardiogram did not show evidence of interatrial shunting with bubble study. Carotid Doppler showed 50-79% R stenosis -Continue to keep head end elevated -Continue aspirin 81mg, statin Lipitor 80 mg daily. -Continue telemetry monitoring- remains in sinus rhythm -Outpatient follow-up with vascular surgery for evaluation of R carotid endarterectomy -Cerebral angiogram and MRI deffered for now as currently he is not a candidate for thrombectomy can be followed up as an outpatient or before discharge. #History of left renal cell carcinoma status post nephrectomy: -Urology followup -His surgical wound is clean and healing. #Acute kidney injury:(resolved) Patient had cystoscopy and ureteric stent placement recently. Possibly his elevated creatinine level is due to low clearance considering his left nephrectomy. -Monitor input and output -Avoid nephrotoxic medications -His creatinine is 1.2 today, stable. #Retroperitoneal hematoma s/p surgery: Postsurgical retroperitoneal hematoma. -noncontrast CT scan of the abdomen and pelvis today, to rule out further bleeding and follow-up of postoperative hematoma. -Continue to monitor H/H and monitoring for bleeding and hemodynamic instability , if there is any evidence of bleeding/expanding hematoma. Will dc subcutaneous heparin #Post surgery ileus Patient's ileus is postsurgical and contributed by opioid use for pain. Continue methylnaltrexone. -He is able to pass gas. And he has been started on clear nacter thick liquid diet, tolerating well Left shoulder pain: -Patient is complaining of left shoulder pain on movement as he reported that he hurt himself while lifting weight 1 day before coming for surgery. Possibly muscle strain or ligament sprain or rotator cuff tear. -Managed conservatively at this point with pain medication. Avoid narcotics in setting of postop ileus #H/O GERD: -Continue iv protonix #H/O HTN: -His home medication amlodipine and metoprolol have been restarted. -Hydralazine IV push as needed for elevated blood pressure. DVT prophylaxis: Mechanical and s/c heparin Code status: Full code. Problem List: 1. Acute kidney injury 2. Kidney stone 3. Renal mass 4. Ischemic stroke Pain Ratin Tomorrow's Labs & Rationales: cbc bep Plan DVT/Prophylaxis: mechanical, pharmacological Code Status: Full Code
--- NOTE | 2018-07-06 09:30 | PN- CRCU ---
Subjective HPI/Critical Care Issues: The patient is awake and alert. He reports feeling better overall. He has poor oral intake and food taste bad at the present time. He was able to ambulate this morning. He is unable to move his left arm. Of note, the patient is left- handed. Objective Current Medications: Current Medications Sig/Lizeth Start time Last Medication Dose Route Stop Time Status Admin Acetaminophen 650 MG ONCE ONE 07/05 2015 DC 07/05 PO 07/05 Amlodipine Besylate 2.5 MG DAILY 07/04 1149 AC 07/05 PO 1017 Aspirin 81 MG DAILY 07/05 09 AC 07/05 PO 1017 Atorvastatin Calcium 80 MG 1700 07/02 1700 AC 07/05 PO 1807 Dextrose/Sodium 1,000 ML Q20H 07/05 1945 AC 07/05 Chloride IV 2011 Dextrose/Sodium 1,000 ML Q13H 07/04 1215 DC 07/05 Chloride IV 1822 Heparin Sodium 5,000 UNIT Q8 07/02 06 AC 07/06 (Porcine) SC 0533 Methylnaltrexone 12 MG Q48 07/06 09 DC [place] SC Methylnaltrexone 12 MG Q48H 07/05 2000 AC 07/05 [place] SC 2122 Metoprolol Tartrate 12.5 MG BID 07/05 09 AC 07/05 PO 2123 Ondansetron HCl 4 MG Q6P PRN 07/01 1745 AC 07/05 IV 0336 Oxycodone HCl 5 MG Q4 HRS NEEDED PRN 07/01 2115 AC 07/04 PO 2201 Pantoprazole Sodium 40 MG DAILY 07/03 09 AC 07/05 IV 1017 Promethazine HCl 12.5 MG Q6P PRN 07/01 1745 AC 07/02 IV 07/08 1359 0431 Vital Signs & I&O Last 24 Hrs of Vitals and I&O: Vital Signs Date Time Temp Pulse Resp B/P B/P Pulse O2 O2 Flow FiO2 Mean Ox Delivery Rate 07/06 0000 98.6 84 18 140/73 94 Room Air 07/05 2123 92 161/85 07/05 1600 99.5 94 20 164/82 97 Room Air 07/05 1017 96 175/80 / 1016 98 174/80 Intake & Output 07/06 1600 07/06 0807/06 0000 Intake Total 600 900 Output Total 710 870 Balance -110 30 Intake, IV 600 600 Intake, Oral 300 Output, Urine 710 870 Exam General Appearance: well developed/nourished, no apparent distress, alert, awake Head: atraumatic, normal appearance Neck: normal inspection, supple Respiratory: normal breath sounds, chest non-tender, no respiratory distress Cardiovascular: regular rate/rhythm Gastrointestinal: normal bowel sounds, soft, non-tender Extremities: left upper extrimity not able to move but able to squeez Cranial Nerves: PERRL, left facial droop Skin: intact, normal color, warm/dry Skin Temp/Moisture Exam: Warm/Dry Results Last 24 Hrs of Lab Results: Laboratory Tests 07/06/18 0410: Anion Gap 7, Estimated GFR > 60, Glucose 104 H, Calcium 8.8, Phosphorus 3.1, Magnesium 2.5 H, Total Bilirubin 1.4 H, AST 48, ALT 40, Albumin 2.7 L, CBC w Diff NO MAN DIFF REQ, RBC 2.78 L, MCV 90.2, MCH 30.2, MCHC 33.5, RDW 13.9, MPV 7.0 L, Gran % 66.2, Lymphocytes % 15.0 L, Monocytes % 12.5 H, Eosinophils % 6.0 H, Basophils % 0.3, Absolute Granulocytes 4.2, Absolute Lymphocytes 1.0 L, Absolute Monocytes 0.8 H, Absolute Eosinophils 0.4, Absolute Basophils 0 07/05/18 1910: CBC w Diff NO MAN DIFF REQ, RBC 2.99 L, MCV 88.8, MCH 30.2, MCHC 34.0, RDW 14.0 , MPV 7.1 L, Gran % 71.8, Lymphocytes % 13.6 L, Monocytes % 9.9 H, Eosinophils % 4.2, Basophils % 0.5, Absolute Granulocytes 4.8, Absolute Lymphocytes 0.9 L, Absolute Monocytes 0.7 H, Absolute Eosinophils 0.3, Absolute Basophils 0 Impression/Plan Impression/Plan Impression/Plan: 1. Acute right lenticulostriate ischemic stroke, with dense left-sided hemiparesis. Please note the patient is left handed. 2. Renal cell carcinoma status post resection. 3. Postop ileus. 4. Small loop of colitis on CT scan. 5. Dysphagia with aspiration risk. 6. History of GERD/remote laryngeal cancer 7. Postoperative hematoma following nephrectomy. 8. Progressively worsening anemia, rule out increasing postoperative hematoma. Recommendations: * Check a noncontrast CT scan of the abdomen and pelvis today, to rule out further bleeding and follow-up of postoperative hematoma. * Continue to monitor blood pressure closely and adjust medication for better control. * Monitor CBC -repeat later today at 1 PM, continue heparin drip if no evidence of bleeding. * If the patient does have evidence of worsening anemia, obtain a noncontrast CT scan of the abdomen and pelvis to rule out worsening postoperative bleeding. * Continue Lipitor 80 mg daily. * DVT prophylaxis at all times. * Continue postop management per surgery. * OT/PT, ambulate as tolerated. * Advance diet if able. * Continue all supportive care. Code Status: Full Code
--- NOTE | 2018-07-06 14:01 | PN- Urology ---
Subjective Subjective: remains in icu. destin full liquids, low appetite- doesnt like the food . no n/v. passing flatus, no bm. oob to chair, walking w assistance. feels left leg is getting stronger. "my (left) arm is useless" Objective Vital Signs and I&Os Vital Signs Date Time Temp Pulse Resp B/P B/P Pulse O2 O2 Flow FiO2 Mean Ox Delivery Rate 07/06 1055 80 176/90 07/06 1055 88 176/90 07/06 08 98.0 82 20 162/84 94 Room Air 07/06 0000 98.6 84 18 140/73 94 Room Air 07/05 2123 92 161/85 07/05 1600 99.5 94 20 164/82 97 Room Air Intake & Output 07/06 0000 07/05 1600 07/05 0000 Intake Total 600 900 600 700 Output Total 710 870 700 790 Balance -110 30 -100 -90 Intake, IV 600 600 600 700 Intake, Oral 300 Number 0 Bowel Movements Output, Urine 710 870 700 790 Physical Exam: gen- nad card-rrr pulm- no audible wheeze abd- incisions dressed w steris- dry, intact. soft, nd. ext- calves soft nt neuro- l facial droop. 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 left leg able to lift off bed, gross foot/ankle motor intact Assessment/Plan Assessment/Plan A- POD 5 sp R lap nephrectomy, with left hemiparesis due to r CVA, with CT pending to eval for postop hematoma P: await bowel function return cont fulls, advance per bowel fxn and swallow eval appreciate neuro, icu input fu ct, watch cbc will dw dr. dye Core Measures Venous Thromboembolism VTE Risk Factors Surgery No Mechanical VTE Prophylaxis d/t N/A MechProphylax Ordered No VTE Pharm Prophylaxis d/t NA PharmProphylax ordered
--- NOTE | 2018-07-06 14:15 | CT SCAN REPORT ---
EXAMINATION: CT ABDOMEN AND PELVIS WITHOUT CONTRAST CLINICAL INFORMATION: Follow-up retroperitoneal hematoma. Decreased hematocrit status post recent left nephrectomy. COMPARISON: 07/04/2018. TECHNIQUE: Multidetector volumetric imaging was performed from the superior aspect of the liver through the pubic symphysis. Sagittal and coronal reformatted images were obtained on the technologist's workstation. DLP: 362 mGy-cm FINDINGS: LUNG BASES: Mild atelectasis in dependent aspect of right lower lobe. Small left pleural effusion with compressive atelectasis of left lower lobe, similar in appearance compared to 07/04/2018. LIVER, GALLBLADDER, AND BILIARY TREE: The liver has normal size, shape, and attenuation. No focal hepatic lesion. The gallbladder is without evidence of radiopaque gallstones, wall thickening, or pericholecystic inflammatory changes. No intrahepatic or extrahepatic bile duct dilatation. PANCREAS: Unremarkable. SPLEEN: Unremarkable. ADRENAL GLANDS: Unremarkable. KIDNEYS AND URETERS: The right kidney is unremarkable. The left kidney is surgically absent. The 2.5 x 4 cm hyperdense hematoma posterior to the left adrenal gland is unchanged in size compared to 07/04/2018. The irregular shaped hyperdense hematoma of the left nephrectomy bed extending from level of the the spleen, superiorly, and along the surface of the psoas muscle to the proximal pelvis is unchanged. BLADDER: The urinary bladder is decompressed by a Arteaga catheter. BOWEL AND PERITONEUM: Again noted is postoperative pneumoperitoneum. The hemoperitoneum within the pelvis has decreased compared to 07/04/2018. Bowel loops are normal in caliber. Pancolonic diverticulosis. ABDOMINAL WALL: Edema within subcutaneous tissues of the abdominal wall. No hematoma along the midline wound. Persistent postoperative soft tissue gas along the left anterior abdominal wall. Mild protrusion of fat into the left inguinal canal. LYMPH NODES: No pathologic sized lymph nodes in the abdomen or pelvis. No inguinal lymphadenopathy. VASCULAR: Mild atherosclerosis of the abdominal aorta without aneurysm. PELVIC: There is central calcification of the prostate gland. No pelvic mass. MUSCULOSKELETAL: No aggressive osseous lesions. Facet arthropathy of L5-S1. IMPRESSION: 1. Status post recent left nephrectomy. The left retroperitoneal hematoma is unchanged compared to 07/04/2018. No new hemorrhage. 2. The hemoperitoneum within the pelvis has decreased compared to 07/04/2018. 3. Postoperative pneumoperitoneum. 4. Pancolonic diverticulosis. 5. Persistent small left pleural effusion with compressive atelectasis of left lower lobe.
[2018-07-06 14:27] LABS: ABSOLUTE BASOPHIL COUNT 0 /CUMM (0.0-0.2); ABSOLUTE EOSINOPHIL COUNT 0.3 /CUMM (0.0-0.7); ABSOLUTE GRANULOCYTE CT 4.9 /CUMM (1.4-6.5); ABSOLUTE LYMPH COUNT 0.7 /CUMM (1.2-3.4); ABSOLUTE MONOCYTE COUNT 0.8 /CUMM (0.10-0.60); BASOPHIL % 0.2 % (0.0-2.0); EOSINOPHIL % 4.9 % (0-5); GRANULOCYTE % 72.3 % (42.2-75.2); HEMATOCRIT 26.1 % (42-52); MEAN CORPUSCULAR HGB 30.3 PG (27.0-31.0); MEAN CORPUSCULAR HGB CONC 34.1 G/DL (33.0-37.0); MEAN CORPUSCULAR VOLUME 88.8 FL (80.0-94.0); MEAN PLATELET VOLUME 6.9 FL (7.4-10.4); PLATELET COUNT 254 /CUMM (130-400); RBC DISTRIBUTION WIDTH 13.9 % (11.5-14.5); RED BLOOD CELL CT 2.94 /CUMM (4.70-6.10); WHITE BLOOD CELL COUNT 6.8 /CUMM (4.8-10.8)
[2018-07-06 16:00] VITALS: BP 165/80
[2018-07-07] VITALS: BP 167/81
[2018-07-07 05:04] LABS: ABSOLUTE BASOPHIL COUNT 0 /CUMM (0.0-0.2); ABSOLUTE EOSINOPHIL COUNT 0.4 /CUMM (0.0-0.7); ABSOLUTE LYMPH COUNT 0.9 /CUMM (1.2-3.4); BASOPHIL % 0.5 % (0.0-2.0); GRANULOCYTE % 68.8 % (42.2-75.2); HEMATOCRIT 26.9 % (42-52); MEAN CORPUSCULAR HGB 30.4 PG (27.0-31.0); MEAN CORPUSCULAR HGB CONC 33.8 G/DL (33.0-37.0); MEAN CORPUSCULAR VOLUME 90.1 FL (80.0-94.0); MEAN PLATELET VOLUME 7.7 FL (7.4-10.4); PLATELET COUNT 252 /CUMM (130-400); RBC DISTRIBUTION WIDTH 13.7 % (11.5-14.5); RED BLOOD CELL CT 2.99 /CUMM (4.70-6.10); WHITE BLOOD CELL COUNT 7.2 /CUMM (4.8-10.8)
--- NOTE | 2018-07-07 06:53 | PN- Resident CRCU ---
[place] 07/07/18 0653: Subjective HPI/CRCU Issues: Acute right lenticulostriate CVA Renal cell carcinoma status post left nephrectomy on 07/01/18 S/p surg now with post op hematoma Dr Arnett aware and will follow History of hypertension History of remote laryngeal cancer Remote history of prior cardiac contusion/cardiac arrest due to trauma Retroperitoneal hematoma s/p surgery (stable) Post surgery ilius (improving). Transaminitis 24 Hour Events: No overnight events. Patient remained afebrile. There is no evidence of arrhythmia on telemetry monitoring. Seen and examined this morning. Patient was lying in bed comfortably with elevated head site. He denied chest pain, palpitation, nausea, vomiting, chills, fever, abdominal pain and dysuria. He is able to tolerate nectar thick liquid diet. Patient is passing gas but didn't have bowel movement yet. Patient is getting physiotherapy and his left leg power has been improved. His left arm is still awake but he is able to squeeze the finger. We will downgrade the patient tele floor. Objective Vital Signs & I&O Last 8 Hrs of Vitals and I&O: Intake & Output 07/07 1600 Intake Total 315 Output Total 525 Balance -210 Intake, IV 75 Intake, Oral 240 Number 0 Bowel Movements Output, Urine 525 temp 99.4, pulse 78, BP 167/81, o2 SAT 95% Laboratory Tests 07/07/18 0400: Anion Gap 5, Estimated GFR > 60, Glucose 108 H, Calcium 8.9, Phosphorus 3.5, Magnesium 2.1, Total Bilirubin 1.4 H, AST 107 H, ALT 90 H, Albumin 2.8 L, CBC w Diff NO MAN DIFF REQ, RBC 2.99 L, MCV 90.1, MCH 30.4, MCHC 33.8, RDW 13.7 , MPV 7.7, Gran % 68.8, Lymphocytes % 12.0 L, Monocytes % 13.7 H, Eosinophils % 5.0, Basophils % 0.5, Absolute Granulocytes 5.0, Absolute Lymphocytes 0.9 L, Absolute Monocytes 1.0 H, Absolute Eosinophils 0.4, Absolute Basophils 0 Vital Signs Date Time Temp Pulse Resp B/P B/P Pulse O2 O2 Flow FiO2 Mean Ox Delivery Rate 07/07 1232 83 149/83 07/07 1010 92 167/82 07/07 1010 94 167/82 / 0800 96 Room Air / 0800 98.6 92 19 172/90 96 Room Air / 0000 99.4 78 18 167/81 95 Room Air / 2131 85 165/93 08/ 1600 98.9 88 18 165/80 97 Room Air Intake & Output 07/07 1600 08/ 0800 08/ 0000 Intake Total 315 650 940 Output Total 525 830 690 Balance -210 -180 250 Intake, IV 75 600 600 Intake, Oral 240 50 340 Number 0 Bowel Movements Output, Urine 525 830 690 Exam General Appearance: well developed/nourished, no apparent distress, alert, awake Head: atraumatic Neck: normal inspection, supple Respiratory: chest non-tender, B/L DECREASED BREATH SOUNDS Cardiovascular: regular rate/rhythm Gastrointestinal: normal bowel sounds, soft, non-tender Extremities: normal inspection, Left leg power has been improved and able to move against gravity and little bit against resistance., Left arm still weak but able to sqeez finger Cranial Nerves: normal hearing, PERRL, facial asymmetry Skin: intact Skin Temp/Moisture Exam: Warm/Dry Sepsis Skin Exam (color): Normal for Ethnicity Current Medications: Current Medications Sig/Lizeth Start time Last Medication Dose Route Stop Time Status Admin Amlodipine Besylate 5 MG DAILY 07/08 09 AC PO Amlodipine Besylate 2.5 MG ONCE ONE 07/07 1130 DC 07/07 PO 07/07 1131 1232 Amlodipine Besylate 2.5 MG DAILY 07/04 1149 DC 07/07 PO 1010 Aspirin 81 MG DAILY 07/05 09 AC 07/07 PO 1010 Atorvastatin Calcium 80 MG 1700 07/02 1700 AC 07/06 PO 1736 Dextrose/Sodium 1,000 ML Q20H / 1945 DC 07/05 Chloride IV 2011 Heparin Sodium 5,000 UNIT Q8 07/02 06 AC 07/07 (Porcine) SC 1425 Methylnaltrexone 12 MG Q48H 07/05 2000 AC 07/05 [place] SC 2122 Metoprolol Tartrate 12.5 MG BID 07/05 0900 AC 07/07 PO 1010 Omeprazole 40 MG DAILY AC 07/07 0800 AC 07/07 PO 1010 Ondansetron HCl 4 MG Q6P PRN 07/01 1745 AC 08/04 IV 0336 Oxycodone HCl 5 MG Q4 HRS NEEDED PRN 07/01 2115 AC 07/04 PO 2201 Pantoprazole Sodium 40 MG DAILY 07/03 0900 DC 07/06 IV 1055 Promethazine HCl 12.5 MG Q6P PRN 07/01 1745 AC 07/06 IV 07/08 1359 1735 Impression/Plan Impression/Problem List Impression: Acute ischemic stroke: -Considering recent nephrectomy tPA was contraindicated, so will treat the patient in ICU conservatively. -Head end elevation -Carotid doppler showed 50-79% stenosis. Neurology recommended MRA but considering patient's one kidney and having acute kidney injury, we defer it. -Echocardiogram was done that showed no evidence of interatrial shunting with bubble study or thrombus. -Continue tele monitoring to see proxysma A.fib that could cause embolism and infact. -Continue aspirin 81mg as recommended by neurology. -Continue high dose lipitor. -Vascular surgery is aware of the patient and they recommended CTA prior to discharge and will follow him outpatient for endarterectomy in future. -Continue aggressive chest physiotherapy. -Patient was complaining of bad taste probably due to sensory loss of facial nerve. -Neuro recommended inpatient rehab. History of left renal cell carcinoma status post nephrectomy: -We will follow urology recommendations. -His surgical wound is clean and healing. Acute kidney injury:(Resolved) -Patient had cystoscopy and right ureteric stent placement recently. Possibly his elevated creatinine level is due to low clearance considering his left nephrectomy. -We will monitor input and output -Avoid nephrotoxic medications -His creatinine is 1.2 today. Retroperitoneal hematoma s/p surgery (stable). -Patient's postsurgical retroperitoneal hematoma is stable. -Patient's H&H is stable, today his H&H is 9.1/26.9 -We will continue monitoring it. Post surgery ilius (improving): -Patient had postsurgical ileus due to Manipulation during surgery, retroperitoneal hematoma and possibly use of opiates. -Patient bowel sounds are normal and he is tolerating nectar thick liquid. We will advance his diet today to heart healthy diet. Transaminitis: -Possibly due to Lipitor use. -Today his AST/ALT is 107/90 -We will monitor his liver function tests. Left shoulder pain: -Patient is complaining of left shoulder pain on movement as he reported that he hurt himself while lifting weight 1 day before coming for surgery. -Possibly muscle strain or ligament sprain or rotator cuff tear. -Managed conservatively at this point with pain medication. H/O GERD: -Continue iv protonix, changed to po omeprazole. H/O HTN: -Cardiology recommended that we can resume his outpatient amlodipine. Dose changed to 5mg daily. -Continue metoprolol 12.5 mg twice a day. -Hydralazine IV push as needed for elevated blood pressure. DVT prophylaxis: Mechanical and s/c heparin Code status: Full code. Problem List: 1. Ischemic stroke 2. Acute kidney injury 3. Transaminitis Pain Ratin Pain Location: none Tomorrow's Labs & Rationales: cbc/icu bundle Plan Respiratory: Respiratory dumont patient is stable, no need for supplemental oxygen Infectious Diseases: Patient is afebrile no source of infection. Cardiovascular: Patient is cardiovascularly stable but we will keep monitoring him for paroxysmal A. fib. Hematology: Patient's H&H is stable. His hemoglobin is stable today his hemoglobin/ hematocrit is 9.1/26.9 Metabolic: We will follow the creatinine level. His creatinine level is 1.2 possibly due to low clearance as he had left nephrectomy. patient has transaminitis possibly due to Lipitor diffuse we will monitor his liver function tests. Alimentary: Patient will get modified barium swallow test and they recommended PUREE AND NACTER THICK. Patient's bowel sounds has been improved. Patient is tolerating full liquid and nectar thick diet. We will change it to heart healthy. Neurological: Left upper extremity patient has mild ability to squeeze the finger. He has more proximal weakness compared to distal. His left leg power is improving he is able to move his leg against gravity and little bit against resistance. There is no sensory deficit. Patient has left mild facial droop. Dysphagia due to stroke, patient needs nectar thick diet. Patient is getting physiotherapy. DVT/Prophylaxis: mechanical, pharmacological Code Status: Full Code Mona SHI,[facility] 07/07/18 1315: Attending MD Review Statement Attending Sign Off Attending Cosign Statement: I have: examined this patient, reviewed al EMR data, personally reviewd images, discussd w/resident/PA/HUB BANDER, discussed mgmt plan w/glenn, discussed mgmt plan w/CM, discussed mgmt plan w/pt, agreed w/resident/PA/HUB BANDER, amended to note. Other Findings: IMPRESSION This is a gentleman with history of hypertension, remote larngeal ca with prior surg and xrt to the larynx, remote history of trauma to the chest wall with cardiac arrest from cardiac contusion with prior fractured ribs, recent renal cell carcinoma, left nephrectomy done yesterday, no seem to have a postoperative acute right lenticulostriate artery stroke with left hemiparesis and facial droop. At this time is clinically stable. Issues include * Acute right lenticulostriate ischemic stroke in a patient with renal cell carcinoma, hypertension. TPA was contraindicated and he will be managed medically, Pt now has worsening carotid stenosis on the right side and needs eval, see vascular note * Status post surgery for left-sided renal cell carcinoma, now with hematoma stable * Post op ileus * Dysphagia due to stroke needs necter thick diet * Hypertension * History of GERD/remote cured laryngeal ca, remote cardiac contusion history * So far in sinus rhythm, echo ok, no shunt * S/p surg now with post op hematoma Dr Arnett aware and will follow RECOMMENDATION * Keep the head of bed elevated * BP stable cont all meds * Aspirin * Lipitor 80 mg daily * Vascular surg see there recommendation ok to the floor
[2018-07-07 08:00] VITALS: BP 172/90
--- NOTE | 2018-07-07 10:16 | Transfer of Care Summary ---
Hospital Course Course Hospital Course: 68 YO M with PMH of hypertension, remote history of cardiac contusion due to trauma, prior laryngeal cancer, and a renal cell carcinoma status post nephrectomy on 07/02/18. After surgery he was in his usual state of health when he noticed having facial droop and left-sided weakness. Considering patient's nephrectomy, TPA was contraindicated. Patient was treated conservatively in ICU. His CT scan head showed acute infarction involving the right lenticulostriate artery territory. Patient was transferred to ICU. Acute ischemic stroke: Patient was treated conservatively for acute ischemic stroke in ICU. First 48 hours permissive hypertension was allowed for better perfusion of ischemic part of the brain. Had elevation was done to decrease intracranial pressure and prevent aspiration. Carotid ultrasound was done that showed 50-79% stenosis on right side. Considering patient's acute kidney injury and left nephrectomy CTA/ MRA was not done. Neurology consultation was obtained and recommendations were followed. Patient was given high dose aspirin and Lipitor. Later on aspirin dose was decreased to 81 mg every day recommended by neurology. Speech therapy evaluation was done considering failed bedside swallow evaluation. Modified barium swallow test was done and placed recommended pure and nectar thick diet to prevent aspiration. Patient is complaining of bad taste possibly due to involvement of sensory part of facial nerve. Patient is getting aggressive physiotherapy. Cardiology recommendations were followed. Echocardiogram was done with bubble study that ruled out any shunt or thrombus in atrium. Patient was monitored on patient monitor for any evidence of A. fib that didn't show any evidence of A. fib. Vascular surgery recommended CTA before patient being discharged so that they can follow him as outpatient for endarterectomy to prevent stroke in future. History of left renal cell carcinoma status post nephrectomy: Surgical site remained clean and and its healing. Urology is following the patient. Acute kidney injury: Patient had cystoscopy and right ureteric stent placement recently. Possibly his elevated creatinine level is due to low clearance considering his left nephrectomy. Nephrotoxic medications were avoided. His creatinine improved. Retroperitoneal hematoma s/p surgery. CT scan and plain abdominal/pelvis showed retroperitoneal hematoma extended to paracolic gutter and in pelvis. Patient was monitored for expanding hematoma or bleeding. His repeat CT scan showed stable hematoma. His H&H remained stable. Post surgery ilius: Patient had postsurgical ileus due to Manipulation during surgery, retroperitoneal hematoma and possibly use of opiates. Patient's bowel moments improved slowly. Patient is able to tolerate nectar thick liquid. Later on his diet was changed to heart healthy diet as tolerated. Patient is getting pure and nectar thick diet to prevent aspiration. Transaminitis: Possibly due to Lipitor use. He is AST/ALT is 107/90. We will keep following his liver function test. If it keeps increasing then we will consider decreasing his Lipitor dose or changing it to rosuvastatin. Tachyarrhythmia Patient had one episode of tachyarrhythmia possible supraventricular, sinus or A. fib. Cardiology recommended 21 day event monitor as an outpatient and start anticoagulation if afib or flutter is seen. Additionally, a LINQ can be considered if further long-term rhythm monitoring is indicated. Left shoulder pain: Patient is complaining of left shoulder pain on movement as he reported that he hurt himself while lifting weight 1 day before coming for surgery. Possibly muscle strain or ligament sprain or rotator cuff tear. Patient is getting ice packing. He is being managed conservatively for his shoulder pain. H/O GERD: Patient received IV Protonix initially later on changed to by mouth omeprazole. H/O HTN: Initially first 48 hours permissive hypertension was allowed by later on cardiology recommendations were followed and his outpatient amlodipine was resumed. Later on to control his blood pressure is home dose of metoprolol was resumed. Patient received IV pushes of hydralazine for blood pressure control as needed. DVT prophylaxis: Mechanical and s/c heparin Code status: Full code. Assessment/Plan: Acute ischemic stroke: -Considering recent nephrectomy tPA was contraindicated, so will treat the patient in ICU conservatively. -Head end elevation -Carotid doppler showed 50-79% stenosis. Neurology recommended MRA but considering patient's one kidney and having acute kidney injury, we defer it. -Echocardiogram was done that showed no evidence of interatrial shunting with bubble study or thrombus. -Continue tele monitoring to see proxysma A.fib that could cause embolism and infact. -Continue aspirin 81mg as recommended by neurology. -Continue high dose lipitor. -Vascular surgery is aware of the patient and they recommended CTA prior to discharge and will follow him outpatient for endarterectomy in future. -Continue aggressive chest physiotherapy. -Patient was complaining of bad taste probably due to sensory loss of facial nerve. -Neuro consult for further recommendations History of left renal cell carcinoma status post nephrectomy: -We will follow urology recommendations. -His surgical wound is clean and healing. Acute kidney injury:(Resolved) -Patient had cystoscopy and right ureteric stent placement recently. Possibly his elevated creatinine level is due to low clearance considering his left nephrectomy. -We will monitor input and output -Avoid nephrotoxic medications -His creatinine is 1.2 today. Retroperitoneal hematoma s/p surgery (stable). -Patient's postsurgical retroperitoneal hematoma is stable. -Patient's H&H is stable, today his H&H is 9.1/26.9 -We will continue monitoring it. Post surgery ilius (improving): -Patient had postsurgical ileus due to Manipulation during surgery, retroperitoneal hematoma and possibly use of opiates. -Patient bowel sounds are normal and he is tolerating nectar thick liquid. We will advance his diet today to heart healthy diet. Transaminitis: -Possibly due to Lipitor use. -Today his AST/ALT is 107/90 -We will monitor his liver function tests. Left shoulder pain: -Patient is complaining of left shoulder pain on movement as he reported that he hurt himself while lifting weight 1 day before coming for surgery. -Possibly muscle strain or ligament sprain or rotator cuff tear. -Managed conservatively at this point with pain medication. H/O GERD: -Continue iv protonix, changed to po omeprazole. H/O HTN: -Cardiology recommended that we can resume his outpatient amlodipine. Dose changed to 5mg daily. -Continue metoprolol 12.5 mg twice a day. -Hydralazine IV push as needed for elevated blood pressure. DVT prophylaxis: Mechanical and s/c heparin Code status: Full code.
--- NOTE | 2018-07-07 10:55 | Cons- Neurology ---
General Information and HPI Consulting Request Date of Consult: 07/07/18 Requested By: Jefferson Sen MD Reason for Consult: Determination of a rehab level of care Source of Information: patient, family, EMR Exam Limitations: no limitations History of Present Illness: 68-year-old left-handed man with a history of hypertension underwent nephrectomy (for renal cell CA) which was complicated by a perioperative stroke with left- sided weakness. CT scan showed a left-sided retroperitoneal hematoma. H&H has remained stable and he has remained hemodynamically stable. R ICA stenosis "50-79%" Dr Mccray ([facility]) rec CTA neck prior to d/c He has been maintained on aspirin & statin therapy. He works as a [employer]. He lives with his in a home with approximately 8 steps to enter. Allergies/Medications Allergies: Coded Allergies: No Known Allergies (06/30/18) Home Med List: Amlodipine Besylate (Unknown Strength) TABLET (Unknown Dose) PO DAILY BP ( Reported) Esomeprazole Magnesium (Nexium) 20 MG CAPSULE.DR 1 CAP PO DAILY GI (Reported) Metoprolol Succinate 25 MG TAB 1 TAB PO DAILY HTN (Reported) Current Medications: Current Medications Sig/Lizeth Start time Last Medication Dose Route Stop Time Status Admin Amlodipine Besylate 2.5 MG DAILY 07/04 1149 AC 07/07 PO 1010 Aspirin 81 MG DAILY 07/05 09 AC 07/07 PO 1010 Atorvastatin Calcium 80 MG 1700 07/02 1700 AC 07/06 PO 1736 Dextrose/Sodium 1,000 ML Q20H 07/05 1945 DC 07/05 [place] IV 2011 Heparin Sodium 5,000 UNIT Q8 07/02 0600 AC 07/07 (Porcine) SC 0541 Methylnaltrexone 12 MG Q48H 07/05 2000 AC 07/05 [place] 2122 Metoprolol Tartrate 12.5 MG BID 07/05 09 AC 07/07 PO 1010 Omeprazole 40 MG DAILY AC 07/07 0800 AC 07/07 PO 1010 Ondansetron HCl 4 MG Q6P PRN 07/01 1745 AC 07/05 IV 0336 Oxycodone HCl 5 MG Q4 HRS NEEDED PRN 07/01 2115 AC 07/04 PO 2201 Pantoprazole Sodium 40 MG DAILY 07/03 0900 DC 07/06 IV 1055 Potassium Chloride 40 MEQ ONCE ONE 07/06 1315 DC 07/06 PO 07/06 1316 1500 Promethazine HCl 12.5 MG Q6P PRN 07/01 1745 AC 07/06 IV 07/08 1359 1735 Review of Systems Review of Systems: REVIEW OF SYSTEMS: (-) = negative / normal blank = not discussed Neurologic: see HPI Eyes: Wears eyeglasses ENT: (-) Constitutional: (-) CV: (-) Respiratory: (-) /Renal: See HPI; currently has an indwelling Arteaga catheter Musculoskeletal: (-) Skin: (-) Psychiatric: (-) Heme: (-) GI: (-) Allergy/Immune: (-) Endocrine: (-) Other: (-) Past History Medical History Blood Transfusion Hx: No Neurological: NONE EENT: NONE Cardiovascular: hypertension Respiratory: NONE Gastrointestinal: GERD Hepatic: NONE Renal: NONE Musculoskeletal: PAIN TO L SHOULDER Psychiatric: NONE Endocrine: NONE Blood Disorders: NONE Cancer(s): NONE QUILL REAMER/Reproductive: NONE Surgical History Surgical History: appendectomy, HERNIA REPAIR Psychosocial History Where Do You Live? Home Services at Home: None Smoking Status: Former Smoker Exam & Diagnostic Data Vital Signs and I&O Vital Signs Date Time Temp Pulse Resp B/P B/P Pulse O2 O2 Flow FiO2 Mean Ox Delivery Rate 07/07 1010 92 167/82 07/07 1010 94 167/82 07/07 0000 99.4 78 18 167/81 95 Room Air 07/06 2131 85 165/93 07/06 1600 98.9 88 18 165/80 97 Room Air 07/06 1055 80 176/90 07/06 1055 88 176/90 Intake & Output 07/07 1600 07/07 0800 07/07 0000 Intake Total 650 940 Output Total 830 690 Balance -180 250 Intake, IV 600 600 Intake, Oral 50 340 Output, Urine 830 690 Physical Exam: PHYSICAL EXAMINATION: nl = normal NT or blank = not tested GENERAL Appearance: nl Head: nl Eyes: nl ENT: nl Neck: nl Carotids: nl Lungs: nl Heart: nl Extremities: nl Spine:nl NEUROLOGIC MENTAL STATUS Level of consciousness: nl Orientation: nl Attention / Concentration: nl Memory: nl Fund of Knowledge: nl Speech / Language: nl NEUROLOGIC CRANIAL NERVES I: Olfaction: NT II: Optic nerves: nl Visual jones: nl III: Pupils: nl Levator palpebrae: nl III, IV, : Ocular alignment: nl Extraocular motility: nl Pursuits/ saccades: nl V: Facial sensation: nl Masseter/Pterygoids: nl VII: Facial Motor: Very minimal left lower facial weakness VIII: Hearing (finger rub): nl IX, X: Uvula and palate: nl XI: SCM, Upper trap.: nl XII: Tongue: nl MOTOR / NEUROMUSCULAR Bulk: nl Tone: nl on R, reduced L UE>LE Strength: nl R, L delt/biceps/triceps/L hand intrinsics 0 to 1/5 L wrist/fingers flex/ext 3+ L hip/knee 3+ to 4- L foot/ankle 4 to 4+ Rapid alternating movements & Fine motor movements: nl R, impaired L Abnormal / involuntary movements: none CEREBELLAR / COORDINATION: intact SENSATION: intact to lt touch & jt position GAIT: stood w/ PT & OT using hemiwalker & contact guard Last 48 Hours of Lab Results: Laboratory Tests 07/07 07/06 0400 1410 Chemistry Sodium (137 - 145 mmol/L) 137 Potassium (3.5 - 5.1 mmol/L) 4.1 Chloride (98 - 107 mmol/L) 107 Carbon Dioxide (22 - 30 mmol/L) 25 Anion Gap (5 - 16) 5 BUN (9 - 20 mg/dL) 18 Creatinine (0.7 - 1.2 mg/dL) 1.2 Estimated GFR (>60 ml/min) > 60 Glucose (65 - 99 mg/dL) 108 H Calcium (8.4 - 10.2 mg/dL) 8.9 Phosphorus (2.5 - 4.5 mg/dL) 3.5 Magnesium (1.6 - 2.3 mg/dL) 2.1 Total Bilirubin (0.2 - 1.3 mg/dL) 1.4 H AST (17 - 59 U/L) 107 H ALT (21 - 72 U/L) 90 H Albumin (3.5 - 5.0 g/dL) 2.8 L Hematology CBC w Diff NO MAN DIFF REQ NO MAN DIFF REQ WBC (4.8 - 10.8 /CUMM) 7.2 6.8 RBC (4.70 - 6.10 /CUMM) 2.99 L 2.94 L Hgb (14.0 - 18.0 G/DL) 9.1 L 8.9 L Hct (42 - 52 %) 26.9 L 26.1 L MCV (80.0 - 94.0 FL) 90.1 88.8 MCH (27.0 - 31.0 PG) 30.4 30.3 MCHC (33.0 - 37.0 G/DL) 33.8 34.1 RDW (11.5 - 14.5 %) 13.7 13.9 Plt Count (130 - 400 /CUMM) 252 254 MPV (7.4 - 10.4 FL) 7.7 6.9 L Gran % (42.2 - 75.2 %) 68.8 72.3 Lymphocytes % (20.5 - 51.1 %) 12.0 L 10.7 L Monocytes % (1.7 - 9.3 %) 13.7 H 11.9 H Eosinophils % (0 - 5 %) 5.0 4.9 Basophils % (0.0 - 2.0 %) 0.5 0.2 Absolute Granulocytes (1.4 - 6.5 /CUMM) 5.0 4.9 Absolute Lymphocytes (1.2 - 3.4 /CUMM) 0.9 L 0.7 L Absolute Monocytes (0.10 - 0.60 /CUMM) 1.0 H 0.8 H Absolute Eosinophils (0.0 - 0.7 /CUMM) 0.4 0.3 Absolute Basophils (0.0 - 0.2 /CUMM) 0 0 07/06 07/05 0410 1910 Chemistry Sodium (137 - 145 mmol/L) 140 Potassium (3.5 - 5.1 mmol/L) 3.6 Chloride (98 - 107 mmol/L) 108 H Carbon Dioxide (22 - 30 mmol/L) 25 Anion Gap (5 - 16) 7 BUN (9 - 20 mg/dL) 20 Creatinine (0.7 - 1.2 mg/dL) 1.2 Estimated GFR (>60 ml/min) > 60 Glucose (65 - 99 mg/dL) 104 H Calcium (8.4 - 10.2 mg/dL) 8.8 Phosphorus (2.5 - 4.5 mg/dL) 3.1 Magnesium (1.6 - 2.3 mg/dL) 2.5 H Total Bilirubin (0.2 - 1.3 mg/dL) 1.4 H AST (17 - 59 U/L) 48 ALT (21 - 72 U/L) 40 Albumin (3.5 - 5.0 g/dL) 2.7 L Hematology CBC w Diff NO MAN DIFF REQ NO MAN DIFF REQ WBC (4.8 - 10.8 /CUMM) 6.4 6.7 RBC (4.70 - 6.10 /CUMM) 2.78 L 2.99 L Hgb (14.0 - 18.0 G/DL) 8.4 L 9.0 L Hct (42 - 52 %) 25.0 L 26.6 L MCV (80.0 - 94.0 FL) 90.2 88.8 MCH (27.0 - 31.0 PG) 30.2 30.2 MCHC (33.0 - 37.0 G/DL) 33.5 34.0 RDW (11.5 - 14.5 %) 13.9 14.0 Plt Count (130 - 400 /CUMM) 231 230 MPV (7.4 - 10.4 FL) 7.0 L 7.1 L Gran % (42.2 - 75.2 %) 66.2 71.8 Lymphocytes % (20.5 - 51.1 %) 15.0 L 13.6 L Monocytes % (1.7 - 9.3 %) 12.5 H 9.9 H Eosinophils % (0 - 5 %) 6.0 H 4.2 Basophils % (0.0 - 2.0 %) 0.3 0.5 Absolute Granulocytes (1.4 - 6.5 /CUMM) 4.2 4.8 Absolute Lymphocytes (1.2 - 3.4 /CUMM) 1.0 L 0.9 L Absolute Monocytes (0.10 - 0.60 /CUMM) 0.8 H 0.7 H Absolute Eosinophils (0.0 - 0.7 /CUMM) 0.4 0.3 Absolute Basophils (0.0 - 0.2 /CUMM) 0 0 Imaging/Other Studies: Hd CT: IMPRESSION: 1. No intracranial hemorrhage. 2. Findings consistent with acute infarction involving the right lenticulostriate artery territory. CT abd/pelvis IMPRESSION: 1. Status post recent left nephrectomy. The left retroperitoneal hematoma is unchanged compared to 07/04/2018. (2.5 x 4 cm hyperdense hematoma posterior to the left adrenal gland ) No new hemorrhage. 2. The hemoperitoneum within the pelvis has decreased compared to 07/04/2018. 3. Postoperative pneumoperitoneum. 4. Pancolonic diverticulosis. 5. Persistent small left pleural effusion with compressive atelectasis of left lower lobe. DICTATED BY: Jefferson Tubbs MD DATE/TIME DICTATED:07/06/18 135 MBS: COMPARISON: CT of the head done on 07/02/2018. TECHNIQUE: Modified barium swallow study was performed with speech therapist. FINDINGS: Mild residual is noted within the vallecula with all food consistencies. Delayed swallowing with spillage into the vallecula is noted. Penetration without sensation to the vocal folds is also noted. Swallowing improved with chin tuck maneuver. No evidence of any aspiration. FLUOROSCOPY TIME: 2 minutes and 9 seconds. NUMBER OF IMAGES: 16 images IMPRESSION: Abnormal modified barium swallow study. Full procedural details and findings will be dictated by the speech therapist. DICTATED BY: Gerardo Sy MD IMPRESSION: 1. RIGHT: Hemodynamically significant stenosis of the proximal right internal carotid artery corresponding to a 50-79% stenosis by velocity criteria. Velocity is significantly increased from November 2013 where it measured 81 cm/s within the proximal right internal carotid artery. 2. LEFT: Minimal, nonhemodynamically significant stenosis of the proximal left internal carotid artery corresponding to a 0-49% stenosis by velocity criteria. 3. Elevated velocity of 249 cm/s within the right external carotid artery consistent with stenosis. DICTATED BY: Jose Hyman MD DATE/TIME DICTATED:07/02/18 1536 Assessment/Plan Assessment: Mobility, self-care, and swallow dysfunction secondary to a perioperative ischemic stroke Recommendations: At his current functional level he is an excellent candidate for acute level inpatient rehabilitation Consult Acknowledgment - Thank you for your consult request.
--- NOTE | 2018-07-07 11:17 | PN- Cardiology ---
Subjective Subjective: Patient seen at bedside. Patient denies chest pain, palpitations, dyspnea. Objective Vital Signs and I&Os Vital Signs Date Time Temp Pulse Resp B/P B/P Pulse O2 O2 Flow FiO2 Mean Ox Delivery Rate 07/07 1010 92 167/82 07/07 1010 94 167/82 / 0800 96 Room Air / 0800 98.6 92 19 172/90 96 Room Air / 0000 99.4 78 18 167/81 95 Room Air 07/06 2131 85 165/93 07/06 1600 98.9 88 18 165/80 97 Room Air Intake & Output 07/07 1600 07/07 0807/07 0000 / 1600 07/06 0807/06 0000 Intake Total 226 147 5987 600 900 Output Total 830 690 400 710 870 Balance -738 643 5323 -110 30 Intake, IV 600 600 600 600 600 Intake, Oral 50 340 800 300 Output, Urine 830 690 400 710 870 Physical Exam: General: no apparent distress HEENT: NCAT, NO JVD, +R carotid bruit Heart: s1s2, RRR, no MRG Lungs: CTA b/l Abd: soft, nt Ext: no lower extremity peripheral edema; +LUE edema Current Medications: Current Medications Sig/Lizeth Start time Last Medication Dose Route Stop Time Status Admin Amlodipine Besylate 2.5 MG DAILY 07/04 1149 AC 07/07 PO 1010 Aspirin 81 MG DAILY 07/05 09 AC 07/07 PO 1010 Atorvastatin Calcium 80 MG 1700 / 1700 AC 07/06 PO 1736 Dextrose/Sodium 1,000 ML Q20H 07/05 194 DC 07/05 Chlor[place] IV 2010 Heparin Sodium 5,000 UNIT Q8 07/02 06 AC 07/07 (Porcine) SC 0541 Methylnaltrexone 12 MG Q48H 07/05 2000 AC 07/05 [place] SC 212 Metoprolol Tartrate 12.5 MG BID 07/05 900 AC 07/07 PO 1010 Omeprazole 40 MG DAILY AC 07/07 08 AC 07/07 PO 1010 Ondansetron HCl 4 MG Q6P PRN 07/01 1745 AC 07/05 IV 0336 Oxycodone HCl 5 MG Q4 HRS NEEDED PRN 07/01 211 AC 07/04 PO 220 Pantoprazole Sodium 40 MG DAILY 07/03 900 DC 07/06 IV 1055 Potassium Chloride 40 MEQ ONCE ONE 07/06 1315 DC 07/06 PO 07/06 1316 1500 Promethazine HCl 12.5 MG Q6P PRN 07/01 1745 AC 07/06 IV 07/08 1359 1735 Results Last 48 Hrs of Labs/Mics: Laboratory Tests 07/07/18 0400: Anion Gap 5, Estimated GFR > 60, Glucose 108 H, Calcium 8.9, Phosphorus 3.5, Magnesium 2.1, Total Bilirubin 1.4 H, AST 107 H, ALT 90 H, Albumin 2.8 L, CBC w Diff NO MAN DIFF REQ, RBC 2.99 L, MCV 90.1, MCH 30.4, MCHC 33.8, RDW 13.7 , MPV 7.7, Gran % 68.8, Lymphocytes % 12.0 L, Monocytes % 13.7 H, Eosinophils % 5.0, Basophils % 0.5, Absolute Granulocytes 5.0, Absolute Lymphocytes 0.9 L, Absolute Monocytes 1.0 H, Absolute Eosinophils 0.4, Absolute Basophils 0 07/06/18 1410: CBC w Diff NO MAN DIFF REQ, RBC 2.94 L, MCV 88.8, MCH 30.3, MCHC 34.1, RDW 13.9 , MPV 6.9 L, Gran % 72.3, Lymphocytes % 10.7 L, Monocytes % 11.9 H, Eosinophils % 4.9, Basophils % 0.2, Absolute Granulocytes 4.9, Absolute Lymphocytes 0.7 L, Absolute Monocytes 0.8 H, Absolute Eosinophils 0.3, Absolute Basophils 0 07/06/18 0410: Anion Gap 7, Estimated GFR > 60, Glucose 104 H, Calcium 8.8, Phosphorus 3.1, Magnesium 2.5 H, Total Bilirubin 1.4 H, AST 48, ALT 40, Albumin 2.7 L, CBC w Diff NO MAN DIFF REQ, RBC 2.78 L, MCV 90.2, MCH 30.2, MCHC 33.5, RDW 13.9, MPV 7.0 L, Gran % 66.2, Lymphocytes % 15.0 L, Monocytes % 12.5 H, Eosinophils % 6.0 H, Basophils % 0.3, Absolute Granulocytes 4.2, Absolute Lymphocytes 1.0 L, Absolute Monocytes 0.8 H, Absolute Eosinophils 0.4, Absolute Basophils 0 07/05/181909: CBC w Diff NO MAN DIFF REQ, RBC 2.99 L, MCV 88.8, MCH 30.2, MCHC 34.0, RDW 14.0 , MPV 7.1 L, Gran % 71.8, Lymphocytes % 13.6 L, Monocytes % 9.9 H, Eosinophils % 4.2, Basophils % 0.5, Absolute Granulocytes 4.8, Absolute Lymphocytes 0.9 L, Absolute Monocytes 0.7 H, Absolute Eosinophils 0.3, Absolute Basophils 0 Recent Imaging Studies: Telemetry: Personally reviewed, normal sinus rhythm, no atrial fibrillation/ flutter or other arrhythmia Assessment/Plan Assessment/Plan 1. Renal cell cancer status post nephrectomy 07/01/18 now with acute CVA 2. History of hypertension 3. History of remote laryngeal cancer 4. Remote history of prior cardiac contusion/cardiac arrest due to trauma 5. Carotid artery disease - right ICA w hemodynamically significant disease Patient remains hemodynamically stable. Echocardiogram with no evidence of thrombus or shunt. No evidence of atrial fibrillation on telemetry thus far. Additional imaging of carotid vessels per neurology. BP remains elevated. Would increase amlodipine to 5mg po daily today. Would keep on telemetry for the duration of his hospitalization to monitor for silent atrial for ablation. Continue telemetry? Yes
--- NOTE | 2018-07-07 11:41 | PN- Urology ---
Surgical Brief Attending Note Brief Attending Note: Pt without incident this weekend; vss afebrile and tolerating clears; HTN persists and cardiology has been consulted. h/h overall stable with expected drop post nephrectomy. Plan: agree with progressing to telemetry stepdown. Would advance diet to regular when pt has BM. Appreciate vascular note and tx for recent ishcemic event. DC plan to rehab likely, as per med.
[2018-07-07 16:00] VITALS: BP 152/84
[2018-07-07 21:30] VITALS: BP 150/80
[2018-07-08] VITALS: BP 150/100
[2018-07-08 05:14] LABS: ABSOLUTE BASOPHIL COUNT 0 /CUMM (0.0-0.2); ABSOLUTE EOSINOPHIL COUNT 0.5 /CUMM (0.0-0.7); ABSOLUTE GRANULOCYTE CT 6.6 /CUMM (1.4-6.5); ABSOLUTE LYMPH COUNT 0.9 /CUMM (1.2-3.4); ABSOLUTE MONOCYTE COUNT 1.3 /CUMM (0.10-0.60); BASOPHIL % 0.2 % (0.0-2.0); EOSINOPHIL % 5.2 % (0-5); GRANULOCYTE % 70.8 % (42.2-75.2); HEMATOCRIT 28.3 % (42-52); MEAN CORPUSCULAR HGB 30.8 PG (27.0-31.0); MEAN CORPUSCULAR HGB CONC 34.4 G/DL (33.0-37.0); MEAN CORPUSCULAR VOLUME 89.4 FL (80.0-94.0); MEAN PLATELET VOLUME 7.8 FL (7.4-10.4); PLATELET COUNT 280 /CUMM (130-400); RBC DISTRIBUTION WIDTH 13.5 % (11.5-14.5); RED BLOOD CELL CT 3.17 /CUMM (4.70-6.10); WHITE BLOOD CELL COUNT 9.3 /CUMM (4.8-10.8)
--- NOTE | 2018-07-08 07:20 | PN- Resident CRCU ---
Subjective HPI/CRCU Issues: Acute right lenticulostriate CVA Renal cell carcinoma status post left nephrectomy on 07/01/18 S/p surg now with post op hematoma Dr Arnett aware and will follow History of hypertension History of remote laryngeal cancer Remote history of prior cardiac contusion/cardiac arrest due to trauma Retroperitoneal hematoma s/p surgery (stable) Post surgery ilius (improving). Transaminitis (improving) 24 Hour Events: No overnight events. Patient remained afebrile. Seen and examined this morning. She denied chest pain, palpitation, nausea, vomiting, chills, fever, abdominal pain dysuria. He is doing his physical therapy. Patient is feeling improved. Patient complaining of bad taste of his mouth. Objective Vital Signs & I&O Last 8 Hrs of Vitals and I&O: Intake & Output 07/08 1600 07/08 0800 07/08 0000 Intake Total 100 75 Output Total 350 350 Balance -250 -275 Intake, Oral 100 75 Output, Urine 350 350 Laboratory Tests 07/08 0359 Chemistry Sodium (137 - 145 mmol/L) 135 L Potassium (3.5 - 5.1 mmol/L) 4.2 Chloride (98 - 107 mmol/L) 103 Carbon Dioxide (22 - 30 mmol/L) 25 Anion Gap (5 - 16) 7 BUN (9 - 20 mg/dL) 21 H Creatinine (0.7 - 1.2 mg/dL) 1.3 H Estimated GFR (>60 ml/min) 55 L Glucose (65 - 99 mg/dL) 95 Calcium (8.4 - 10.2 mg/dL) 9.0 Phosphorus (2.5 - 4.5 mg/dL) 4.0 Magnesium (1.6 - 2.3 mg/dL) 2.1 Total Bilirubin (0.2 - 1.3 mg/dL) 1.8 H AST (17 - 59 U/L) 75 H ALT (21 - 72 U/L) 86 H Albumin (3.5 - 5.0 g/dL) 3.0 L Hematology CBC w Diff NO MAN DIFF REQ WBC (4.8 - 10.8 /CUMM) 9.3 RBC (4.70 - 6.10 /CUMM) 3.17 L Hgb (14.0 - 18.0 G/DL) 9.7 L Hct (42 - 52 %) 28.3 L MCV (80.0 - 94.0 FL) 89.4 MCH (27.0 - 31.0 PG) 30.8 MCHC (33.0 - 37.0 G/DL) 34.4 RDW (11.5 - 14.5 %) 13.5 Plt Count (130 - 400 /CUMM) 280 MPV (7.4 - 10.4 FL) 7.8 Gran % (42.2 - 75.2 %) 70.8 Lymphocytes % (20.5 - 51.1 %) 10.2 L Monocytes % (1.7 - 9.3 %) 13.6 H Eosinophils % (0 - 5 %) 5.2 H Basophils % (0.0 - 2.0 %) 0.2 Absolute Granulocytes (1.4 - 6.5 /CUMM) 6.6 H Absolute Lymphocytes (1.2 - 3.4 /CUMM) 0.9 L Absolute Monocytes (0.10 - 0.60 /CUMM) 1.3 H Absolute Eosinophils (0.0 - 0.7 /CUMM) 0.5 Absolute Basophils (0.0 - 0.2 /CUMM) 0 I&O 24 Hours Total Intake 2854 07/03/18 0000 Exam General Appearance: well developed/nourished, no apparent distress, alert, awake Head: atraumatic, normal appearance Neck: normal inspection, supple Respiratory: normal breath sounds, chest non-tender Cardiovascular: regular rate/rhythm Gastrointestinal: normal bowel sounds, soft, non-tender Extremities: normal inspection Cranial Nerves: normal hearing, PERRL, facial asymmetry Skin Temp/Moisture Exam: Warm/Dry Sepsis Skin Exam (color): Normal for Ethnicity Current Medications: Current Medications Sig/Lizeth Start time Last Medication Dose Route Stop Time Status Admin Amlodipine Besylate 10 MG DAILY 07/09 900 AC PO Amlodipine Besylate 5 MG ONCE ONE 07/08 1200 DC 07/08 PO 07/08 1201 1332 Amlodipine Besylate 5 MG DAILY 07/08 900 DC 07/08 PO 0943 Aspirin 81 MG DAILY 07/05 900 AC 07/08 PO 0942 Atorvastatin Calcium 80 MG 1700 07/02 1700 AC 07/07 PO 1712 Heparin Sodium 5,000 UNIT Q8 07/02 06 AC 07/08 (Porcine) SC 1333 Methylnaltrexone 12 MG Q48H 07/05 2000 AC 07/07 [place] SC 2117 Metoprolol Tartrate 12.5 MG BID 07/05 900 AC 07/08 PO 0943 Omeprazole 40 MG DAILY AC 07/07 800 AC 07/08 PO 0613 Ondansetron HCl 4 MG Q6P PRN 07/01 1745 AC 07/05 IV 0336 Oxycodone HCl 5 MG Q4 HRS NEEDED PRN 07/01 2115 AC 07/04 PO 2201 Promethazine HCl 12.5 MG Q6P PRN 07/01 1745 DC 07/06 IV 07/08 1359 1735 Impression/Plan Impression/Problem List Impression: Acute ischemic stroke: -Considering recent nephrectomy tPA was contraindicated, so will treat the patient in ICU conservatively. -Head end elevation -Carotid doppler showed 50-79% stenosis. Vascular surgery is aware of the patient and they recommended CTA prior to discharge and will follow him outpatient for endarterectomy in future. -Echocardiogram was done that showed no evidence of interatrial shunting with bubble study or thrombus. -Continue tele monitoring to see angela Weiner that could cause embolism and infact. -Continue aspirin 81mg as recommended by neurology. -Continue high dose lipitor. -Continue aggressive physiotherapy. -Patient was complaining of bad taste probably due to sensory loss of facial nerve. -Neuro recommended inpatient rehab. -Patient was downgraded to telemetry floor. History of left renal cell carcinoma status post nephrectomy: -We will follow urology recommendations. -His surgical wound is clean and healing. Acute kidney injury: -Patient had cystoscopy and right ureteric stent placement recently. Possibly his elevated creatinine level is due to low clearance considering his left nephrectomy. -We will monitor input and output -Avoid nephrotoxic medications -His creatinine is 1.3 today. Retroperitoneal hematoma s/p surgery (stable). -Patient's postsurgical retroperitoneal hematoma is stable. -Patient's H&H is stable, today his H&H is 9.3/28.3 -We will continue monitoring it. Post surgery ilius (improving): -Patient had postsurgical ileus due to Manipulation during surgery, retroperitoneal hematoma and possibly use of opiates. -Patient is tolerating heart healthy diet with pure and nectar thick consistency. Transaminitis:(IMPROVING) -Possibly due to Lipitor use. -Today his AST/ALT is 75/86 -We will monitor his liver function tests. Left shoulder pain: -Patient is complaining of left shoulder pain on movement as he reported that he hurt himself while lifting weight 1 day before coming for surgery. -Possibly muscle strain or ligament sprain or rotator cuff tear. -Managed conservatively at this point with pain medication. H/O GERD: -Continue iv protonix, changed to po omeprazole. H/O HTN: -Cardiology recommended that we can resume his outpatient amlodipine. Dose changed to 10mg daily. Patient may need another antihypertensive medication. -Continue metoprolol 12.5 mg twice a day. -Hydralazine IV push as needed for elevated blood pressure. DVT prophylaxis: Mechanical and s/c heparin Code status: Full code. Problem List: 1. Ischemic stroke 2. Transaminitis 3. Acute kidney injury Pain Ratin Pain Location: none Tomorrow's Labs & Rationales: cbc/icu bundle Plan DVT/Prophylaxis: mechanical, pharmacological Code Status: Full Code
[2018-07-08 08:00] VITALS: BP 158/90
--- NOTE | 2018-07-08 09:25 | PN- Cardiology ---
Subjective Subjective: Patient seen at bedside. Patient reports he feels improved from yesterday. Denies chest pain, palpitations, dyspnea. Objective Vital Signs and I&Os Vital Signs Date Time Temp Pulse Resp B/P B/P Pulse O2 O2 Flow FiO2 Mean Ox Delivery Rate 07/08 0000 95 Room Air 07/08 0000 98.0 74 24 150/100 95 Room Air / 2130 93 20 150/80 07/07 2130 95 Room Air 07/07 2124 87 18 150/80 07/07 1600 98.6 78 20 152/84 96 Room Air 07/07 1232 83 149/83 07/07 1010 92 167/82 07/07 1010 94 167/82 Intake & Output 07/08 0807/08 0000 07/07 1600 07/07 0000 Intake Total 100 75 315 650 940 Output Total 350 350 525 830 690 Balance -250 -275 -210 -180 250 Intake, IV 75 600 600 Intake, Oral 100 75 240 50 340 Number 0 Bowel Movements Output, Urine 350 350 525 830 690 Physical Exam: General: no apparent distress HEENT: NCAT, NO JVD, +R carotid bruit Heart: s1s2, RRR, no MRG Lungs: CTA b/l Abd: soft, nt Ext: no lower extremity peripheral edema; +LUE edema Current Medications: Current Medications Sig/Lizeth Start time Last Medication Dose Route Stop Time Status Admin Amlodipine Besylate 5 MG DAILY 07/08 900 AC PO Amlodipine Besylate 2.5 MG ONCE ONE 07/07 1130 DC 07/07 PO 07/07 1131 1232 Amlodipine Besylate 2.5 MG DAILY 07/04 1149 DC 07/07 PO 1010 Aspirin 81 MG DAILY 07/05 900 AC 07/07 PO 1010 Atorvastatin Calcium 80 MG 1700 07/02 1700 AC 07/07 PO 1712 Heparin Sodium 5,000 UNIT Q8 07/02 600 AC 07/08 (Porcine) SC 0614 Methylnaltrexone 12 MG Q48H 07/05 2000 AC 07/07 [place] SC 211 Metoprolol Tartrate 12.5 MG BID 07/05 900 AC 07/07 PO 2124 Omeprazole 40 MG DAILY AC 07/07 08 AC 07/08 PO 0613 Ondansetron HCl 4 MG Q6P PRN 07/01 1745 07/05 IV 0336 Oxycodone HCl 5 MG Q4 HRS NEEDED PRN 07/01 211 07/04 PO 2201 Promethazine HCl 12.5 MG Q6P PRN 07/01 174 07/06 IV 07/08 1359 1735 Results Last 48 Hrs of Labs/Mics: Laboratory Tests 07/08/18 0359: Anion Gap 7, Estimated GFR 55 L, Glucose 95, Calcium 9.0, Phosphorus 4.0, Magnesium 2.1, Total Bilirubin 1.8 H, AST 75 H, ALT 86 H, Albumin 3.0 L, CBC w Diff NO MAN DIFF REQ, RBC 3.17 L, MCV 89.4, MCH 30.8, MCHC 34.4, RDW 13.5, MPV 7.8, Gran % 70.8, Lymphocytes % 10.2 L, Monocytes % 13.6 H, Eosinophils % 5.2 H, Basophils % 0.2, Absolute Granulocytes 6.6 H, Absolute Lymphocytes 0.9 L, Absolute Monocytes 1.3 H, Absolute Eosinophils 0.5, Absolute Basophils 0 07/07/18 0400: Anion Gap 5, Estimated GFR > 60, Glucose 108 H, Calcium 8.9, Phosphorus 3.5, Magnesium 2.1, Total Bilirubin 1.4 H, AST 107 H, ALT 90 H, Albumin 2.8 L, CBC w Diff NO MAN DIFF REQ, RBC 2.99 L, MCV 90.1, MCH 30.4, MCHC 33.8, RDW 13.7 , MPV 7.7, Gran % 68.8, Lymphocytes % 12.0 L, Monocytes % 13.7 H, Eosinophils % 5.0, Basophils % 0.5, Absolute Granulocytes 5.0, Absolute Lymphocytes 0.9 L, Absolute Monocytes 1.0 H, Absolute Eosinophils 0.4, Absolute Basophils 0 07/06/18 1410: CBC w Diff NO MAN DIFF REQ, RBC 2.94 L, MCV 88.8, MCH 30.3, MCHC 34.1, RDW 13.9 , MPV 6.9 L, Gran % 72.3, Lymphocytes % 10.7 L, Monocytes % 11.9 H, Eosinophils % 4.9, Basophils % 0.2, Absolute Granulocytes 4.9, Absolute Lymphocytes 0.7 L, Absolute Monocytes 0.8 H, Absolute Eosinophils 0.3, Absolute Basophils 0 Recent Imaging Studies: Telemetry: Personally reviewed, normal sinus rhythm Assessment/Plan Assessment/Plan 1. Renal cell cancer status post nephrectomy 07/01/18 now with acute CVA 2. History of hypertension 3. History of remote laryngeal cancer 4. Remote history of prior cardiac contusion/cardiac arrest due to trauma 5. Carotid artery disease - right ICA w hemodynamically significant disease Patient remains hemodynamically stable. Echocardiogram with no evidence of thrombus or shunt. No evidence of atrial fibrillation on telemetry thus far. Additional imaging of carotid vessels per neurology. Continue with aspirin, statin. BP remains elevated. Would increase amlodipine to 10mg po daily today. A second antihypertensive agent can be considered for tomorrow. Would keep on telemetry for the duration of his hospitalization to monitor for silent atrial fibrillation. Continue telemetry? Yes
--- NOTE | 2018-07-08 09:54 | PN- CRCU ---
Subjective HPI/Critical Care Issues: Patient seen at bedside. Patient reports he feels improved from yesterday. Denies chest pain, palpitations, dyspnea. Objective Current Medications: Current Medications Sig/Lizeth Start time Last Medication Dose Route Stop Time Status Admin Amlodipine Besylate 5 MG DAILY 07/08 900 AC 07/08 PO 0943 Amlodipine Besylate 2.5 MG ONCE ONE 07/07 1130 DC 07/07 PO 07/07 1131 1232 Amlodipine Besylate 2.5 MG DAILY 07/04 1149 DC 07/07 PO 1010 Aspirin 81 MG DAILY 07/05 09 AC 07/08 PO 0942 Atorvastatin Calcium 80 MG 1700 07/02 1700 AC 07/07 PO 1712 Heparin Sodium 5,000 UNIT Q8 07/02 600 AC 07/08 (Porcine) SC 0614 Methylnaltrexone 12 MG Q48H 07/05 2000 AC 07/07 [place] SC 2117 Metoprolol Tartrate 12.5 MG BID 07/05 900 AC 07/08 PO 0943 Omeprazole 40 MG DAILY AC 07/07 08 AC 07/08 PO 0613 Ondansetron HCl 4 MG Q6P PRN 07/01 1745 AC 07/05 IV 0336 Oxycodone HCl 5 MG Q4 HRS NEEDED PRN 07/01 2115 AC 07/04 PO 2201 Promethazine HCl 12.5 MG Q6P PRN 07/01 1745 AC 07/06 IV 07/08 1359 1735 Vital Signs & I&O Last 24 Hrs of Vitals and I&O: Vital Signs Date Time Temp Pulse Resp B/P B/P Pulse O2 O2 Flow FiO2 Mean Ox Delivery Rate 07/08 0943 84 148/76 07/08 0943 86 148/76 07/08 08 99.9 95 20 158/90 96 Room Air / 0000 95 Room Air 07/08 0000 98.0 74 24 150/100 95 Room Air / 2130 93 20 150/80 / 2130 95 Room Air / 2124 87 18 150/80 / 1600 98.6 78 20 152/84 96 Room Air / 1232 83 149/83 / 1010 92 167/82 / 1010 94 167/82 Intake & Output 07/08 1600 07/08 0807/08 0000 Intake Total 100 75 Output Total 350 350 Balance -250 -275 Intake, Oral 100 75 Output, Urine 350 350 Laboratory Tests 07/08 07/07 0359 0400 Chemistry Sodium (137 - 145 mmol/L) 135 L 137 Potassium (3.5 - 5.1 mmol/L) 4.2 4.1 Chloride (98 - 107 mmol/L) 103 107 Carbon Dioxide (22 - 30 mmol/L) 25 25 Anion Gap (5 - 16) 7 5 BUN (9 - 20 mg/dL) 21 H 18 Creatinine (0.7 - 1.2 mg/dL) 1.3 H 1.2 Estimated GFR (>60 ml/min) 55 L > 60 Glucose (65 - 99 mg/dL) 95 108 H Calcium (8.4 - 10.2 mg/dL) 9.0 8.9 Phosphorus (2.5 - 4.5 mg/dL) 4.0 3.5 Magnesium (1.6 - 2.3 mg/dL) 2.1 2.1 Total Bilirubin (0.2 - 1.3 mg/dL) 1.8 H 1.4 H AST (17 - 59 U/L) 75 H 107 H ALT (21 - 72 U/L) 86 H 90 H Albumin (3.5 - 5.0 g/dL) 3.0 L 2.8 L Hematology CBC w Diff NO MAN DIFF REQ NO MAN DIFF REQ WBC (4.8 - 10.8 /CUMM) 9.3 7.2 RBC (4.70 - 6.10 /CUMM) 3.17 L 2.99 L Hgb (14.0 - 18.0 G/DL) 9.7 L 9.1 L Hct (42 - 52 %) 28.3 L 26.9 L MCV (80.0 - 94.0 FL) 89.4 90.1 MCH (27.0 - 31.0 PG) 30.8 30.4 MCHC (33.0 - 37.0 G/DL) 34.4 33.8 RDW (11.5 - 14.5 %) 13.5 13.7 Plt Count (130 - 400 /CUMM) 280 252 MPV (7.4 - 10.4 FL) 7.8 7.7 Gran % (42.2 - 75.2 %) 70.8 68.8 Lymphocytes % (20.5 - 51.1 %) 10.2 L 12.0 L Monocytes % (1.7 - 9.3 %) 13.6 H 13.7 H Eosinophils % (0 - 5 %) 5.2 H 5.0 Basophils % (0.0 - 2.0 %) 0.2 0.5 Absolute Granulocytes (1.4 - 6.5 /CUMM) 6.6 H 5.0 Absolute Lymphocytes (1.2 - 3.4 /CUMM) 0.9 L 0.9 L Absolute Monocytes (0.10 - 0.60 /CUMM) 1.3 H 1.0 H Absolute Eosinophils (0.0 - 0.7 /CUMM) 0.5 0.4 Absolute Basophils (0.0 - 0.2 /CUMM) 0 0 07/06 1410 Hematology CBC w Diff NO MAN DIFF REQ WBC (4.8 - 10.8 /CUMM) 6.8 RBC (4.70 - 6.10 /CUMM) 2.94 L Hgb (14.0 - 18.0 G/DL) 8.9 L Hct (42 - 52 %) 26.1 L MCV (80.0 - 94.0 FL) 88.8 MCH (27.0 - 31.0 PG) 30.3 MCHC (33.0 - 37.0 G/DL) 34.1 RDW (11.5 - 14.5 %) 13.9 Plt Count (130 - 400 /CUMM) 254 MPV (7.4 - 10.4 FL) 6.9 L Gran % (42.2 - 75.2 %) 72.3 Lymphocytes % (20.5 - 51.1 %) 10.7 L Monocytes % (1.7 - 9.3 %) 11.9 H Eosinophils % (0 - 5 %) 4.9 Basophils % (0.0 - 2.0 %) 0.2 Absolute Granulocytes (1.4 - 6.5 /CUMM) 4.9 Absolute Lymphocytes (1.2 - 3.4 /CUMM) 0.7 L Absolute Monocytes (0.10 - 0.60 /CUMM) 0.8 H Absolute Eosinophils (0.0 - 0.7 /CUMM) 0.3 Absolute Basophils (0.0 - 0.2 /CUMM) 0 Laboratory Tests 07/08 07/07 0359 0400 Chemistry Sodium (137 - 145 mmol/L) 135 L 137 Potassium (3.5 - 5.1 mmol/L) 4.2 4.1 Chloride (98 - 107 mmol/L) 103 107 Carbon Dioxide (22 - 30 mmol/L) 25 25 Anion Gap (5 - 16) 7 5 BUN (9 - 20 mg/dL) 21 H 18 Creatinine (0.7 - 1.2 mg/dL) 1.3 H 1.2 Estimated GFR (>60 ml/min) 55 L > 60 Glucose (65 - 99 mg/dL) 95 108 H Calcium (8.4 - 10.2 mg/dL) 9.0 8.9 Phosphorus (2.5 - 4.5 mg/dL) 4.0 3.5 Magnesium (1.6 - 2.3 mg/dL) 2.1 2.1 Total Bilirubin (0.2 - 1.3 mg/dL) 1.8 H 1.4 H AST (17 - 59 U/L) 75 H 107 H ALT (21 - 72 U/L) 86 H 90 H Albumin (3.5 - 5.0 g/dL) 3.0 L 2.8 L Hematology CBC w Diff NO MAN DIFF REQ NO MAN DIFF REQ WBC (4.8 - 10.8 /CUMM) 9.3 7.2 RBC (4.70 - 6.10 /CUMM) 3.17 L 2.99 L Hgb (14.0 - 18.0 G/DL) 9.7 L 9.1 L Hct (42 - 52 %) 28.3 L 26.9 L MCV (80.0 - 94.0 FL) 89.4 90.1 MCH (27.0 - 31.0 PG) 30.8 30.4 MCHC (33.0 - 37.0 G/DL) 34.4 33.8 RDW (11.5 - 14.5 %) 13.5 13.7 Plt Count (130 - 400 /CUMM) 280 252 MPV (7.4 - 10.4 FL) 7.8 7.7 Gran % (42.2 - 75.2 %) 70.8 68.8 Lymphocytes % (20.5 - 51.1 %) 10.2 L 12.0 L Monocytes % (1.7 - 9.3 %) 13.6 H 13.7 H Eosinophils % (0 - 5 %) 5.2 H 5.0 Basophils % (0.0 - 2.0 %) 0.2 0.5 Absolute Granulocytes (1.4 - 6.5 /CUMM) 6.6 H 5.0 Absolute Lymphocytes (1.2 - 3.4 /CUMM) 0.9 L 0.9 L Absolute Monocytes (0.10 - 0.60 /CUMM) 1.3 H 1.0 H Absolute Eosinophils (0.0 - 0.7 /CUMM) 0.5 0.4 Absolute Basophils (0.0 - 0.2 /CUMM) 0 0 08/05 1410 Hematology CBC w Diff NO MAN DIFF REQ WBC (4.8 - 10.8 /CUMM) 6.8 RBC (4.70 - 6.10 /CUMM) 2.94 L Hgb (14.0 - 18.0 G/DL) 8.9 L Hct (42 - 52 %) 26.1 L MCV (80.0 - 94.0 FL) 88.8 MCH (27.0 - 31.0 PG) 30.3 MCHC (33.0 - 37.0 G/DL) 34.1 RDW (11.5 - 14.5 %) 13.9 Plt Count (130 - 400 /CUMM) 254 MPV (7.4 - 10.4 FL) 6.9 L Gran % (42.2 - 75.2 %) 72.3 Lymphocytes % (20.5 - 51.1 %) 10.7 L Monocytes % (1.7 - 9.3 %) 11.9 H Eosinophils % (0 - 5 %) 4.9 Basophils % (0.0 - 2.0 %) 0.2 Absolute Granulocytes (1.4 - 6.5 /CUMM) 4.9 Absolute Lymphocytes (1.2 - 3.4 /CUMM) 0.7 L Absolute Monocytes (0.10 - 0.60 /CUMM) 0.8 H Absolute Eosinophils (0.0 - 0.7 /CUMM) 0.3 Absolute Basophils (0.0 - 0.2 /CUMM) 0 Impression/Plan Impression/Plan Impression/Plan: General: no apparent distress HEENT: NCAT, NO JVD, +R carotid bruit Heart: s1s2, RRR, no MRG Lungs: CTA b/l Abd: soft, nt Ext: no lower extremity peripheral edema; +LUE edema Left upper ext weakness This is a gentleman with history of hypertension, remote larngeal ca with prior surg and xrt to the larynx, remote history of trauma to the chest wall with cardiac arrest from cardiac contusion with prior fractured ribs, recent renal cell carcinoma, left nephrectomy done yesterday, no seem to have a postoperative acute right lenticulostriate artery stroke with left hemiparesis and facial droop. At this time is clinically stable. Issues include * Acute right lenticulostriate ischemic stroke in a patient with renal cell carcinoma, hypertension. TPA was contraindicated and he will be managed medically, Pt now has worsening carotid stenosis on the right side and needs eval, see vascular note * Status post surgery for left-sided renal cell carcinoma, now with hematoma stable * Post op ileus * Dysphagia due to stroke needs necter thick diet * Hypertension * History of GERD/remote cured laryngeal ca, remote cardiac contusion history * So far in sinus rhythm, echo ok, no shunt * S/p surg now with post op hematoma Dr Arnett aware and will follow RECOMMENDATION * Keep the head of bed elevated * BP stable cont all meds * Aspirin * Lipitor 80 mg daily TO tele pt needs acute inpatient rehab and is a candidate for [place] - child care 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
[2018-07-08 16:00] VITALS: BP 136/80
[2018-07-09] VITALS: BP 150/90
[2018-07-09 05:33] LABS: ABSOLUTE BASOPHIL COUNT 0.1 /CUMM (0.0-0.2); ABSOLUTE EOSINOPHIL COUNT 0.5 /CUMM (0.0-0.7); ABSOLUTE GRANULOCYTE CT 6.3 /CUMM (1.4-6.5); ABSOLUTE LYMPH COUNT 1.2 /CUMM (1.2-3.4); BASOPHIL % 0.7 % (0.0-2.0); EOSINOPHIL % 5.3 % (0-5); HEMATOCRIT 27.2 % (42-52); MEAN CORPUSCULAR HGB 30.7 PG (27.0-31.0); MEAN CORPUSCULAR HGB CONC 34.2 G/DL (33.0-37.0); MEAN CORPUSCULAR VOLUME 89.7 FL (80.0-94.0); MEAN PLATELET VOLUME 7.9 FL (7.4-10.4); PLATELET COUNT 315 /CUMM (130-400); RBC DISTRIBUTION WIDTH 13.5 % (11.5-14.5); RED BLOOD CELL CT 3.03 /CUMM (4.70-6.10); WHITE BLOOD CELL COUNT 9.1 /CUMM (4.8-10.8)
--- NOTE | 2018-07-09 07:00 | PN- Housestaff ---
Subjective Follow-up For: Acute right lenticulostriate CVA Renal cell carcinoma status post left nephrectomy on 07/01/18 Retroperitoneal hematoma s/p surgery (stable) Post surgery ilius (improving). 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 Subjective: No overnight events. Patient remained afebrile,. Seen and examined this morning. Patient is reporting of abdominal pain, continuous, 8/10 and diffuse all over the belly. Patient is not able to pass gas. He denied nausea, vomiting, chills, fever, chest pain, palpitation and dysuria. Patient is getting his physiotherapy. Review of Systems Constitutional: Denies: chills, fever. EENTM: Reports: no symptoms. Cardiovascular: Denies: chest pain, palpitations. Respiratory: Denies: cough, short of breath, sputum production, wheezing. Gastrointestinal: Reports: abdominal pain, constipation. Denies: diarrhea, nausea, vomiting. Genitourinary: Denies: discharge, frequency, hematuria. Musculoskeletal: Reports: no symptoms. Neurological/Psychological: Reports: weakness. Denies: numbness, tingling. Objective Last 24 Hrs of Vital Signs/I&O Vital Signs Date Time Temp Pulse Resp B/P B/P Pulse O2 O2 Flow FiO2 Mean Ox Delivery Rate 07/09 0000 95 Room Air 07/09 0000 99.3 85 20 150/90 95 Room Air Room Air 07/08 2104 80 19 136/79 07/08 1600 97.9 86 24 136/80 95 Room Air 07/08 1332 90 132/76 07/08 0943 84 148/76 07/08 0943 86 148/76 Intake & Output 07/09 1600 07/09 0800 07/09 0000 Intake Total 200 100 Output Total 650 400 Balance -450 -300 Intake, Oral 200 100 Output, Urine 650 400 Physical Exam General Appearance: Alert, Oriented X3, Cooperative Skin: No Rashes Skin Temp/Moisture Exam: Warm/Dry Sepsis Skin Exam (color): Normal for Ethnicity HEENT: Atraumatic, PERRLA Neck: Supple Cardiovascular: Normal S1, Normal S2 Lungs: Clear to Auscultation Abdomen: Mild abdominal distension, Healing wound from his recent surgery. Neurological: Normal Speech, left arm weakness, able to squeez finger. , Left leg power improved able to move against garvity and little against resistance., No sensory deficit. Extremities: No Edema Assessment/Plan Assessment: 68 YO M with PMH of hypertension, remote history of cardiac contusion due to trauma, prior laryngeal cancer, and a renal cell carcinoma status post nephrectomy on 07/02/18. After surgery he was in his usual state of health when he noticed having facial droop and left-sided weakness. Considering patient's nephrectomy, TPA was contraindicated. Patient was treated conservatively in ICU. His CT scan head showed acute infarction involving the right lenticulostriate artery territory. Patient was transferred to ICU. Treating for following problems: Acute ischemic stroke: -Considering recent nephrectomy tPA was contraindicated, so will treat the patient in ICU conservatively. -Head end elevation -Carotid doppler showed 50-79% stenosis. Vascular surgery is aware of the patient and they recommended CTA prior to discharge and will follow him outpatient for endarterectomy in future. -Echocardiogram was done that showed no evidence of interatrial shunting with bubble study or thrombus. -Continue aspirin 81mg as recommended by neurology. -Continue high dose lipitor. -Continue aggressive physiotherapy. -Patient was complaining of bad taste probably due to sensory loss of facial nerve. -Neuro recommended inpatient rehab. -Patient was downgraded to telemetry floor. -Tele monitor showed brief tachy arrhythmia could be SVT, sinus tachy or A.fib can't be ruled out. Patient may need event monitor or anticoagulation in future. History of left renal cell carcinoma status post nephrectomy: -Presumed cured and no further rx needed for now. -His surgical wound is clean and healing. Acute kidney injury: -Patient had cystoscopy and right ureteric stent placement recently. possibly he is not getting enough free water as he is on nacter thick liquids. -We will monitor input and output -Avoid nephrotoxic medications -His creatinine is 1.4 today. Retroperitoneal hematoma s/p surgery (stable). -Patient's postsurgical retroperitoneal hematoma is stable. -Patient's H&H is stable, today his H&H is 9.3/27.2 -We will continue monitoring it. Post surgery ilius (improving): -Patient had postsurgical ileus due to Manipulation during surgery, retroperitoneal hematoma and possibly use of opiates. -Patient is tolerating heart healthy diet with pure and nectar thick consistency. -Patient is stiil complaing of abdominal pain and not able to pass gas possibly fecal impaction or subacute obstruction. We will do ESTRELLA and abdominal x-ray. Holding his diet. Transaminitis:(IMPROVING) -Possibly due to Lipitor use. -Today his AST/ALT is 47/68 -We will monitor his liver function tests. Left shoulder pain: -Patient is complaining of left shoulder pain on movement as he reported that he hurt himself while lifting weight 1 day before coming for surgery. -Possibly muscle strain or ligament sprain or rotator cuff tear. -Managed conservatively at this point with pain medication. H/O GERD: -Continue iv protonix, changed to po omeprazole. H/O HTN: -Cardiology recommended that we can resume his outpatient amlodipine. Dose changed to 10mg daily. Patient may need another antihypertensive medication. -Continue metoprolol 12.5 mg twice a day. -Hydralazine IV push as needed for elevated blood pressure. DVT prophylaxis: Mechanical and s/c heparin Code status: Full code. Problem List: 1. Ischemic stroke 2. Acute kidney injury 3. Transaminitis Pain Ratin Pain Location: abdomen Pain Goal: Remain pain free Pain Plan: pain pathway Tomorrow's Labs & Rationales: cbc/icu bundle
[2018-07-09 08:00] VITALS: BP 120/72
--- NOTE | 2018-07-09 10:08 | RADIOLOGY REPORT ---
EXAMINATION: XR ABDOMEN MULTIPLE VIEWS CLINICAL INDICATION: Ileus/subacute bowel obstruction. Patient complains include abdominal pain with inability to pass gas and constipation. COMPARISON: CT scan of the abdomen and pelvis dated 07/06/2018 TECHNIQUE: 5 views of the abdomen. FINDINGS: Again noted is the free intraperitoneal gas with free air noted under the right hemidiaphragm and left hemidiaphragm. This finding was present on the CT study of 07/06/2018. There is residual oral contrast present within the diverticuli of the descending and sigmoid colon as well as opacifying the lumen of the distal sigmoid colon and rectosigmoid region. Gas and fecal material is present throughout the remainder of the portions of the colon. No dilated gas-filled small bowel loops are noted. A small amount of gas is present within nondilated loops of distal ileum. There are are multiple surgical clips in the left lower abdomen, left pericentral region noted on the previous CT. There is a small left-sided pleural effusion, which was present on the prior CT study, along with increased density potentially representing associated compressive atelectasis. IMPRESSION: 1. Significant progression of the oral contrast present on 07/06/2018 through the colon, with the majority of the oral contrast now present in the rectosigmoid region. No findings to suggest high-grade bowel obstruction are present at this time. 2. Free intraperitoneal gas is again noted, this is overall stable compared to the prior CT study of 07/06/2018. 3. Left-sided pleural effusion and increased basilar density likely representing compressive atelectasis as visualized on the recent CT study.
--- NOTE | 2018-07-09 12:45 | PN- Cardiology ---
Subjective Subjective: Patient seen at bedside. Patient denies chest pain, palpitations, dyspnea. patient denies chest pain, palpitations, dyspnea. Patient reports that weakness is improved. Objective Vital Signs and I&Os Vital Signs Date Time Temp Pulse Resp B/P B/P Pulse O2 O2 Flow FiO2 Mean Ox Delivery Rate 07/09 1022 99 126/79 07/09 1022 99 126/79 07/09 0800 98.3 80 18 120/72 96 Room Air 07/09 0000 95 Room Air 07/09 0000 99.3 85 20 150/90 95 Room Air Room Air 07/08 2104 80 19 136/79 07/08 1600 97.9 86 24 136/80 95 Room Air 07/08 1332 90 132/76 Intake & Output 07/09 1600 07/09 0000 07/08 1600 07/08 0000 Intake Total 200 100 400 100 75 Output Total 650 400 450 350 350 Balance -450 -300 -50 -250 -275 Intake, Oral 200 100 400 100 75 Output, Urine 650 400 450 350 350 Physical Exam: General: no apparent distress HEENT: NCAT, NO JVD, +R carotid bruit Heart: s1s2, RRR, no MRG Lungs: CTA b/l Abd: soft, nt Ext: no lower extremity peripheral edema; +LUE edema, improved from yesterday Current Medications: Current Medications Sig/Lizeth Start time Last Medication Dose Route Stop Time Status Admin Acetaminophen 1,000 MG ONCE ONE 07/09 830 DC 07/09 N/A 1 UNIT IV 07/09 844 1022 Acetaminophen 0 .STK-MED ONE 07/08 1819 DC PO Acetaminophen 325 MG ONCE ONE 07/08 1815 DC 07/08 PO 07/08 181 1819 Amlodipine Besylate 10 MG DAILY 07/09 900 AC 07/09 PO 1022 Aspirin 81 MG DAILY 07/05 900 AC 07/09 PO 1022 Atorvastatin Calcium 80 MG 1700 07/02 1700 AC 07/08 PO 1629 Heparin Sodium 5,000 UNIT Q8 07/02 600 AC 07/09 (Porcine) SC 0613 Methylnaltrexone 12 MG Q48H 07/05 2000 DC 07/07 [place] SC 2117 Metoprolol Tartrate 12.5 MG BID 07/05 900 AC 07/09 PO 1022 Omeprazole 40 MG DAILY AC 07/07 0800 AC 07/09 PO 0614 Ondansetron HCl 4 MG Q6P PRN 07/01 1745 AC 07/05 IV 0336 Oxycodone HCl 5 MG Q4 HRS NEEDED PRN 07/01 2115 DC 07/04 PO 2201 Promethazine HCl 12.5 MG Q6P PRN 07/01 1745 DC 07/06 IV 07/08 1359 1735 Results Last 48 Hrs of Labs/Mics: Laboratory Tests 07/09/18 0500: Anion Gap 5, Estimated GFR 51 L, Glucose 94, Calcium 9.1, Phosphorus 3.8, Magnesium 2.2, Total Bilirubin 1.6 H, AST 47, ALT 68, Albumin 3.1 L, CBC w Diff NO MAN DIFF REQ, RBC 3.03 L, MCV 89.7, MCH 30.7, MCHC 34.2, RDW 13.5, MPV 7.9, Gran % 69.0, Lymphocytes % 13.4 L, Monocytes % 11.6 H, Eosinophils % 5.3 H, Basophils % 0.7, Absolute Granulocytes 6.3, Absolute Lymphocytes 1.2, Absolute Monocytes 1.0 H, Absolute Eosinophils 0.5, Absolute Basophils 0.1 07/08/18 0359: Anion Gap 7, Estimated GFR 55 L, Glucose 95, Calcium 9.0, Phosphorus 4.0, Magnesium 2.1, Total Bilirubin 1.8 H, AST 75 H, ALT 86 H, Albumin 3.0 L, CBC w Diff NO MAN DIFF REQ, RBC 3.17 L, MCV 89.4, MCH 30.8, MCHC 34.4, RDW 13.5, MPV 7.8, Gran % 70.8, Lymphocytes % 10.2 L, Monocytes % 13.6 H, Eosinophils % 5.2 H, Basophils % 0.2, Absolute Granulocytes 6.6 H, Absolute Lymphocytes 0.9 L, Absolute Monocytes 1.3 H, Absolute Eosinophils 0.5, Absolute Basophils 0 Recent Imaging Studies: telemetry personally reviewed: predominant rhythm is normal sinus rhythm, however overnight 2 episodes of nonsustained atrial tachyarrhythmia, ~150bpm, regular, narrow qrs, about 13 seconds differential includes regularized afib, atrial flutter, atrial tachyardia, avnrt Assessment/Plan Assessment/Plan 1. Renal cell cancer status post nephrectomy 07/01/18 now with acute CVA 2. History of hypertension 3. History of remote laryngeal cancer 4. Remote history of prior cardiac contusion/cardiac arrest due to trauma 5. Carotid artery disease - right ICA w hemodynamically significant disease 6. post nephrectomy retroperitoneal hematoma, stable Patient remains hemodynamically stable. Echocardiogram with no evidence of thrombus or shunt. Overnight telemetry w paroxysms of SVT as described above. Differential includes regularized afib, atrial flutter, atrial tachycardia, avnrt. Likely source of embolism remains R carotid artery. However possibility of thrombogenic tachyarrhythmia cannot be definitively ruled out at this time. Given stable but recent retroperitoneal hematoma, a reasonable strategy would be to continue with rhythm monitoring as an outpatient and start anticoagulation if afib or flutter is seen. However can consider anticoagulation prior to discharge if there is continued tachyarrhythmia on telemetry, or more definitive evidence of atrial fibrillation or flutter is seen prior to discharge. Continue telemetry? Yes
--- NOTE | 2018-07-09 13:29 | PN- Pulmonary ---
Subjective HPI/Critical Care Issues: Pt did have abd discomfot today Abd xray reviewed nil sig acute telemetry overnight did have episodes of tachy - afib vs aflutter, vs sinus tachy Objective Current Medications: Current Medications Sig/Lizeth Start time Last Medication Dose Route Stop Time Status Admin Acetaminophen 1,000 MG ONCE ONE 07/09 830 DC 07/09 N/A 1 UNIT IV 07/09 0844 1022 Acetaminophen 0 .STK-MED ONE 07/08 1819 DC PO Acetaminophen 325 MG ONCE ONE 07/08 181 DC 07/08 PO 07/08 1816 1819 Amlodipine Besylate 10 MG DAILY 07/09 900 AC 07/09 PO 1022 Aspirin 81 MG DAILY 07/05 09 AC 07/09 PO 1022 Atorvastatin Calcium 80 MG 1700 07/02 1700 AC 07/08 PO 1629 Heparin Sodium 5,000 UNIT Q8 07/02 06 AC 07/09 (Porcine) SC 0613 Methylnaltrexone 12 MG Q48H 07/05 2000 DC 07/07 [place] SC 2117 Metoprolol Tartrate 12.5 MG BID 07/05 900 AC 07/09 PO 1022 Omeprazole 40 MG DAILY AC 07/07 0800 AC 07/09 PO 0614 Ondansetron HCl 4 MG Q6P PRN 07/01 1745 AC 07/05 IV 0336 Oxycodone HCl 5 MG Q4 HRS NEEDED PRN 07/01 2115 DC 07/04 PO 2201 Promethazine HCl 12.5 MG Q6P PRN 07/01 1745 DC 07/06 IV 07/08 1359 1735 Vital Signs & I&O Last 24 Hrs of Vitals and I&O: Vital Signs Date Time Temp Pulse Resp B/P B/P Pulse O2 O2 Flow FiO2 Mean Ox Delivery Rate 07/09 1022 99 126/79 07/09 1022 99 126/79 07/09 0800 98.3 80 18 120/72 96 Room Air 07/09 0000 95 Room Air 07/09 0000 99.3 85 20 150/90 95 Room Air Room Air 07/08 2104 80 19 136/79 07/08 1600 97.9 86 24 136/80 95 Room Air 07/08 1332 90 132/76 Intake & Output 07/09 1600 07/09 0800 07/09 0000 Intake Total 200 100 Output Total 650 400 Balance -450 -300 Intake, Oral 200 100 Output, Urine 650 400 Impression/Plan Impression/Plan Impression/Plan: General: no apparent distress HEENT: NCAT, NO JVD, +R carotid bruit Heart: s1s2, RRR, no MRG Lungs: CTA b/l Abd: soft, nt Ext: no lower extremity peripheral edema; +LUE edema Left upper ext weakness This is a gentleman with history of hypertension, remote larngeal ca with prior surg and xrt to the larynx, remote history of trauma to the chest wall with cardiac arrest from cardiac contusion with prior fractured ribs, recent renal cell carcinoma, left nephrectomy done yesterday, no seem to have a postoperative acute right lenticulostriate artery stroke with left hemiparesis and facial droop. At this time is clinically stable. Issues include * Acute right lenticulostriate ischemic stroke in a patient with renal cell carcinoma, hypertension. TPA was contraindicated and he will be managed medically, Pt now has worsening carotid stenosis on the right side and needs eval, see vascular note. Does not need cea for few more weeks and needs out pt eval in few weeks with cta of the nect and pt to follow up with vascular in a month * Status post surgery for left-sided renal cell carcinoma, now with hematoma stable * Post op ileus, improving * Tacyarrythmia noted overnight and needs monitoring and need to consider systemic anticoag if this recurrs (stroke appears to be related to carotid dz) ( pt does have abd hematoma, recent stroke etc) * Dysphagia due to stroke needs necter thick diet * Hypertension * History of GERD/remote cured laryngeal ca, remote cardiac contusion history * So far in sinus rhythm, echo ok, no shunt, but has psvt * S/p surg now with post op hematoma Dr Arnett aware and will follow * Renal cell carcinoma now s/p surg (presumed cured and no further rx needed for now) * RECOMMENDATION * Keep the head of bed elevated, cont low dose betablocker, amlodapine * Watch on tele, extended monitoring vs linq device needs to be eval from cardio * Aspirin daily * Lipitor 80 mg daily TO tele pt needs acute inpatient rehab and is a candidate for [place] - manager of care to see
[2018-07-09 16:00] VITALS: BP 130/80
[2018-07-10] VITALS: BP 140/80
[2018-07-10 06:02] LABS: ABSOLUTE BASOPHIL COUNT 0 /CUMM (0.0-0.2); ABSOLUTE EOSINOPHIL COUNT 0.5 /CUMM (0.0-0.7); ABSOLUTE GRANULOCYTE CT 9.1 /CUMM (1.4-6.5); ABSOLUTE LYMPH COUNT 1.2 /CUMM (1.2-3.4); ABSOLUTE MONOCYTE COUNT 1.5 /CUMM (0.10-0.60); BASOPHIL % 0.3 % (0.0-2.0); EOSINOPHIL % 4.4 % (0-5); GRANULOCYTE % 73.1 % (42.2-75.2); HEMATOCRIT 29.3 % (42-52); MEAN CORPUSCULAR HGB 30.9 PG (27.0-31.0); MEAN CORPUSCULAR HGB CONC 34.3 G/DL (33.0-37.0); MEAN CORPUSCULAR VOLUME 89.9 FL (80.0-94.0); MEAN PLATELET VOLUME 7.4 FL (7.4-10.4); PLATELET COUNT 403 /CUMM (130-400); RBC DISTRIBUTION WIDTH 13.6 % (11.5-14.5); RED BLOOD CELL CT 3.25 /CUMM (4.70-6.10); WHITE BLOOD CELL COUNT 12.4 /CUMM (4.8-10.8)
--- NOTE | 2018-07-10 07:07 | PN- Housestaff ---
[facility]: Subjective Follow-up For: Acute right lenticulostriate CVA Renal cell carcinoma status post left nephrectomy on 07/01/18 S/p surg now with post op hematoma Dr Arnett aware and will follow History of hypertension History of remote laryngeal cancer Remote history of prior cardiac contusion/cardiac arrest due to trauma Retroperitoneal hematoma s/p surgery (stable) Post surgery ilius (improving). Transaminitis (improving) Tele-Events Since Last Visit: No overnight events. Subjective: No overnight events. Patient remained afebrile but patient is seen and examined this morning. He denied any chest, abdominal pain and nausea, vomiting, fever and dysuria. Patient reported that he had bowel movement last night and he is eating and drinking fine. His left leg power has been improved and he is able to walk with assistance. His left arm is still weak and he is able to make a fist. Review of Systems Constitutional: Denies: chills, fever, weakness. EENTM: Reports: no symptoms. Cardiovascular: Denies: chest pain, palpitations, syncope. Respiratory: Denies: cough, short of breath, sputum production, wheezing. Gastrointestinal: Denies: abdominal pain, diarrhea, nausea, vomiting. Genitourinary: Reports: no symptoms. Musculoskeletal: Reports: no symptoms. Neurological/Psychological: Reports: see HPI. Objective Last 24 Hrs of Vital Signs/I&O Vital Signs Date Time Temp Pulse Resp B/P B/P Pulse O2 O2 Flow FiO2 Mean Ox Delivery Rate 07/10 0847 88 118/80 07/10 0800 98.9 86 20 160/94 96 Room Air 07/10 0000 98.2 80 20 140/80 95 Room Air Room Air 07/10 0000 95 Room Air 07/09 2147 97.7 78 20 142/82 07/09 1600 98 Room Air 07/09 1600 98.2 84 18 130/80 96 Room Air Intake & Output 07/10 1600 07/10 0800 / 0000 Intake Total 100 300 Output Total 300 200 Balance -200 100 Intake, Oral 100 300 Number 1 Bowel Movements Output, Urine 300 200 Physical Exam General Appearance: Alert, Oriented X3, Cooperative Skin: No Rashes Skin Temp/Moisture Exam: Warm/Dry Sepsis Skin Exam (color): Normal for Ethnicity HEENT: Atraumatic, PERRLA, EOMI Neck: Supple Cardiovascular: Normal S1, Normal S2 Lungs: Clear to Auscultation Abdomen: Soft, No Tenderness Neurological: Normal Speech, Sensation Intact Extremities: No Edema Assessment/Plan Assessment: Acute ischemic stroke: -Considering recent nephrectomy tPA was contraindicated, so will treat the patient in ICU conservatively. -Head end elevation -Carotid doppler showed 50-79% stenosis. Vascular surgery is aware of the patient and they recommended CTA prior to discharge and will follow him outpatient for endarterectomy in future. -Echocardiogram was done that showed no evidence of interatrial shunting with bubble study or thrombus. -Cardiology recommended to continue with telemetry while an inpatient. -Continue aspirin 81mg as recommended by neurology. -Continue high dose lipitor. -Patient is getting physical therapy. -Neuro recommended inpatient rehab. -Patient was downgraded to telemetry floor. History of left renal cell carcinoma status post nephrectomy: -presumed cured and no further rx needed for now. -His surgical wound is clean and healing. Acute kidney injury:(IMPROVING) -Patient had cystoscopy and right ureteric stent placement recently. Possibly his elevated creatinine level is due to low clearance considering his left nephrectomy. -Avoid nephrotoxic medications -His creatinine is 1.3 today. Retroperitoneal hematoma s/p surgery (stable). -Patient's postsurgical retroperitoneal hematoma is stable. -Patient's H&H is stable, today his H&H is 10.1/29.3 -We will continue monitoring it. Post surgery ilius (improving): -Patient had postsurgical ileus due to Manipulation during surgery, retroperitoneal hematoma and possibly use of opiates. -Patient is tolerating heart healthy diet with pure and nectar thick consistency. -Patient is going for modified barium swallow test today. Transaminitis:(IMPROVING) -Possibly due to Lipitor use. -Today his AST/ALT is 46/62 -We will monitor his liver function tests. Left shoulder pain: -Patient is complaining of left shoulder pain on movement as he reported that he hurt himself while lifting weight 1 day before coming for surgery. -Possibly muscle strain or ligament sprain or rotator cuff tear. -Managed conservatively at this point with pain medication. Tachyarrhythmia -Patient had one episode of tachyarrhythmia possible supraventricular, sinus or A. fib. -Cardiology recommended 21 day event monitor as an outpatient and start anticoagulation if afib or flutter is seen. Additionally, a LINQ can be considered if further long-term rhythm monitoring is indicated. H/O GERD: -Continue po protonix. H/O HTN: -Continue amlodipine 10 mg, reduced to 5mg as recommended by . -Continue metoprolol 25 mg twice a day. Diet: - Up is recommended mechanical ground and thin liquid. DVT prophylaxis: Mechanical and s/c heparin Code status: Full code. Problem List: 1. Transaminitis 2. Ischemic stroke 3. Acute kidney injury Pain Ratin Pain Location: NONE Pain Goal: Remain pain free Pain Plan: PAIN PATHWAY Tomorrow's Labs & Rationales: CBC/ICU BUNDLE [facility] 07/10/18 1355: Attending MD Review Statement Attending Statement Attending Assessment/Plan: Stable and no sig tachyarrthymia General: no apparent distress HEENT: NCAT, NO JVD, +R carotid bruit Heart: s1s2, RRR, no MRG Lungs: CTA b/l Abd: soft, nt Ext: no lower extremity peripheral edema; +LUE edema Left upper ext weakness This is a gentleman with history of hypertension, remote larngeal ca with prior surg and xrt to the larynx, remote history of trauma to the chest wall with cardiac arrest from cardiac contusion with prior fractured ribs, recent renal cell carcinoma, left nephrectomy done yesterday, no seem to have a postoperative acute right lenticulostriate artery stroke with left hemiparesis and facial droop. At this time is clinically stable. Issues include * Acute right lenticulostriate ischemic stroke in a patient with renal cell carcinoma, hypertension. TPA was contraindicated and he will be managed medically, Pt now has worsening carotid stenosis on the right side and needs eval, see vascular note. Does not need cea for few more weeks and needs out pt eval in few weeks with cta of the nect and pt to follow up with vascular in a month * Status post surgery for left-sided renal cell carcinoma, now with hematoma stable * Post op ileus, improving * Tacyarrythmia noted overnight and needs monitoring and need to consider systemic anticoag if this recurrs (stroke appears to be related to carotid dz) ( pt does have abd hematoma, recent stroke etc) * Dysphagia due to stroke needs necter thick diet * Hypertension * History of GERD/remote cured laryngeal ca, remote cardiac contusion history * So far in sinus rhythm, echo ok, no shunt, but has psvt * S/p surg now with post op hematoma Dr Arnett aware and will follow * Renal cell carcinoma now s/p surg (presumed cured and no further rx needed for now) * RECOMMENDATION * Keep the head of bed elevated, cont low dose betablocker, amlodapine * Watch on tele, increase betablocker and reduce amlodapine if bp reduces * Aspirin daily * Lipitor 80 mg daily TO tele pt needs acute inpatient rehab and is a candidate for [place] -
[2018-07-10 08:00] VITALS: BP 160/94
--- NOTE | 2018-07-10 08:07 | PN- Urology ---
Surgical Brief Attending Note Brief Attending Note: Overall stable and improving: pain well controlled: VSS afebrile: labs acceptable. Pt voiding well.Tolerating regular diet. Mobility still limited on left side. Pathology still pending: Plan for rehab appreciated.
--- NOTE | 2018-07-10 12:17 | RADIOLOGY REPORT ---
EXAMINATION: XR MODIFIED BARIUM SWALLOW CLINICAL INFORMATION: 68-year-old male with history of recent stroke and difficulty swallowing. Past history of abnormal modified barium swallow study done on 07/04/2018. For follow-up. COMPARISON: Modified barium swallow done on 07/04/2018. TECHNIQUE: Modified barium swallow study was performed with speech therapist. FINDINGS: Previously documented penetration without sensation to the vocal folds shows interval resolution. No evidence of any aspiration seen, unchanged. Note is made of retention of food particles within the vallecula with different food consistencies. Improved with chin tuck maneuver. FLUOROSCOPY TIME: 3 minutes and 4 seconds. NUMBER OF IMAGES: 22 images. IMPRESSION: Previously documented penetration is no longer reproduced. Retention of food particles within the vallecula, however, is noted, appears improved with chin tuck maneuver. Full procedural detail as well as the findings will be dictated by the speech therapist.
--- NOTE | 2018-07-10 12:25 | PN- Cardiology ---
Subjective Subjective: Patient seen at bedside. He reports that he continues to feel better every day. Denies chest pain, palpitations, dyspnea, PND/orthopnea. Objective Vital Signs and I&Os Vital Signs Date Time Temp Pulse Resp B/P B/P Pulse O2 O2 Flow FiO2 Mean Ox Delivery Rate 07/10 847 88 118/80 07/10 800 Room Air 07/10 08 98.9 86 20 160/94 96 Room Air 07/10 0000 98.2 80 20 140/80 95 Room Air Room Air 07/10 0000 95 Room Air 07/09 2147 97.7 78 20 142/82 07/09 1600 98 Room Air 07/09 1600 98.2 84 18 130/80 96 Room Air Intake & Output 07/10 0000 07/09 1600 07/09 0000 Intake Total 100 300 340 200 100 Output Total 300 200 300 650 400 Balance -200 100 40 -450 -300 Intake, IV 100 Intake, Oral 100 300 240 200 100 Number 1 Bowel Movements Output, Urine 300 200 300 650 400 Physical Exam: General: no apparent distress HEENT: NCAT, NO JVD, +R carotid bruit Heart: s1s2, RRR, no MRG Lungs: CTA b/l Abd: soft, nt Ext: no lower extremity peripheral edema; +mild LUE edema, improved from yesterday Current Medications: Current Medications Sig/Lizeth Start time Last Medication Dose Route Stop Time Status Admin Amlodipine Besylate 10 MG DAILY 07/09 900 AC 07/10 PO 0847 Aspirin 81 MG DAILY 07/05 900 AC 07/10 PO 0844 Atorvastatin Calcium 80 MG 1700 07/02 1700 AC 07/09 PO 1702 Heparin Sodium 5,000 UNIT Q8 07/02 600 AC 07/10 (Porcine) SC 0656 Metoprolol Tartrate 12.5 MG BID 07/05 900 AC 07/10 PO 0844 Omeprazole 40 MG DAILY AC 07/07 800 AC 07/10 PO 0655 Ondansetron HCl 4 MG Q6P PRN 07/01 1745 AC 07/05 IV 0336 Results Last 48 Hrs of Labs/Mics: Laboratory Tests 07/10/18 0515: Anion Gap 9, Estimated GFR 55 L, Glucose 95, Calcium 9.3, Phosphorus 3.8, Magnesium 2.4 H, Total Bilirubin 2.3 H, Direct Bilirubin 0.4, AST 46, ALT 62, Lactate Dehydrogenase 1042 H, Albumin 3.3 L, CBC w Diff NO MAN DIFF REQ, RBC 3.25 L, MCV 89.9, MCH 30.9, MCHC 34.3, RDW 13.6, MPV 7.4, Gran % 73.1, Lymphocytes % 9.9 L, Monocytes % 12.3 H, Eosinophils % 4.4, Basophils % 0.3, Absolute Granulocytes 9.1 H, Absolute Lymphocytes 1.2, Absolute Monocytes 1.5 H, Absolute Eosinophils 0.5, Absolute Basophils 0, Retic Count 3.37 H 07/09/18 0500: Anion Gap 5, Estimated GFR 51 L, Glucose 94, Calcium 9.1, Phosphorus 3.8, Magnesium 2.2, Total Bilirubin 1.6 H, AST 47, ALT 68, Albumin 3.1 L, CBC w Diff NO MAN DIFF REQ, RBC 3.03 L, MCV 89.7, MCH 30.7, MCHC 34.2, RDW 13.5, MPV 7.9, Gran % 69.0, Lymphocytes % 13.4 L, Monocytes % 11.6 H, Eosinophils % 5.3 H, Basophils % 0.7, Absolute Granulocytes 6.3, Absolute Lymphocytes 1.2, Absolute Monocytes 1.0 H, Absolute Eosinophils 0.5, Absolute Basophils 0.1 Recent Imaging Studies: Telemetry personally reviewed: Normal sinus rhythm, no further episodes of tachycardia/nonsustained SVT Assessment/Plan Assessment/Plan 1. Renal cell cancer status post nephrectomy 07/01/18 now with acute CVA 2. History of hypertension 3. History of remote laryngeal cancer 4. Remote history of prior cardiac contusion/cardiac arrest due to trauma 5. Carotid artery disease - right ICA w hemodynamically significant disease 6. post nephrectomy retroperitoneal hematoma, stable 7. Nonsustained SVT 8. Hypertension Patient remains hemodynamically stable. Echocardiogram with no evidence of thrombus or shunt. No further episodes of SVT on telemetry. Likely source of embolism remains R carotid artery. Given stable but recent retroperitoneal hematoma and a known likely embolic source, a reasonable strategy at this point would be rhythm monitoring with 21 day event monitor as an outpatient and start anticoagulation if afib or flutter is seen. Additionally, a LINQ can be considered if further long-term rhythm monitoring is indicated. Continue with telemetry while an inpatient. Continue with aspirin, statin. BP was elevated today. Can increase metoprolol to 25 mg p.o. twice daily. Continue telemetry? Yes
--- NOTE | 2018-07-10 12:33 | Discharge Summary ---
Hospital Course Allergies: Coded Allergies: No Known Allergies (06/30/18) Discharge Instructions General Discharge Information Code Status: Full Code
[2018-07-10] MEDS ORDERED: ATORVASTATIN CA80 M1 PO (12:39)
[2018-07-10] MEDS ORDERED: ASPIRIN81 M4 PO (12:39)
[2018-07-10] MEDS ORDERED: NORVASC10 M1 PO (12:39)
[2018-07-10] MEDS ORDERED: NEXIUM40 M1 PO (12:39)
--- NOTE | 2018-07-10 12:52 | Patient Discharge Instructions ---
Discharge Instructions General Discharge Information You were seen/treated for: Ischemic stroke (left hemiplegia with left facial asymmetry) Acute kidney injury Retroperitoneal hematoma s/p surgery Transaminitis Left renal cell carcinoma status post nephrectomy. Watch for these problems: Nausea, vomiting, abdominal pain, dizziness, chest pain, palpitation, numbness, tingling, severe headache, constipation and worsening weakness of left side of the body. Special Instructions: Follow-up with your primary care physician in one week. -Follow-up with your urologist in 1 week. -Follow-up with neurology in 1 week. -Follow-up with cardiology and talk about 21 day event monitor as an outpatient and start anticoagulation if afib or flutter is seen. Additionally, a LINQ can be considered if further long-term rhythm monitoring is indicated. Diet Recommended Diet: Heart Healthy Additional DIET Information: Mechanical soft with thin liquid to prevent aspiration pneumonia. Activity Activity Self Limited: Yes Acute Coronary Syndrome Inclusion Criteria At DC or during hospital stay patient has or had the following: ACS DIAGNOSIS No Discharge Core Measures Meds if any: Prescribed or Continued at Discharge Meds if any: NOT Prescribed or Continued at Discharge Congestive Heart Failure Inclusion Criteria At DC or during hospital stay patient has or had the following: CHF DIAGNOSIS No Discharge Core Measures Meds if any: Prescribed or Continued at Discharge Meds if any: NOT Prescribed or Continued at Discharge Cerebrovascular accident Inclusion Criteria At DC or during hospital stay patient has or had the following: CVA/TIA Diagnosis Yes Discharge Core Measures Meds if any: Prescribed or Continued at Discharge Antithrombotic No Statin (required if LDL =>70) Yes Anticoagulant Yes Meds if any: NOT Prescribed or Continued at Discharge Comment Recent surgery Venous thromboembolism Inclusion Criteria VTE Diagnosis No VTE Type NONE VTE Confirmed by (Test) NONE Discharge Core Measures - Per Current guidelines, there needs to be overlap - treatment for the first 5 days of Warfarin therapy. - If discharged on Warfarin prior to 5 days of - overlap therapy, the patient will need to be - assessed for post discharge needs including - *Post discharge parental anticoagulation - *Warfarin and/or parental anticoagulation education - *Follow up date to check INR post discharge At least 5 days overlap therapy as Inpatient No Meds if any: Prescribed or Continued at Discharge Note: Overlap Therapy is Warfarin and Anticoagulant Meds if any: NOT Prescribed or Continued at Discharge
[2018-07-10] MEDS ORDERED: AMLODIPINE BESYL5 M1 PO (14:02)
--- NOTE | 2018-07-10 14:08 | Discharge Summary ---
Visit Information Visit Dates Admission Date: 07/01/18 Discharge Date: 07/11/18 Hospital Course Course Attending Physician: Mona SHI,Jalen Rivera Primary Care Physician: Iain Juarez MD Consulting Request: 1 Consulting Specialty: Cardiology Consulting Physician: Dr. Gonzáles Reason for Consult: Stroke Consulting Request: 2 Consulting Specialty: Neurology Consulting Physician: Reason for Consult: Acute ischemic stroke Hospital Course: 68 YO M with PMH of hypertension, remote history of cardiac contusion due to trauma, prior laryngeal cancer, and a renal cell carcinoma status post nephrectomy on 07/02/18. After surgery he was in his usual state of health when he noticed having facial droop and left-sided weakness. Considering patient's nephrectomy, TPA was contraindicated. Patient was treated conservatively in ICU. His CT scan head showed acute infarction involving the right lenticulostriate artery territory. Patient was transferred to ICU. The following is his management in ICU: Acute ischemic stroke Patient was treated conservatively for acute ischemic stroke in ICU. First 48 hours permissive hypertension was allowed for better perfusion of ischemic part of the brain. Carotid ultrasound was done that showed 50-79% stenosis on right side. Considering patient's acute kidney injury and left nephrectomy CTA/MRA was not done. Neurology consulted. He was started on aspirin 81mg and discharged with 162mg daily, high intensity statin (atrovastatin) started. Echocardiogram was done with bubble study that ruled out any shunt or thrombus in atrium. skid wrapper showed possible SVT, probably benefits linq monitor and not a candidate for anticoagulation given retroperitoneal hematoma. Vascular surgery recommended CTA before endarterectomy to prevent stroke after discharge. Ongoing PT/OT therapy. Failed swallow eval initally, so proceed with barium swallow and slowly upgraded diet, currently on mechanical ground/thin liquids. Left renal cell carcinoma s/p nephrectomy Surgical site remained clean and and its healing. Postoperative course complicated with retroperitoneal hematoma, remained stable so far. Urology actively followed through out. Acute kidney injury 0.9 at admission, increased to 1.3 and later improved. Needs follow up. BUN/Cr on the day of discharge is 31/1.2. Left shoulder pain Patient is complaining of left shoulder pain on movement. He is being managed conservatively with ice packs. H/O GERD Patient received IV Protonix initially later on changed to by mouth omeprazole. H/O HTN Currently on amlodipine and metoprolol. DVT prophylaxis Mechanical and s/c heparin Code status Full code. Complications: s/p surgery had stroke, retroperitoneal hematoma. Allergies: Coded Allergies: soybean (Mild, facial swelling 07/11/18) Significant Procedures: CXR at admission IMPRESSION: No evidence for acute disease. Head and cervical spine CT scan on 07/02/18 1. No intracranial hemorrhage. 2. Findings consistent with acute infarction involving the right lenticulostriate artery territory. 1. No acute fracture or traumatic subluxation of the cervical spine. The cervical vertebra have well preserved height and alignment. 2. Multilevel discovertebral degenerative changes of the cervical spine. The disc degeneration is worst at C5-C6, and there is a small posterior disc osteophyte compresses at this level. However, no significant narrowing of the central spinal canal. 3. The uncovertebral joint hypertrophy at C3-C4 and C5-C6 causes bilateral neural foraminal stenosis at these levels. ECHO on 07/03/18 CONCLUSIONS Normal global left ventricular size, wall thickness, systolic function with no obvious regional wall motion abnormalities. Abnormal relaxation filling pattern of the left ventricle for age (stage 1 diastolic dysfunction). The left atrium is normal in size. The interatrial septum is intact. There is no evidence of interatrial shunting by agitated saline contrast injection. The mitral valve is normal in structure and function. Diffuse thickening (sclerosis) of the aortic valve cusps without reduced excursion. No aortic stenosis. Pulmonary artery systolic pressure is normal. Venous doppler on 07/02/18 IMPRESSION: No evidence for left upper extremity deep vein thrombosis. Carotid doppler on 07/02/18 FINDINGS: Right side: 1. Mild to moderate amount of heterogeneous plaque is seen in the ECA/ICA region. 2. The common carotid artery velocity is 80 cm/s. 3. The internal carotid artery velocities are 228 cm/s systolic and 97 cm/s diastolic. 4. The external carotid artery velocity is 249 cm/s. Left side: 1. Mild amount of heterogeneous plaque is seen in the ECA/ICA region. 2. The common carotid artery velocity is 86 cm/s. 3. The internal carotid artery velocities are 70 cm/s systolic and 20 cm/s diastolic. 4. The external carotid artery velocity is 114 cm/s. ADDITIONAL FINDINGS: The vertebral arteries show antegrade flow. IMPRESSION: 1. RIGHT: Hemodynamically significant stenosis of the proximal right internal carotid artery corresponding to a 50-79% stenosis by velocity criteria. Velocity is significantly increased from November 2013 where it measured 81 cm/s within the proximal right internal carotid artery. 2. LEFT: Minimal, nonhemodynamically significant stenosis of the proximal left internal carotid artery corresponding to a 0-49% stenosis by velocity criteria. 3. Elevated velocity of 249 cm/s within the right external carotid artery consistent with stenosis. Modified barium swallow on 07/04/18 IMPRESSION: Abnormal modified barium swallow study. Full procedural details and findings will be dictated by the speech therapist. Modified barium swallow on 07/10/18 IMPRESSION: Previously documented penetration is no longer reproduced. Retention of food particles within the vallecula, however, is noted, appears improved with chin tuck maneuver. Full procedural detail as well as the findings will be dictated by the speech therapist. Abdominal xary on 07/09/18 IMPRESSION: 1. Significant progression of the oral contrast present on 07/06/2018 through the colon, with the majority of the oral contrast now present in the rectosigmoid region. No findings to suggest high-grade bowel obstruction are present at this time. 2. Free intraperitoneal gas is again noted, this is overall stable compared to the prior CT study of 07/06/2018. 3. Left-sided pleural effusion and increased basilar density likely representing compressive atelectasis as visualized on the recent CT study. Abdominal and pelvis CT 07/06/18 IMPRESSION: 1. Status post recent left nephrectomy. The left retroperitoneal hematoma is unchanged compared to 07/04/2018. No new hemorrhage. 2. The hemoperitoneum within the pelvis has decreased compared to 07/04/2018. 3. Postoperative pneumoperitoneum. 4. Pancolonic diverticulosis. 5. Persistent small left pleural effusion with compressive atelectasis of left lower lobe. Pertinent Lab Results: as above Disposition Summary Disposition Principal Diagnosis: Left nephrectomy for renal cell cancer Acute ischemic stroke Additional Diagnosis: Retroperitoneal hematoma HTN Discharge Disposition: SNF Discharge Instructions General Discharge Information Code Status: Full Code Patient's Diet: Heart healthy diet On mechanical ground and thin liquids Patient's Activity: as tolerated Follow-Up Instructions/Appts: Please follow up with your PCP in a week Please follow up with your Neurologist in a week Please follow up with admittance attendant in a week Medications at Discharge Discharge Medications: Stop taking the following medications: Amlodipine Besylate (Amlodipine Besylate) (Unknown Strength) TABLET ORAL DAILY Qty = 30 Continue taking these medications: Metoprolol Succinate (Metoprolol Succinate) 25 MG TAB 1 Tablet ORAL TWICE DAILY Comments: Last Taken: 07/11/18 Time: 0922 AM Start taking the following new medications: Aspirin (Aspirin*) 81 MG TAB.CHEW 2 Tablet ORAL DAILY Qty = 30 No Refills Comments: Last Taken: 07/11/18 Time: 10 AM Atorvastatin Calcium (Atorvastatin Calcium) 80 MG TABLET 1 Tablet ORAL 5 PM Qty = 30 No Refills Comments: Last Taken: 07/10/18 Time: 5 PM Amlodipine Besylate (Amlodipine Besylate) 5 MG TABLET 1 Tablet ORAL DAILY Qty = 30 No Refills Comments: Last Taken: 07/11/18 Time: 0922 AM The following medications have been changed: Old: Esomeprazole (Nexium) 40 MG CAPSULE.DR 1 Capsule ORAL DAILY BEFORE BREAKFAST Qty = 30 New: Esomeprazole Magnesium (Nexium) 20 MG CAPSULE.DR 1 Capsule ORAL DAILY Qty = 30 Comments: Last Taken: 07/11/18 Time: 0545 AM RECEIVED OMEPRAZOLE [facility]. Copies To: Jalen Dunn MD Attending MD Review Statement Documenting Attending: Jalen Dunn MD
[2018-07-10 16:00] VITALS: BP 110/70
[2018-07-11] VITALS: BP 140/80
[2018-07-11 04:57] LABS: ABSOLUTE BASOPHIL COUNT 0.1 /CUMM (0.0-0.2); ABSOLUTE EOSINOPHIL COUNT 0.6 /CUMM (0.0-0.7); ABSOLUTE GRANULOCYTE CT 8.8 /CUMM (1.4-6.5); ABSOLUTE LYMPH COUNT 1.5 /CUMM (1.2-3.4); BASOPHIL % 0.8 % (0.0-2.0); EOSINOPHIL % 4.9 % (0-5); GRANULOCYTE % 73.1 % (42.2-75.2); HEMATOCRIT 28.9 % (42-52); MEAN CORPUSCULAR HGB 30.9 PG (27.0-31.0); MEAN CORPUSCULAR HGB CONC 34.3 G/DL (33.0-37.0); MEAN CORPUSCULAR VOLUME 90.2 FL (80.0-94.0); MEAN PLATELET VOLUME 8.6 FL (7.4-10.4); PLATELET COUNT 419 /CUMM (130-400); RBC DISTRIBUTION WIDTH 13.8 % (11.5-14.5)
--- NOTE | 2018-07-11 07:07 | PN- Housestaff ---
Subjective Follow-up For: Acute right lenticulostriate CVA Renal cell carcinoma status post left nephrectomy on 07/01/18 S/p surg now with post op hematoma Dr Arnett aware and will follow History of hypertension History of remote laryngeal cancer Remote history of prior cardiac contusion/cardiac arrest due to trauma Retroperitoneal hematoma s/p surgery (stable) Post surgery ilius (improving). Transaminitis (improving) Tele-Events Since Last Visit: No overnight events on radiation monitor. Subjective: No overnight events. Patient remained afebrile. See and examined this morning. Patient is feeling much improved. He denies chest pain, palpitation, nausea, vomiting, abdominal pain dysuria. He is eating drinking normally. His left leg power has been improved now he can move his leg against resistance. Patient's left hand power is improving of the his proximal left remained weak And not able to move it. Patient is able to move his hand at wrist joint. Review of Systems Constitutional: Denies: chills, fever. EENTM: Reports: no symptoms. Cardiovascular: Denies: chest pain, palpitations, syncope. Respiratory: Denies: cough, short of breath, stridor, wheezing. Gastrointestinal: Denies: abdominal pain, constipation, diarrhea, nausea, vomiting. Genitourinary: Reports: no symptoms. Neurological/Psychological: Reports: see HPI. Objective Last 24 Hrs of Vital Signs/I&O Vital Signs Date Time Temp Pulse Resp B/P B/P Pulse O2 O2 Flow FiO2 Mean Ox Delivery Rate 07/11 0922 94 140/76 07/11 0920 98 140/76 07/11 0754 98.0 74 18 140/76 97 Room Air 07/11 0000 95 Room Air 07/11 0000 99.0 77 16 140/80 95 Room Air 07/10 2121 84 19 126/70 07/10 1600 98.1 98 22 110/70 96 Room Air Intake & Output 07/11 1600 10 0800 07/11 0000 Intake Total 50 240 Output Total 500 400 Balance -450 -160 Intake, Oral 50 240 Output, Urine 500 400 Physical Exam General Appearance: Alert, Oriented X3, Cooperative Skin: No Rashes Skin Temp/Moisture Exam: Warm/Dry Sepsis Skin Exam (color): Normal for Ethnicity HEENT: Atraumatic, PERRLA, EOMI Neck: Supple Cardiovascular: Normal S1, Normal S2 Lungs: Clear to Auscultation Abdomen: Soft, No Tenderness Neurological: Normal Speech, Sensation Intact Extremities: No Edema Assessment/Plan Assessment: Acute ischemic stroke: -Considering recent nephrectomy tPA was contraindicated, so will treat the patient in ICU conservatively. -Head end elevation -Patient will get his CTA later as outpatient while following vascular surgery. -Echocardiogram was done that showed no evidence of interatrial shunting with bubble study or thrombus. -Cardiology recommended to continue with telemetry while an inpatient. -Continue aspirin 162mg as recommended by neurology. -Continue high dose lipitor. -Patient is getting physical therapy. -Patient will go to inpatient rehab today. History of left renal cell carcinoma status post nephrectomy: -presumed cured and no further rx needed for now. -His surgical wound is clean and healing. Acute kidney injury:(IMPROVING) -Patient had cystoscopy and right ureteric stent placement recently. Possibly his elevated creatinine level is due to low clearance considering his left nephrectomy. -Avoid nephrotoxic medications -His creatinine is 1.2 today. Retroperitoneal hematoma s/p surgery (stable). -Patient's postsurgical retroperitoneal hematoma is stable. -Patient's H&H is stable, today his H&H is 9.9/28.9 -We will continue monitoring it. Post surgery ilius (improving): -Patient had postsurgical ileus due to Manipulation during surgery, retroperitoneal hematoma and possibly use of opiates. -Patient is on mechanical soft and thin liquids Transaminitis:(IMPROVING) -Possibly due to Lipitor use. -Today his AST/ALT is 47/63 -We will monitor his liver function tests. Left shoulder pain: -Patient is complaining of left shoulder pain on movement as he reported that he hurt himself while lifting weight 1 day before coming for surgery. -Possibly muscle strain or ligament sprain or rotator cuff tear. -Managed conservatively at this point with pain medication. Tachyarrhythmia -Patient had one episode of tachyarrhythmia possible supraventricular, sinus or A. fib. -Cardiology recommended 21 day event monitor as an outpatient and start anticoagulation if afib or flutter is seen. Additionally, a LINQ can be considered if further long-term rhythm monitoring is indicated. H/O GERD: -Continue po protonix. H/O HTN: -Continue amlodipine 10 mg, reduced to 5mg as recommended by . -Continue metoprolol 25 mg twice a day. Diet: -Speech therapist recommended mechanical ground and thin liquid. DVT prophylaxis: Mechanical and s/c heparin Code status: Full code. Problem List: 1. Transaminitis 2. Acute kidney injury 3. Ischemic stroke Pain Ratin Pain Location: none Pain Goal: Remain pain free Pain Plan: pain pathway Tomorrow's Labs & Rationales: none Consulting Request: Consulting Specialty: Neurology Consulting Physician: Reason for Consult: Acute ischemic stroke
[2018-07-11 07:54] VITALS: BP 140/76
--- NOTE | 2018-07-11 09:46 | PN- Cardiology ---
Subjective Subjective: Patient is doing well today. Offers no new complaints. Objective Vital Signs and I&Os Vital Signs Date Time Temp Pulse Resp B/P B/P Pulse O2 O2 Flow FiO2 Mean Ox Delivery Rate 07/11 922 94 140/76 07/11 0920 98 140/76 07/11 0754 98.0 74 18 140/76 97 Room Air 07/11 0000 95 Room Air 07/11 0000 99.0 77 16 140/80 95 Room Air 07/10 2121 84 19 126/70 07/10 1600 98.1 98 22 110/70 96 Room Air Intake & Output 07/11 1600 07/11 0807/11 0000 07/10 1600 07/10 0000 Intake Total 50 240 260 100 300 Output Total 500 400 400 300 200 Balance -450 -160 -140 -200 100 Intake, IV 20 Intake, Oral 50 240 240 100 300 Number 1 Bowel Movements Output, Urine 500 400 400 300 200 Physical Exam: General: no apparent distress. Alert. Eyes: No obvious scleral icterus. HEENT: No jugular venous distention or abnormal jugular venous pulsations. Cardiovascular: Normal intensity S1/S2. Regular Respiratory: Lungs clear to auscultation bilaterally. Abdomen: Soft, nontender with no guarding or rebound tenderness. Musculoskeletal: No clubbing or cyanosis noted Skin: warm Neurologic: Left-sided deficit noted Current Medications: Current Medications Sig/Lizeth Start time Last Medication Dose Route Stop Time Status Admin Amlodipine Besylate 5 MG DAILY 07/11 900 AC 07/11 PO 09 Amlodipine Besylate 10 MG DAILY 07/09 900 DC 07/10 PO 0847 Aspirin 81 MG DAILY 07/05 900 AC 07/11 PO 0919 Atorvastatin Calcium 80 MG 1700 07/02 1700 AC 07/10 PO 1653 Heparin Sodium 5,000 UNIT Q8 07/02 06 AC 07/11 (Porcine) SC 0541 Metoprolol Tartrate 25 MG BID 07/10 2100 AC 07/11 PO 0922 Metoprolol Tartrate 12.5 MG BID 07/05 900 DC 07/10 PO 0844 Omeprazole 40 MG DAILY AC 07/07 08 AC 07/11 PO 0542 Ondansetron HCl 4 MG Q6P PRN 07/01 1745 AC 07/05 IV 0336 Results Last 48 Hrs of Labs/Mics: Laboratory Tests 07/11/18 0356: Anion Gap 6, Estimated GFR > 60, Glucose 109 H, Calcium 9.1, Phosphorus 3.6, Magnesium 2.4 H, Total Bilirubin 1.6 H, AST 47, ALT 63, Albumin 3.3 L, CBC w Diff NO MAN DIFF REQ, RBC 3.20 L, MCV 90.2, MCH 30.9, MCHC 34.3, RDW 13.8, MPV 8.6, Gran % 73.1, Lymphocytes % 12.7 L, Monocytes % 8.5, Eosinophils % 4.9, Basophils % 0.8, Absolute Granulocytes 8.8 H, Absolute Lymphocytes 1.5, Absolute Monocytes 1.0 H, Absolute Eosinophils 0.6, Absolute Basophils 0.1 07/10/18 0515: Anion Gap 9, Estimated GFR 55 L, Glucose 95, Calcium 9.3, Phosphorus 3.8, Magnesium 2.4 H, Total Bilirubin 2.3 H, Direct Bilirubin 0.4, AST 46, ALT 62, Lactate Dehydrogenase 1042 H, Albumin 3.3 L, CBC w Diff NO MAN DIFF REQ, RBC 3.25 L, MCV 89.9, MCH 30.9, MCHC 34.3, RDW 13.6, MPV 7.4, Gran % 73.1, Lymphocytes % 9.9 L, Monocytes % 12.3 H, Eosinophils % 4.4, Basophils % 0.3, Absolute Granulocytes 9.1 H, Absolute Lymphocytes 1.2, Absolute Monocytes 1.5 H, Absolute Eosinophils 0.5, Absolute Basophils 0, Retic Count 3.37 H Recent Imaging Studies: Telemetry tracings were personally reviewed and shows sinus rhythm Assessment/Plan Assessment/Plan 1. Renal cell cancer status post nephrectomy 07/01/18 now with acute CVA 2. History of hypertension 3. History of remote laryngeal cancer 4. Remote history of prior cardiac contusion/cardiac arrest due to trauma 5. Carotid artery disease - right ICA w hemodynamically significant disease 6. post nephrectomy retroperitoneal hematoma, stable 7. Nonsustained SVT 8. Hypertension Remains hemodynamically stable. No sustained arrhythmias noted on telemetry. Continue current regimen. Will need further evaluation of carotid artery disease in the future. Will also be a candidate for further screening for atrial fibrillation as an outpatient with an event monitor and possibly implantable loop recorder. Follow-up in our office after discharge. Rico Heaton MD [facility] Continue telemetry? No
--- NOTE | 2018-07-11 09:53 | PN- CRCU ---
Subjective HPI/Critical Care Issues: Doing ok Stable No new issues Objective Current Medications: Current Medications Sig/Lizeth Start time Last Medication Dose Route Stop Time Status Admin Amlodipine Besylate 5 MG DAILY 07/11 900 AC 07/11 PO 09 Amlodipine Besylate 10 MG DAILY 07/09 900 DC 07/10 PO 0847 Aspirin 81 MG DAILY 07/05 900 AC 07/11 PO 0919 Atorvastatin Calcium 80 MG 1700 07/02 1700 AC 07/10 PO 1653 Heparin Sodium 5,000 UNIT Q8 07/02 06 AC 07/11 (Porcine) SC 0541 Metoprolol Tartrate 25 MG BID 07/10 2100 AC 07/11 PO 0922 Metoprolol Tartrate 12.5 MG BID 07/05 900 DC 07/10 PO 0844 Omeprazole 40 MG DAILY AC 07/07 800 AC 07/11 PO 0542 Ondansetron HCl 4 MG Q6P PRN 07/01 1745 AC 07/05 IV 0336 Vital Signs & I&O Last 24 Hrs of Vitals and I&O: Vital Signs Date Time Temp Pulse Resp B/P B/P Pulse O2 O2 Flow FiO2 Mean Ox Delivery Rate 07/11 922 94 140/76 07/11 0920 98 140/76 / 0754 98.0 74 18 140/76 97 Room Air 08 0000 95 Room Air 07/11 0000 99.0 77 16 140/80 95 Room Air 07/10 2121 84 19 126/70 07/10 1600 98.1 98 22 110/70 96 Room Air Intake & Output 07/11 1600 08/ 0800 08 0000 Intake Total 50 240 Output Total 500 400 Balance -450 -160 Intake, Oral 50 240 Output, Urine 500 400 Impression/Plan Impression/Plan Impression/Plan: General: no apparent distress HEENT: NCAT, NO JVD, +R carotid bruit Heart: s1s2, RRR, no MRG Lungs: CTA b/l Abd: soft, nt Ext: no lower extremity peripheral edema; +LUE edema Left upper ext weakness This is a gentleman with history of hypertension, remote larngeal ca with prior surg and xrt to the larynx, remote history of trauma to the chest wall with cardiac arrest from cardiac contusion with prior fractured ribs, recent renal cell carcinoma, left nephrectomy done yesterday, no seem to have a postoperative acute right lenticulostriate artery stroke with left hemiparesis and facial droop. At this time is clinically stable. Issues include * Acute right lenticulostriate ischemic stroke in a patient with renal cell carcinoma, hypertension. TPA was contraindicated and he will be managed medically, Pt now has worsening carotid stenosis on the right side and needs eval, see vascular note. Does not need cea for few more weeks and needs out pt eval in few weeks with cta of the nect and pt to follow up with vascular in a month * Status post surgery for left-sided renal cell carcinoma, now with hematoma stable * Post op ileus, improving * Follow up upon dc from [place] with cardio * Dysphagia Now resolved * Hypertension * History of GERD/remote cured laryngeal ca, remote cardiac contusion history * So far in sinus rhythm, echo ok, no shunt,one episode of atrial tachyarrythmia now stable, No afib so far * S/p surg now with post op hematoma Dr Arnett aware and will follow * Renal cell carcinoma now s/p surg (presumed cured and no further rx needed for now) * RECOMMENDATION * Keep the head of bed elevated, cont low dose betablocker, amlodapine * Cont current meds, asa 162 mg * Lipitor 80 mg daily pt needs acute inpatient rehab and is a candidate for [place] - to go today Code Status: Full Code
[2018-07-11] MEDS ORDERED: ASPIRIN81 M4 PO (09:56)
[2018-07-11] MEDS ORDERED: NEXIUM20 M1 PO (10:04)
[2018-07-11 12:35] VITALS: BP 114/76
== END 2018-07-11 13:15 | DRG 981 ==
LOC: SDA 01:49 → CRI 01:49 → SDA 07:00 → ENRESERV 17:26 → ENTRNSPT 17:41 → EDTRNSPTSTS 17:46 → EDTRNSPT 17:46 → CRI 18:00 → CMPTRNSPT 18:20 → CRI 07-03 12:33
PROVIDERS: Internal Medicine; Nurse Practitioner; Physical Medicine & Rehabilitation Pain Medicine; Physician Assistant Surgical; Student in an Organized Health Care Education/Training Program; Urology
PROC: 0TT14ZZ Resection of Left Kidney, Percutaneous Endoscopic Approach (ICD-10-PCS; principal; 2018-07-01)
PROC: 0T778DZ Dilation of Left Ureter with Intraluminal Device, Via Natural or Artificial Opening Endoscopic (ICD-10-PCS; 2018-07-01)
PROC: 3E0T3BZ Introduction of Anesthetic Agent into Peripheral Nerves and Plexi, Percutaneous Approach (ICD-10-PCS; 2018-07-01)
DX: I97.821 Postprocedural cerebrovascular infarction following other surgery (principal); K66.1 Hemoperitoneum; C64.2 Malignant neoplasm of left kidney, except renal pelvis; I47.1 Supraventricular tachycardia; K91.30 Postprocedural intestinal obstruction, unspecified as to partial versus complete; N17.9 Acute kidney failure, unspecified; G81.94 Hemiplegia, unspecified affecting left nondominant side; Y83.6 Removal of other organ (partial) (total) as the cause of abnormal reaction of the patient, or of later complication, without mention of misadventure at the time of the procedure; R29.810 Facial weakness; K21.9 Gastro-esophageal reflux disease without esophagitis; Z87.891 Personal history of nicotine dependence; Z85.21 Personal history of malignant neoplasm of larynx; I25.10 Atherosclerotic heart disease of native coronary artery without angina pectoris; I10 Essential (primary) hypertension; I65.21 Occlusion and stenosis of right carotid artery; R13.10 Dysphagia, unspecified; R74.0 Nonspecific elevation of levels of transaminase and lactic acid dehydrogenase [LDH]; Y92.238 Other place in hospital as the place of occurrence of the external cause
CPT/HCPCS: CCU; 36415; 71045; 74021; 74176; 74230; 82436; 87086; 93005; 93010; 93306; 97110-GO; 97112-GO; 97116-GO; 97161-GP; 97165-GO; 97530-GO; C9290; J0131; J0360; J0690; J1170; J1644; J2405; J2550; J3250; J3490; J7042